=== PATIENT | female | born 1950 | race Caucasian/White ===

== ENCOUNTER 2016-11-17 01:02 | Inpatient (IN) | payer MEDICARE, OTHER ==
[~2016-11-17] VITALS: Ht 160 cm; Wt 88.1 kg
[2016-11-17 03:20] VITALS: BP 99/55
[2016-11-17 07:00] VITALS: BP 114/67
--- NOTE | 2016-11-17 09:35 | PDOC2 ---
CARMELA ADDISON CRANKSHAFT GRINDER 11/17/16 0935: CARDIAC CONSULT DATE OF CONSULT Date of Consult DATE: 11/17/16 TIME: 09:29 REASON FOR CONSULT Reason for Consult: Chest Pain REFERRING PHYSICIAN Referring Physician: Dr. Puckett SOURCE Source: Chart review, Patient HISTORY OF PRESENT ILLNESS HISTORY OF PRESENT ILLNESS This is a 66 yo female who initially presented to [facility] with complaints of chest pain. Patient reports walking out to vehicle, on the way back developed sudden onset of chest pain located in her central chest. Describes as heaviness/pressure. Associated with shortness of breath, diaphoresis, tingling in her face, jaw and neck pain, and left arm aching. After 20mins of symptoms, patient went into the ED for further evaluation. Gino any palpitations or dizziness. No recent fevers or illness. No exacerbating factors. Relieved with medications in ED. Reports having mild DUFF for some time, but feels this is because she is "out of shape". Has recently had increased stress related to grandson. Denies any history of anxiety. Does have history of GERD, but reports this pain is very different from what she generally experiences with GERD. Although, patient previously on PPI and quit taking scheduled medications, fairly recently. Has been using Tums PRN to control symptoms. Labs at [facility] notable for K 3.2, Cr 1.1, and d-dimer 0.52. Troponin <0.017. EKG shows SB rate 53 with first degree AVB. Patient transferred to [facility] for further care. Chest heaviness presently resolved. Does complain of severe RAMÍREZ and nausea. PAST MEDICAL HISTORY Cardiovascular: No pertinent hx Pulmonary: No pertinent hx GI: GERD Heme/Onc: No pertinent hx Hepatobiliary: No pertinent hx Psych: No pertinent hx Musculoskeletal: Other (back pain) Rheumatologic: Rheumatoid arthritis Infectious disease: No pertinent hx ENT: No pertinent hx Renal/: No pertinent hx Endocrine: No pertinent hx Dermatology: No pertinent hx PAST SURGICAL HISTORY Past Surgical History: Tubal Ligation, Tonsillectomy FAMILY HISTORY Family History: Cancer, Coronary Artery Disease (both mother and father. ) SOCIAL HISTORY Smoke: No ALCOHOL: none Drugs: None Lives: with Family ALLERGIES ALLERGIES: Coded Allergies: Penicillins (Verified Allergy, Intermediate, 11/17/16) lidocaine (Verified Allergy, Intermediate, 11/17/16) ROS Review of System 14 point ROS conducted with pertinent positives noted above in HPI PHYSICAL EXAM General: Alert, Oriented X3, Cooperative, No acute distress HEENT: Atraumatic, Mucous membr. moist/pink Lungs: Clear to auscultation, Normal air movement Heart: Regular rate, Normal S1, Normal S2, No murmurs Abdomen: Soft, No tenderness Extremities: No edema, Normal pulses Skin: No breakdown, No significant lesion Neuro: Normal speech, Sensation intact Psych/Mental Status: Mental status NL, Mood NL MUSCULOSKELETAL: Osteoarthritic changes both hands VITALS VITALS Vital Signs Date Time Temp Pulse Resp B/P Pulse Ox O2 Delivery O2 Flow Rate FiO2 11/17/16 07:00 97.7 67 20 114/67 96 Nasal Cannula 97.7 11/17/16 03:20 1.0 ASSESSMENT/PLAN ASSESSMENT/PLAN 1. Chest pain with typical and atypical features initial trop negative- will repeat now. EKG without ischemic changes ASA. check lipids, TSH. Pain possible GI in nature given noncompliance with PPI Although limited risk factors, will proceed with MPI to r/o ischemia, given symptomatology. \\ 2. Hypokalemia replaced. Check Mg 3. GERD recommend PPI 4. RAMÍREZ/nausea Tylenol and Zofran Problems: JUSTIN AGUILERA MD 11/17/16 1505: CARDIAC CONSULT ALLERGIES ALLERGIES: Coded Allergies: Penicillins (Verified Allergy, Intermediate, 11/17/16) lidocaine (Verified Allergy, Intermediate, 11/17/16) ASSESSMENT/PLAN ASSESSMENT/PLAN Patient seen and examined. Agree with BASKETBALL REFEREE's assessment and plan. Chest pain with atypical features and most probably GI etiology. Myocardial infarction ruled out. Lexiscan nuclear stress test did not show any significant ischemia. Replace potassium and consider proton pump inhibitors. Thank you for your consultation. Problems: CARMELA ADDISON APRN Nov 17, 2016 09:35 JUSTIN AGUILERA MD Nov 17, 2016 15:05
[2016-11-17] MEDS: ONDANSETRON PF 4 MG/2 ML VIAL. IV PRN ×2 (10:10→15:44)
[2016-11-17] MEDS: ACETAMINOPHEN 325 MG TABLET. PO PRN (10:18)
[2016-11-17] MEDS ORDERED: REGADENOSON 0.4 MG/5 ML DISP.SYRIN. IV ONE (11:15)
[2016-11-17 11:32] LABS: CALCIUM 8.7 mg/dL (8.5-10.1); CREATININE 0.8 mg/dL (0.6-1.0); GFR 71.8; MAGNESIUM 1.8 mg/dL (1.8-2.4); POTASSIUM 3.8 mmol/L (3.5-5.1)
[2016-11-17 11:33] LABS: CHOLESTEROL/HDL RATIO 3.8
[2016-11-17 11:35] VITALS: BP 128/67
--- NOTE | 2016-11-17 11:37 | SSS ---
ADMIT DATE: 11/17/2016 CHIEF COMPLAINT: Chest pain. HISTORY OF PRESENT ILLNESS: The patient is a pleasant 66-year-old female who appears younger than her stated age. She presented with chest pain. She initially went to [facility]. Dr. Velez called me in the morning transferred her here to our facility for continued cardiac workup. PAST MEDICAL HISTORY: Pretty benign. ALLERGIES: PENICILLIN, LIDOCAINE. FAMILY HISTORY: Coronary artery disease in her mom. SOCIAL HISTORY: She does not drink, smoke or take drugs. She is under a lot of stress at home. She apparently has her grandson in town trying to take care of her and he has a lot of social issues. MEDICATIONS: Reviewed, please refer to the MRAD. REVIEW OF SYSTEMS: GENERAL: No history of weight change, weakness or fevers. SKIN: No bruising, hair changes or rashes. EYES: No blurred, double or loss of vision. NOSE AND THROAT: No history of nosebleeds, hoarseness or sore throat. HEART: She complains of chest pain. LUNGS: Denies cough, hemoptysis, wheezing or shortness of breath. GASTROINTESTINAL: Denies changes in appetite, nausea, vomiting, diarrhea or constipation. GENITOURINARY: No history of frequency, urgency, hesitancy or nocturia. NEUROLOGIC: Denies history of numbness, tingling, tremor or weakness. PSYCHIATRIC: No history of panic, anxiety or depression. ENDOCRINE: No history of heat or cold intolerance, polyuria or polydipsia. EXTREMITIES: Denies muscle weakness, joint pain, pain on walking or stiffness. PHYSICAL EXAMINATION: VITAL SIGNS: Temperature afebrile, pulse 80, respirations 18, blood pressure 144/90. GENERAL: She is alert, cooperative. HEART: Normal S1, S2. LUNGS: Clear. ABDOMEN: Soft, positive bowel sounds. EXTREMITIES: No edema. SKIN: No rashes. PSYCHIATRIC: She is stable. VASCULAR: Good capillary refill. ENDOCRINE: No thyromegaly. LYMPHATICS: No cervical nodes. HEMATOPOIETIC: No bruising. LABORATORY DATA: Troponin is 0. EKG shows sinus rhythm. ASSESSMENT AND PLAN: Chest pain, rule out coronary disease. We will do cardiac monitoring, serial enzymes, serial EKGs, echocardiogram, consult Cardiology, daily aspirin. Continue home medicines. She might need a stress test. NIAL Boy REID DO DR: Sherin JOB#: [id number] / [id number]
--- NOTE | 2016-11-17 13:58 | RAD ---
APPROVED REPORT Test Type: Pharmacological Stress Nurse/Tech: Rhoda Reynoso R.N. Test Indications: chest pain Cardiac History: none Medications: see ehr Medical History: see ehr Resting ECG: sr Resting Heart Rate: 66 bpm Resting Blood Pressure: 120/63mmHg Pretest Chest Pain: No chest pain Nurse/Tech Notes lungs cta, heart tones regular, good radial pulse Consent: The procedure was explained to the patient in lay terms. Informed consent was witnessed. Luis Angel eout was entered into [employer]. History and Stress Test performed by Rhoda Reynoso R.N. Pharm. Details Pharmacologic stress testing was performed using 0.4mg per 5ml of regadenoson given intravenously ove r 7-10 seconds. Stress Symptoms No chest pain or symptoms.Nausea, Fatigue POST EXERCISE Reason for Termination: Infusion complete Target HR: No Max HR: 94 bpm Max Blood Pressure: 155/74mmHg Chest Pain: No. Arrhythmia: No. ST Change: No. INTERPRETATION Stress EKG Conclusion: No evidence of stress induced EKG changes. Imaging Protocol IMAGE PROTOCOL: Rest Tc-99m/stress Tc-99m 1 day Rest: Stress: Viability: Radiopharm.Tc99m [id number] Sestamibi Dose10.5mCi 32.9mCi Duration 15min. 10min. Img Date 11/17/2016 11/17/2016 Inj-Img [id number]. 60min. Rest Admin Site:IV - Left AntecubitalAdministrator:[place] (R)(N) Stress Admin Site: IV - Left AntecubitalAdministrator: RIK Olsen STRESS DATA End Diast. Vol.73.0mlAv. Heart Rate76.0bpm End Syst. Vol.6.0mlCO Index BSA0.0L/min Myocardial Cnrc930.0gEject. Hbqfgfdx90.0% Stress Rates Pk. Fill Rate3.51EDV/secLVtime Pk. Fill 201.12msec Pk. Empty Rate3.69ESV/secLVtime Pk. Yqmmz417.85msec 07/28 Pk. Fill1.45EDV/sec Stress Scores Regional WT0.00Summed WT0.00 Regional WM0.00Summed WM0.00 The rest and stress images show normal perfusion, normal contraction and thickening. LV Perf. Quant 17 Seg. SSS0.00 17 Seg. SRS0.00 17 Seg. SDS0.00 Stress Defect Extent (% LAD)0.00Rest Defect Extent (% LAD)0.00Rev. Defect Extent (% LAD)0.00 Stress Defect Extent (% LCX) 0.00Rest Defect Extent (% LCX)0.00Rev. Defect Extent (% LCX)0.00 Stress Defect Extent (% RCA)0.00Rest Defect Extent (% RCA)0.00Rev. Defect Extent (% RCA)0.00 Stress Defect Extent (% CLEMENTE)0.00Rest Defect Extent (% CLEMENTE)0.00Rev. Defect Extent (% CLEMENTE)0.00 Other Information Quality:Good Risk Assessment: Low Risk Conclusion 1. No evidence of stress induced EKG changes. 2. Normal myocardial perfusion at stress/rest. EF > 65% 3. Low risk study
[2016-11-17 14:43] VITALS: BP 135/74
[2016-11-17 19:45] VITALS: BP 124/77
[2016-11-17 23:30] VITALS: BP 129/78
[2016-11-17] MEDS ORDERED: ASPIRIN ENTERIC COATED 325 MG TABLET.DR. PO ONE (23:30)
[2016-11-18] VITALS (14 sets, daily range): BP systolic 98–150; BP diastolic 55–90
[2016-11-18] MEDS: ACETAMINOPHEN 325 MG TABLET. PO PRN ×2 (00:06→12:33)
--- NOTE | 2016-11-18 06:20 | ACF ---
Admit Criteria Forms Admit Criteria Forms Admit Criteria Forms CARDIOLOGY GRG Clinical Indications for Admission to Inpatient Care ( Place 'X' for any and all applicable criteria): Hospital admission is needed for appropriate care of the patient because of ANY ONE of the following (1): [ ] I. Hemodynamic instability as indicated by ALL of the following (1)(2)(3) (4)(5) [ ]a) Vital signs or other findings not as expected for chronic patient condition or baseline [ ]b) Instability indicated by ANY ONE of the following: [ ]i) Hypotension [ ]ii) Symptomatic Tachycardia unresponsive to treatment ( e.g., analgesia, fluids, sedation as indicated) [ ]iii) Inadequate perfusion indicated by ANY ONE of the following: [ ] 1) Lactic acidosis (> 2 mmol/L) [ ] 2) New abnormal capillary refill (> 3 seconds) [ ] 3) Reduced urine output [ ] 4) New altered mental status [ ]iv) Orthostatic vital sign changes unresponsive to treatment (e.g., fluids) [ ]v) IV inotropic or vasopressor medication required to maintain adequate blood pressure or perfusion [ ] II. Severe heart failure as indicated by ANY ONE of the following(17)(18) [ ]a) Respiratory distress [ ]b) Hypotension [ ]c) Anasarca (refractory to outpatient therapy) [ ]d) Cardiac arrhythmias of immediate concern [ ]e) Myocardial ischemia [ ] III. Cardiac arrhythmias or findings of immediate concern indicated by ANY ONE of the following (19)(20): [ ] a) Heart rhythms that are inherently dangerous or unstable indicated by ANY ONE of the following (21)(22)(23): [ ] i) Resuscitated ventricular fibrillation or cardiac arrest [ ] ii) Ventricular escape rhythm [ ] iii) Sustained ventricular tachycardia (30 seconds or more of ventricular rhythm at greater than 100 beats per minute) [ ] iv) Nonsustained ventricular tachycardia and ANY ONE of the following: [ ] 1) Suspected cardiac ischemia as cause or consequence of ventricular tachycardia [ ] 2) In setting of acute myocarditis [ ] b) Unstable cardiac conduction defects indicated by ANY ONE of the following(23)(24)(25) [ ] i) Type II second-degree atrioventricular block [ ]ii) Third-degree atrioventricular block [ ]iii) New-onset left bundle branch block with suspected myocardial ischemia [ ]c) Any heart rhythm and ANY ONE of the following (21)(22)(26)(27) (28) [ ] i) Continuous long-term ECG monitoring needed (e.g., initiation of drug requiring monitoring for more than 24 hours) [ ] ii) Patient has automatic implanted cardioverter defibrillator that is repeatedly firing, malfunctioning, or in need of immediate adjustment of settings beyond the scope of ambulatory or observation care [ ]d) Heart rhythms of concern due to ANY ONE of the following: [ ] i) Hypotension [ ] ii) Respiratory distress [ ] iii) Association with other significant symptoms (e.g., bradycardia with syncope or ongoing dizziness, supraventricular tachycardia with chest pain (14)(15)(17) [ ] IV. Monitoring for cardiac contusion beyond the scope of observation care needed [A](30)(31)(32) [ ] V. Surgical or device complication (e.g., valve replacement complication , pacemaker dysfunction) (35)(41)(44)(45)(46) [ ] . Inpatient palliative care needed. [B](49) Also use Inpatient Palliative Care Criteria [ ] VII. Nonbacterial thrombotic (marantic) endocarditis (36)(43)(47)(48) [X] VIII. Cardiology condition, symptom, or finding for which emergency and observation care has failed or are not considered appropriate. [ ] IX. Acute valvular disease requiring inpatient as indicated by ANY ONE of the following (41) [ ]a) Acute valvular regurgitation (42) [ ]b) Noninfectious valvulitis (43) [ ]c) Obstructive valve thrombosis [ ]d) Paravalvular leak [ ]e) Other significant valvular disorder remaining after emergency or observation level of care (as appropriate) [ ]X. Pericardial disease requiring inpatient treatment as indicated by ANY ONE of the following (33)(34)(35)(36)(37) [ ]a) Suspected tamponade (38)(39)(40) [ ]b) Hemopericardium [ ]c) Other significant pericardial disorder remaining after emergency or observation level of care (as appropriate) [ ] XI. Cardiac ischemia beyond scope of emergency and observation care. [ ] XII. Hypertension requiring inpatient treatment as indicated by ANY ONE of the following (6)(7)(8) [ ]a) SBP greater than 220 mm Hg or DBP greater than 120 mmHg despite treatment [ ]b) SBP greater than 140 mm Hg or DBP greater than 100 mm Hg with evidence of acute end organ damage as indicated by ANY ONE of the following [ ] i) Encephalopathy [ ] ii) Acute renal failure as indicated by new onset of ANY ONE of the following (9)(10)(11)(12)(13) [ ]1) 3-fold rise in serum creatinine from baseline [ ]2) Serum creatinine greater than 4 mg/dL ( 354 micromoles/L) with acute rise greater than 0.5 mg/dL (44.2 micromoles/L) [ ]3) Reduction of more than 75% in estimated glomerular filtration rate from baseline [ ]4) Estimated glomerular filtration rate less than 35 mL/min/1.73m2 (0.59 mL/sec/1.73m2) in child up to 18 years of age [ ]5) Cessation of urine output indicated by ALL of the following [ ]A. Adequate volume status [ ]B. Inadequate urine output as indicated by ANY ONE of the following [ ]a. Urine output less than 0.3 mL/kg/hr for 24 hours [ ]b. Anuria (urine output less than 0.1 mL/kg/hr) for 12 hours [ ] iii) Aortic dissection [ ] iv) Myocardial Ischemia [ ] v) Left ventricular heart failure [ ]vi) Retinal Hemorrhage [ ]vii) Other significant finding [ ]c) Hypertension in child requiring inpatient treatment as indicated by ALL of the following(14)(15)(16) [ ] i) Outpatient treatment not effective, not available, or not appropriate [ ]ii) SBP or DBP greater than 95th percentile for age [ ]iii) Evidence of acute end organ damage as indicated by ANY ONE of the following [ ]1) Altered mental status [ ]2) Acute renal failure as indicated by new onset of ANY ONE of the following(9)(10)(11)(12)(13) [ ]A. 3-fold rise in serum creatinine from baseline [ ]B. Serum creatinine greater than 4 mg/dL (354 micromoles/L) with acute rise greater than 0.5 mg/dL (44.2 micromoles/L) [ ]C. Reduction of more than 75% in estimated glomerular filtration rate from baseline [ ]D. Estimated glomerular filtration rate less than 35 mL/min/1.73m2 (0.59 mL/sec/1.73m2) in child up to 18 years of age [ ]E. Cessation of urine output indicated by ALL of the following [ ]a. Adequate volume status [ ]b. Inadequate urine output as indicated by ANY ONE of the following [ ]i) Urine output less than 0.3 mL/kg/hr for 24 hours [ ]ii) Anuria ( urine output less than 0.1 mL/kg/hr) for 12 hours [ ]3) Severe headache [ ]4) Visual disturbance [ ]5) Retinal hemorrhage [ ]6) Other significant finding [ ]XIII. Complications of transplanted heart indicated by ANY ONE of the following(61): [ ]a) Acute graft rejection requiring inpatient management (eg, intravenous immunosuppression)(62)(63) [ ]b) Acute graft heart failure indicated by ANY ONE of the following(64): [ ]i) Hemodynamic instability [ ]ii) Cardiac arrhythmias of immediate concern [ ]iii) Pulmonary edema that is very severe (eg, mechanical ventilation needed, imminent or likely, need for 100% oxygen to keep oxygen saturation above 90%) [ ]iv) Pulmonary edema that is persistent as indicated by ALL of the following: [ ]1) New need for oxygen therapy to keep oxygen saturation above 90% (or increased FiO2 need from baseline) [ ]2) Has not improved sufficiently with emergency department or observation care IV diuretics or other heart failure treatments[E] [ ]v) Altered mental status that is severe or persistent [ ]vi) Increased creatinine (new on laboratory test) with reduction of more than 50% in estimated glomerular filtration rate from baseline [ ]vii) Progressively (ongoing) rising creatinine (known from past laboratory test) with reduction of more than 25% in estimated glomerular filtration rate from baseline [ ]viii) Acute renal failure [ ]ix) Acute peripheral ischemia (eg, examination shows pulseless, cool, mottled, or cyanotic extremity) [ ]x) Pulmonary artery catheter monitoring needed [ ]xi) Other sign or symptom of heart failure requiring inpatient treatment (ie, too severe or not responsive to outpatient and observation care treatment) [ ]c) Infection requiring inpatient management (eg, Hemodynamic instability, need for intravenous antimicrobial treatment)(66)(67)(68)(69)(70) [ ]d) Cardiac allograft vasculopathy requiring inpatient management ( eg evidence of cardiac ischemia)(71) [ ]e) Other complication of transplanted heart (eg, stroke, severe pulmonary hypertension, severe valvular dysfunction) requiring inpatient management(72) The original [facility] content created by [facility] has been revised. The portions of the content which have been revised are identified through the use of italic text or in bold, and [facility] has neither reviewed nor approved the modified material. All other unmodified content is copyright [facility]. Please see references footnoted in the original [facility] edition 2016 ROSALBA STRANGE Nov 18, 2016 06:20
[2016-11-18 06:25] LABS: BASO % 1 % (0-3); EOS % 1 % (0-3); HEMATOCRIT 39.2 % (36.0-47.0); HEMOGLOBIN 13.3 g/dL (12.0-15.5); LYMPH # 1.7 x10^3/uL (1.0-4.8); LYMPH % 23 % (24-48); MEAN CORPUSCULAR HEMOGLOBIN 30 pg (25-35); MEAN CORPUSCULAR HGB CONC 34 g/dL (31-37); MEAN CORPUSCULAR VOLUME 88 fL (79-100); MONO % 9 % (0-9); NEUT % 66 % (31-73); PLATELET COUNT 215 x10^3/uL (140-400); RED BLOOD COUNT 4.44 x10^6/uL (3.50-5.40); RED CELL DISTRIBUTION WIDTH 13.5 % (11.5-14.5); WHITE BLOOD COUNT 7.2 x10^3/uL (4.0-11.0)
[2016-11-18] MEDS ORDERED: LIDOCAINE 2% 20 ML VIAL. ONE (10:16)
[2016-11-18] MEDS ORDERED: IOHEXOL 300 MG/ML 100ML VIAL. ONE (10:16)
[2016-11-18] MEDS ORDERED: NITROGLYCERIN 200 MCG/2 ML SYRINGE FOR CATH/VASC LAB. ONE (10:57)
[2016-11-18] MEDS ORDERED: HEPARIN for IV BOLUS 10,000 UNIT/10 ML VIAL. ONE (10:57)
[2016-11-18] MEDS ORDERED: VERAPAMIL 5 MG/2 ML VIAL. ONE (10:57)
[2016-11-18] MEDS ORDERED: MIDAZOLAM HCL/PF 5 MG/5 ML VIAL. ONE (10:57)
[2016-11-18] MEDS ORDERED: fentaNYL PF VIAL 250 MCG/5 ML VIAL ONE (10:57)
[2016-11-18] MEDS ORDERED: VERAPAMIL 5 MG/2 ML VIAL. IART ONE (11:30)
[2016-11-18] MEDS ORDERED: MIDAZOLAM HCL/PF 5 MG/5 ML VIAL. IV ONE (11:30)
[2016-11-18] MEDS ORDERED: fentaNYL PF VIAL 250 MCG/5 ML VIAL IV ONE (11:30)
[2016-11-18] MEDS ORDERED: HEPARIN for IV BOLUS 10,000 UNIT/10 ML VIAL. IART ONE (11:30)
[2016-11-18] MEDS ORDERED: NITROGLYCERIN 200 MCG/2 ML SYRINGE FOR CATH/VASC LAB. IART ONE (11:30)
[2016-11-18] MEDS ORDERED: IOHEXOL 300 MG/ML 100ML VIAL. IART ONE (11:30)
[2016-11-18] MEDS ORDERED: LIDOCAINE 2% 20 ML VIAL. IJ ONE (11:30)
[2016-11-18] MEDS: IV 1/2 NORMAL SALINE 1,000 ML IV SCH (11:54)
--- NOTE | 2016-11-18 11:54 | PDOC ---
MODERATE SEDATION ASSESSMENT RISKS/ALTERNATIVES Risks/Alternatives Risks and alternatives of this type of sedation and procedure discussed with: RISK/ALTERNATIVES: Patient H & P ON CHART H & P H & P on chart and reviewed for co-morbid conditions and appropriate labs. H&P ON CHART: Yes STATUS PREG STATUS ASSESSED: N/A MEDS/ALLERGIES REVIEWED Meds/Allergies Reviewed Medications and Allergies including time and route of recently administered narcotics and sedatives. MEDS/ALLERGIES REVIEWED: Yes ASA RATING ASA RATING: II AIRWAY ASSESSMENT Airway Assessment Airway patency, oral function limitations, presence of caps, crowns, dentures, partials, and ability to extend neck assessed. AIRWAY ASSESSMENT: Yes MALLAMPATI SCORE MALLAMPATI SCORE: II PRE-SEDATION ASSESSMENT PRE-SEDATION ASSESSMENT: Yes JUSTIN AGUILERA MD Nov 18, 2016 11:54
[2016-11-18] MEDS ORDERED: NITROGLYCERIN SUBLINGUAL 0.4 MG BOTTLE OF 25. SL PRN (12:00)
--- NOTE | 2016-11-18 12:08 | CARD ---
APPROVED REPORT Procedure(s) performed: Left heart catheterization, selective coronary angiography and left ventricul ography via right transradial approach INDICATION The indication(s) include : non-STEMI . PROCEDURE NARRATIVE After explaining the risks, benefits and alternative options, informed consent was obtained from sima ent. Patient was brought to the cardiac [facility]ipe [facility] and right wrist was prepped and draped in the usual fashion after confirming a positive modified Obed's test. Arterial access was obtained in the [facility] t radial artery and a 6 Persian sheath was inserted. 6 Persian Rudy catheter and 6 Persian XB 3.0 sarah de with sideholes were used to perform selective angiography of the right and left coronary arteries respectively. 6 Persian pigtail catheter was used to perform left ventriculography. Patient tolerate d the procedure well. Hemostasis was achieved using TR band. There were no immediate complications. The following findings were noted. FINDINGS 1. Hemodynamics: Left ventricular end-diastolic pressure of 20 mmHg. Pullback gradient of 10 mmHg a cross the aortic valve. 2. Left ventriculography: Normal left ventricle systolic function with ejection fraction estimated at 65%. No significant mitral regurgitation seen. 3. Coronary angiography: a. The left main coronary artery arose from the left sinus of Valsalva, gave rise to the left anteri or descending and left circumflex arteries and showed 70-80% stenosis with dampening of waveforms wit h catheter engagement. b. The left anterior descending artery showed 40-50% midsegment stenosis. c. The left circumflex artery did not show any significant stenosis. d. The right coronary artery was a dominant vessel arising from the right sinus of Valsalva that did not show any significant stenosis. Conclusion 1. Significant left main coronary artery stenosis 2. Normal left ventricle systolic function with ejection fraction estimated at 65%. Recommendations Cardiothoracic surgery team consultation for coronary artery bypass surgery.
[2016-11-18] MEDS: PANTOPRAZOLE 40 MG TABLET.DR. PO SCH (12:30)
--- NOTE | 2016-11-18 13:40 | EKG ---
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
--- NOTE | 2016-11-18 13:43 | PDOC ---
PROGRESS NOTES Chief Complaint Chief Complaint chest pain NSTEMI GERD CAD Hypokalemia History of Present Illness History of Present Illness cath today 80% Left main, refer to CT surg replace mag and K+ today cont current other Vitals Vitals Vital Signs Date Time Temp Pulse Resp B/P Pulse Ox O2 Delivery O2 Flow Rate FiO2 11/18/16 12:45 95 Room Air 2.0 11/18/16 11:38 77 16 11/18/16 11:34 115/67 11/18/16 11:00 97.7 97.7 Physical Exam General: Alert, Oriented X3, Cooperative, No acute distress Heart: Regular rate, Normal S1, Normal S2, No murmurs Lungs: Clear Abdomen: Soft, No tenderness Extremities: No clubbing, No edema, Normal pulses Skin: No breakdown, No significant lesion Labs LABS Laboratory Tests Test 11/17/16 17:45 11/17/16 23:45 11/18/16 05:55 Troponin I Quantitative 1.158ng/mL (0.000-0.055) 1.569ng/mL (0.000-0.055) 1.700ng/mL (0.000-0.055) White Blood Count 7.2x10^3/uL (4.0-11.0) Red Blood Count 4.44x10^6/uL (3.50-5.40) Hemoglobin 13.3g/dL (12.0-15.5) Hematocrit 39.2% (36.0-47.0) Mean Corpuscular Volume 88fL (79-100) Mean Corpuscular Hemoglobin 30pg (25-35) Mean Corpuscular Hemoglobin Concent 34g/dL (31-37) Red Cell Distribution Width 13.5% (11.5-14.5) Platelet Count 215x10^3/uL (140-400) Neutrophils (%) (Auto) 66% (31-73) Lymphocytes (%) (Auto) 23% (24-48) Monocytes (%) (Auto) 9% (0-9) Eosinophils (%) (Auto) 1% (0-3) Basophils (%) (Auto) 1% (0-3) Neutrophils # (Auto) 4.8x10^3uL (1.8-7.7) Lymphocytes # (Auto) 1.7x10^3/uL (1.0-4.8) Monocytes # (Auto) 0.6x10^3/uL (0.0-1.1) Eosinophils # (Auto) 0.1x10^3/uL (0.0-0.7) Basophils # (Auto) 0.0x10^3/uL (0.0-0.2) Review of Systems Review of Systems + nausea weakness after cath today no event no chest pain Comment Review of Relevant I have reviewed the following items melva (where applicable) has been applied. Labs Laboratory Tests Test 11/17/16 10:35 11/17/16 17:45 11/17/16 23:45 11/18/16 05:55 Sodium Level 140mmol/L (136-145) Potassium Level 3.8mmol/L (3.5-5.1) Chloride Level 106mmol/L (98-107) Carbon Dioxide Level 26mmol/L (21-32) Anion Gap 8 (6-14) Blood Urea Nitrogen 11mg/dL (7-20) Creatinine 0.8mg/dL (0.6-1.0) Estimated GFR (Cockcroft-Gault) 71.8 Glucose Level 122mg/dL (70-99) Calcium Level 8.7mg/dL (8.5-10.1) Magnesium Level 1.8mg/dL (1.8-2.4) Troponin I Quantitative 0.880ng/mL (0.000-0.055) 1.158ng/mL (0.000-0.055) 1.569ng/mL (0.000-0.055) 1.700ng/mL (0.000-0.055) Triglycerides Level 134mg/dL (0-150) Cholesterol Level 192mg/dL (0-200) LDL Cholesterol, Calculated 115mg/dL (0-100) VLDL Cholesterol, Calculated 27mg/dL (0-40) Non-HDL Cholesterol Calculated 142mg/dL (0-129) HDL Cholesterol 50mg/dL (40-60) Cholesterol/HDL Ratio 3.8 Thyroid Stimulating Hormone (TSH) 1.673uIU/mL (0.358-3.74) White Blood Count 7.2x10^3/uL (4.0-11.0) Red Blood Count 4.44x10^6/uL (3.50-5.40) Hemoglobin 13.3g/dL (12.0-15.5) Hematocrit 39.2% (36.0-47.0) Mean Corpuscular Volume 88fL (79-100) Mean Corpuscular Hemoglobin 30pg (25-35) Mean Corpuscular Hemoglobin Concent 34g/dL (31-37) Red Cell Distribution Width 13.5% (11.5-14.5) Platelet Count 215x10^3/uL (140-400) Neutrophils (%) (Auto) 66% (31-73) Lymphocytes (%) (Auto) 23% (24-48) Monocytes (%) (Auto) 9% (0-9) Eosinophils (%) (Auto) 1% (0-3) Basophils (%) (Auto) 1% (0-3) Neutrophils # (Auto) 4.8x10^3uL (1.8-7.7) Lymphocytes # (Auto) 1.7x10^3/uL (1.0-4.8) Monocytes # (Auto) 0.6x10^3/uL (0.0-1.1) Eosinophils # (Auto) 0.1x10^3/uL (0.0-0.7) Basophils # (Auto) 0.0x10^3/uL (0.0-0.2) Laboratory Tests Test 11/17/16 17:45 11/17/16 23:45 11/18/16 05:55 Troponin I Quantitative 1.158ng/mL (0.000-0.055) 1.569ng/mL (0.000-0.055) 1.700ng/mL (0.000-0.055) White Blood Count 7.2x10^3/uL (4.0-11.0) Red Blood Count 4.44x10^6/uL (3.50-5.40) Hemoglobin 13.3g/dL (12.0-15.5) Hematocrit 39.2% (36.0-47.0) Mean Corpuscular Volume 88fL (79-100) Mean Corpuscular Hemoglobin 30pg (25-35) Mean Corpuscular Hemoglobin Concent 34g/dL (31-37) Red Cell Distribution Width 13.5% (11.5-14.5) Platelet Count 215x10^3/uL (140-400) Neutrophils (%) (Auto) 66% (31-73) Lymphocytes (%) (Auto) 23% (24-48) Monocytes (%) (Auto) 9% (0-9) Eosinophils (%) (Auto) 1% (0-3) Basophils (%) (Auto) 1% (0-3) Neutrophils # (Auto) 4.8x10^3uL (1.8-7.7) Lymphocytes # (Auto) 1.7x10^3/uL (1.0-4.8) Monocytes # (Auto) 0.6x10^3/uL (0.0-1.1) Eosinophils # (Auto) 0.1x10^3/uL (0.0-0.7) Basophils # (Auto) 0.0x10^3/uL (0.0-0.2) Medications Current Medications Acetaminophen (Tylenol) 650 mg PRN Q6HRS PRN PO PAIN Last administered on 12:33; Start 11/17/16 at 10:00 Ondansetron HCl (Zofran) 4 mg PRN Q6HRS PRN IV NAUSEA/VOMITING Last administered on 11/17/16 15:44; Start 11/17/16 at 10:15 Pantoprazole Sodium (Protonix) 40 mg DAILYAC PO Last administered on 11/18/16 12:30; Start 11/18/16 at 07:30 Regadenoson (Lexiscan) 0.4 mg 1X ONCE IV Last administered on 11/17/16 11:45 ; Start 11/17/16 at 11:15; Stop 11/17/16 at 11:16; Status DC Aspirin (Ecotrin) 325 mg 1X ONCE PO Last administered on 11/18/16 00:06; Start 11/17/16 at 23:30; Stop 11/17/16 at 23:31; Status DC Iohexol 100 ml 100 ml STK-MED ONCE .ROUTE ; Start 11/18/16 at 10:16; Stop at 10:17; Status DC Heparin Sodium/ Sodium Chloride 1,000 ml @ As Directed STK-MED ONCE .ROUTE ; Start 11/18/16 at 10:16; Stop 11/18/16 at 10:17; Status DC Lidocaine HCl 20 ml STK-MED ONCE .ROUTE ; Start 11/18/16 at 10:16; Stop at 10:17; Status DC Nitroglycerin (Nitroglycerin) 200 mcg STK-MED ONCE .ROUTE ; Start 11/18/16 at 10 :57; Stop 11/18/16 at 10:58; Status DC Verapamil HCl (Verapamil) 5 mg STK-MED ONCE .ROUTE ; Start 11/18/16 at 10:57; Stop 11/18/16 at 10:58; Status DC Midazolam HCl (Versed) 5 mg STK-MED ONCE .ROUTE ; Start 11/18/16 at 10:57; Stop 11/18/16 at 10:58; Status DC Fentanyl Citrate (Fentanyl 5ml Vial) 250 mcg STK-MED ONCE .ROUTE ; Start at 10:57; Stop 11/18/16 at 10:58; Status DC Heparin Sodium (Porcine) (Heparin Sodium) 10,000 unit STK-MED ONCE .ROUTE ; Start 11/18/16 at 10:57; Stop 11/18/16 at 10:58; Status DC Nitroglycerin (Nitroglycerin) 200 mcg 1X ONCE IART Last administered on 11:34; Start 11/18/16 at 11:30; Stop 11/18/16 at 11:31; Status DC Verapamil HCl (Verapamil) 2.5 mg 1X ONCE IART Last administered on 11/18/16 11:34; Start 11/18/16 at 11:30; Stop 11/18/16 at 11:31; Status DC Heparin Sodium (Porcine) (Heparin Sodium) 2,500 unit 1X ONCE IART Last administered on 11/18/16 11:41; Start 11/18/16 at 11:30; Stop 11/18/16 at 11:31 ; Status DC Heparin Sodium/ Sodium Chloride 1,000 unit 1X ONCE IART Last administered on 11:34; Start 11/18/16 at 11:30; Stop 11/18/16 at 11:31; Status DC Midazolam HCl (Versed) 5 mg 1X ONCE IV Last administered on 11/18/16 11:33; Start 11/18/16 at 11:30; Stop 11/18/16 at 11:31; Status DC Fentanyl Citrate (Fentanyl 5ml Vial) 250 mcg 1X ONCE IV Last administered on 11:33; Start 11/18/16 at 11:30; Stop 11/18/16 at 11:31; Status DC Iohexol (Omnipaque 300 Mg/ml) 100 ml 1X ONCE IART Last administered on 11:34; Start 11/18/16 at 11:30; Stop 11/18/16 at 11:31; Status DC Lidocaine HCl 20 ml 20 ml 1X ONCE IJ Last administered on 11/18/16 11:34; Start 11/18/16 at 11:30; Stop 11/18/16 at 11:31; Status DC Sodium Chloride (Iv Sodium Chloride 0.45%) 1,000 ml @ 60 mls/hr [id number] IV Last administered on 11/18/16 11:54; Start 11/18/16 at 11:54 Nitroglycerin (Nitrostat) 0.4 mg PRN Q5MIN PRN SL CHEST PAIN; Start 11/18/16 at 12:00 Vitals/I & O Vital Sign - Last 24 Hours 11/17/16 11/17/16 11/17/16 11/17/16 14:43 19:45 20:15 23:30 Temp 97.7 97.9 98.0 97.7 97.9 98.0 Pulse 71 71 73 Resp 22 18 18 B/P 135/74 124/77 129/78 Pulse Ox 93 95 92 O2 Delivery Room Air Room Air Nasal Cannula Room Air O2 Flow Rate 1.0 11/18/16 11/18/16 11/18/16 11/18/16 03:25 07:00 08:00 11:00 Temp 98.5 98.1 97.7 98.5 98.1 97.7 Pulse 76 70 67 Resp 18 18 18 B/P 98/68 130/82 139/90 Pulse Ox 94 93 95 O2 Delivery Room Air Room Air Room Air Room Air 11/18/16 11/18/16 11/18/16 11/18/16 11:33 11:34 11:38 12:45 Pulse 78 77 Resp 16 16 B/P 115/67 Pulse Ox 95 95 95 O2 Delivery Room Air Nasal Cannula Room Air O2 Flow Rate 2.0 2.0 Intake and Output 11/17/16 11/17/16 11/18/16 15:00 23:00 07:00 Intake Total 0 ml Output Total 1750 ml 500 ml Balance -1750 ml -500 ml TOY CHAMPION MD Nov 18, 2016 13:43
[2016-11-18] MEDS ORDERED: POTASSIUM CHLORIDE 20 MEQ TABLET.ER. PO ONE (13:45)
--- NOTE | 2016-11-18 13:56 | RAD ---
Exam: AP portable chest. History: Chest pain, preoperative, CABG. Comparison: None. Findings: The heart and mediastinal structures are within normal limits for size. Lungs are without infiltrate. No pneumothorax or pleural effusion is appreciated. Impression: 1. No acute cardiopulmonary process.
[2016-11-18] MEDS ORDERED: MAGNESIUM SULFATE 2GM 50 ML IV ONE (14:00)
[2016-11-18] MEDS: DOCUSATE SODIUM 100 MG CAPSULE. PO SCH (14:00)
[2016-11-18] MEDS: ONDANSETRON PF 4 MG/2 ML VIAL. IV PRN (14:01)
[2016-11-18 14:35] LABS: INR 1.1 (0.8-1.1); PROTHROMBIN TIME PATIENT 13.1 SEC (11.7-14.0)
[2016-11-18] MEDS ORDERED: IOHEXOL 300 MG/ML 75 ML VIAL IV ONE (15:00)
[2016-11-18] MEDS ORDERED: CONTRAST GIVEN MC PRN (15:00)
--- NOTE | 2016-11-18 15:03 | PDOC2 ---
CONSULT Date of Consult Date of Consult DATE: 11/18/16 TIME: 15:00 Reason for Consult Reason for Consult: NSTEMI-LMS disease Referring Physician Referring Physician: Dr Noyola Identification/Chief Complaint Chief Complaint Chest pain Source Source: Chart review, Patient History of Present Illness Reason for Visit: Ms Ellington is a pleasant 66-year-old female who presented yesterday to [facility] with acute onset of chest pain. She describes the pain as heaviness/ pressure. Associated with shortness of breath, diaphoresis, tingling in her face , jaw and neck pain, and left arm aching. Denied palpitations. Relieved with medications in ED. no EKG changes, but troponin peaked at 1.5. She was transferred to [facility]. She subsequently had a coronary angiogram today which demonstrated 70-80% left main disease. There is a 40-50% stenosis in the proximal mid LAD. The left circumflex and RCA are without any disease. Her left ventricular function is normal. I was consulted to consider the patient for surgical coronary revascularization in view of her left main disease. Past Medical History Cardiovascular: No pertinent hx Pulmonary: No pertinent hx GI: GERD Heme/Onc: No pertinent hx Hepatobiliary: No pertinent hx Psych: No pertinent hx Musculoskeletal: Other (back pain) Rheumatologic: Rheumatoid arthritis Infectious disease: No pertinent hx ENT: No pertinent hx Renal/: No pertinent hx Endocrine: No pertinent hx Dermatology: No pertinent hx Past Surgical History Past Surgical History: Tubal Ligation, Tonsillectomy Family History Family History: Cancer, Coronary Artery Disease (both mother and father. ) Social History No ALCOHOL: none Drugs: None Lives: with Family Current Medications Current Medications Current Medications Acetaminophen (Tylenol) 650 mg PRN Q6HRS PRN PO PAIN Last administered on 12:33; Start 11/17/16 at 10:00 Ondansetron HCl (Zofran) 4 mg PRN Q6HRS PRN IV NAUSEA/VOMITING Last administered on 11/18/16 14:01; Start 11/17/16 at 10:15 Pantoprazole Sodium (Protonix) 40 mg DAILYAC PO Last administered on 11/18/16 12:30; Start 11/18/16 at 07:30 Regadenoson (Lexiscan) 0.4 mg 1X ONCE IV Last administered on 11/17/16 11:45 ; Start 11/17/16 at 11:15; Stop 11/17/16 at 11:16; Status DC Aspirin (Ecotrin) 325 mg 1X ONCE PO Last administered on 11/18/16 00:06; Start 11/17/16 at 23:30; Stop 11/17/16 at 23:31; Status DC Iohexol 100 ml 100 ml STK-MED ONCE .ROUTE ; Start 11/18/16 at 10:16; Stop at 10:17; Status DC Heparin Sodium/ Sodium Chloride 1,000 ml @ As Directed STK-MED ONCE .ROUTE ; Start 11/18/16 at 10:16; Stop 11/18/16 at 10:17; Status DC Lidocaine HCl 20 ml STK-MED ONCE .ROUTE ; Start 11/18/16 at 10:16; Stop at 10:17; Status DC Nitroglycerin (Nitroglycerin) 200 mcg STK-MED ONCE .ROUTE ; Start 11/18/16 at 10 :57; Stop 11/18/16 at 10:58; Status DC Verapamil HCl (Verapamil) 5 mg STK-MED ONCE .ROUTE ; Start 11/18/16 at 10:57; Stop 11/18/16 at 10:58; Status DC Midazolam HCl (Versed) 5 mg STK-MED ONCE .ROUTE ; Start 11/18/16 at 10:57; Stop 11/18/16 at 10:58; Status DC Fentanyl Citrate (Fentanyl 5ml Vial) 250 mcg STK-MED ONCE .ROUTE ; Start at 10:57; Stop 11/18/16 at 10:58; Status DC Heparin Sodium (Porcine) (Heparin Sodium) 10,000 unit STK-MED ONCE .ROUTE ; Start 11/18/16 at 10:57; Stop 11/18/16 at 10:58; Status DC Nitroglycerin (Nitroglycerin) 200 mcg 1X ONCE IART Last administered on 11:34; Start 11/18/16 at 11:30; Stop 11/18/16 at 11:31; Status DC Verapamil HCl (Verapamil) 2.5 mg 1X ONCE IART Last administered on 11/18/16 11:34; Start 11/18/16 at 11:30; Stop 11/18/16 at 11:31; Status DC Heparin Sodium (Porcine) (Heparin Sodium) 2,500 unit 1X ONCE IART Last administered on 11/18/16 11:41; Start 11/18/16 at 11:30; Stop 11/18/16 at 11:31 ; Status DC Heparin Sodium/ Sodium Chloride 1,000 unit 1X ONCE IART Last administered on 11:34; Start 11/18/16 at 11:30; Stop 11/18/16 at 11:31; Status DC Midazolam HCl (Versed) 5 mg 1X ONCE IV Last administered on 11/18/16 11:33; Start 11/18/16 at 11:30; Stop 11/18/16 at 11:31; Status DC Fentanyl Citrate (Fentanyl 5ml Vial) 250 mcg 1X ONCE IV Last administered on 11:33; Start 11/18/16 at 11:30; Stop 11/18/16 at 11:31; Status DC Iohexol (Omnipaque 300 Mg/ml) 100 ml 1X ONCE IART Last administered on 11:34; Start 11/18/16 at 11:30; Stop 11/18/16 at 11:31; Status DC Lidocaine HCl 20 ml 20 ml 1X ONCE IJ Last administered on 11/18/16 11:34; Start 11/18/16 at 11:30; Stop 11/18/16 at 11:31; Status DC Sodium Chloride (Iv Sodium Chloride 0.45%) 1,000 ml @ 60 mls/hr [id number] IV Last administered on 11/18/16 11:54; Start 11/18/16 at 11:54 Nitroglycerin 0.4 mg 0.4 mg PRN Q5MIN PRN SL CHEST PAIN; Start 11/18/16 at 12: 00 Magnesium Sulfate/ Dextrose (Magnesium Sulfate PREMIX 2GM) 50 ml @ 25 mls/hr 1X ONCE IV ; Start 11/18/16 at 14:00; Stop 11/18/16 at 15:59 Potassium Chloride (Klor-Con) 20 meq 1X ONCE PO ; Start 11/18/16 at 13:45; Stop 11/18/16 at 13:46; Status DC Ondansetron HCl (Zofran) 4 mg PRN Q8HRS PRN IV NAUSEA/VOMITING; Start 11/18/16 at 13:45 Docusate Sodium (Colace) 100 mg DAILY PO ; Start 11/18/16 at 14:00 Polyethylene Glycol (miraLAX PACKET) 17 gm PRN DAILY PRN PO CONSTIPATION; Start 11/18/16 at 13:45 Iohexol (Omnipaque 300 Mg/ml) 75 ml 1X ONCE IV ; Start 11/18/16 at 15:00; Stop 11/18/16 at 15:01 Info (Do NOT chart on this entry -- for MONITORING) 1 each PRN DAILY PRN MC SEE COMMENTS; Start 11/18/16 at 15:00; Stop 11/20/16 at 14:59 Allergies Allergies: Coded Allergies: Penicillins (Verified Allergy, Intermediate, 11/17/16) lidocaine (Verified Allergy, Intermediate, 11/17/16) ROS General: No: Appetite, Chills, Fatigue, Malaise, Night Sweats PSYCHOLOGICAL ROS: No: Anxiety, Behavioral Disorder, Concentration difficultie , Decreased libido, Depression, Disorientation, Hallucinations, Hostility, Irritablity, Memory difficulties, Mood Swings, Obsessive thoughts, Physical abuse, Sexual abuse, Sleep disturbances, Suicidal ideation Eyes: No Blurry vision, No Decreased vision, No Double vision, No Dry eyes, No Excessive tearing, No Eye Pain, No Itchy Eyes, No Loss of vision, No Photophobia , No Scotomata, No Uses contacts, No Uses glasses HEENT: No: Epistaxis, Heacaches, Hearing change, Nasal congestion, Nasal discharge, Oral lesions, Sinus pain, Sneezing, Snoring, Sore Throat, Tinnitus, Vertigo, Visual Changes, Vocal changes ALLERGY AND IMMUNOLOGY: No: Hives, Insect Bite Sensitivity, Itchy/Watery Eyes, Nasal Congestion, Post Nasal Drip, Seasonal Allergies Hematological and Lymphatic: No: Bleeding Problems, Blood Clots, Blood Transfusions, Brusing, Night Sweats, Pallor, Swollen Lymph Nodes ENDOCRINE: No: Breast Changes, Galactorrhea, Hair Pattern Changes, Hot Flashes , Malaise/lethargy, Mood Swings, Palpitations, Polydipsia/polyuria, Skin Changes , Temperature Intolerance, Unexpected Weight Changes Breast: No New/Changing Breast Lumps, No Nipple changes, No Nipple discharge Respiratory: YES: Shortness of breath, No: Cough, Hemoptysis, Orthopnea, Pleuritic Pain, SOB with excertion, Sputum Changes, Stridor, Tachypnea, Wheezing Cardiovascular: yes Chest Pain, No Edema, No Lt Headedness, No Orthopnea, No Palpitations, No Paroxysmal Noc. Dyspnea Gastrointestinal: No Abdominal Pain, No Constipation, No Diarrhea, No Hematochezia, No Melena, No Nausea, No Vomiting Genitourinary: No Discharge, No Dysuria, No Flank Pain, No Frequency, No Hematuria, No Incontinence, No Pain, No Retention, No Urgency Musculoskeletal: No Gait Disturbance, No Joint Pain, No Joint Stiffness, No Joint Swelling, No Muscle Pain, No Muscular Weakness, No Pain In:, No Swelling In: Neurological: No Behavorial Changes, No Bowel/Bladder ControlChng, No Confusion , No Dizziness, No Gait Disturbance, No Headaches, No Impaired Coord/balance, No Memory Loss, No Numbness/Tingling, No Seizures, No Speech Problems, No Tremors, No Visual Changes, No Weakness Skin: No Acne, No Dry Skin, No Eczema, No Hair Changes, No Lumps, No Mole Changes, No Mottling, No Nail Changes, No Pruritus, No Rash, No Skin Lesion Changes Physical Exam General: Alert, Oriented X3, No acute distress HEENT: Atraumatic, PERRLA Lungs: Clear to auscultation Heart: Regular rate, Normal S1, Normal S2 Abdomen: Soft, No tenderness Extremities: No edema, Normal pulses Skin: No breakdown Neuro: Normal gait, Normal speech, Strength at 5/5 X4 ext, Normal tone, Sensation intact, Cranial nerves 3-12 NL Psych/Mental Status: Mental status NL MUSCULOSKELETAL: No deformity Vitals VITALS Vital Signs Date Time Temp Pulse Resp B/P Pulse Ox O2 Delivery O2 Flow Rate FiO2 11/18/16 12:45 95 Room Air 2.0 11/18/16 11:38 77 16 11/18/16 11:34 115/67 11/18/16 11:00 97.7 97.7 Labs Labs Laboratory Tests Test 11/17/16 10:35 11/17/16 17:45 11/17/16 23:45 11/18/16 05:55 Sodium Level 140mmol/L (136-145) Potassium Level 3.8mmol/L (3.5-5.1) Chloride Level 106mmol/L (98-107) Carbon Dioxide Level 26mmol/L (21-32) Anion Gap 8 (6-14) Blood Urea Nitrogen 11mg/dL (7-20) Creatinine 0.8mg/dL (0.6-1.0) Estimated GFR (Cockcroft-Gault) 71.8 Glucose Level 122mg/dL (70-99) Calcium Level 8.7mg/dL (8.5-10.1) Magnesium Level 1.8mg/dL (1.8-2.4) Troponin I Quantitative 0.880ng/mL (0.000-0.055) 1.158ng/mL (0.000-0.055) 1.569ng/mL (0.000-0.055) 1.700ng/mL (0.000-0.055) Triglycerides Level 134mg/dL (0-150) Cholesterol Level 192mg/dL (0-200) LDL Cholesterol, Calculated 115mg/dL (0-100) VLDL Cholesterol, Calculated 27mg/dL (0-40) Non-HDL Cholesterol Calculated 142mg/dL (0-129) HDL Cholesterol 50mg/dL (40-60) Cholesterol/HDL Ratio 3.8 Thyroid Stimulating Hormone (TSH) 1.673uIU/mL (0.358-3.74) White Blood Count 7.2x10^3/uL (4.0-11.0) Red Blood Count 4.44x10^6/uL (3.50-5.40) Hemoglobin 13.3g/dL (12.0-15.5) Hematocrit 39.2% (36.0-47.0) Mean Corpuscular Volume 88fL (79-100) Mean Corpuscular Hemoglobin 30pg (25-35) Mean Corpuscular Hemoglobin Concent 34g/dL (31-37) Red Cell Distribution Width 13.5% (11.5-14.5) Platelet Count 215x10^3/uL (140-400) Neutrophils (%) (Auto) 66% (31-73) Lymphocytes (%) (Auto) 23% (24-48) Monocytes (%) (Auto) 9% (0-9) Eosinophils (%) (Auto) 1% (0-3) Basophils (%) (Auto) 1% (0-3) Neutrophils # (Auto) 4.8x10^3uL (1.8-7.7) Lymphocytes # (Auto) 1.7x10^3/uL (1.0-4.8) Monocytes # (Auto) 0.6x10^3/uL (0.0-1.1) Eosinophils # (Auto) 0.1x10^3/uL (0.0-0.7) Basophils # (Auto) 0.0x10^3/uL (0.0-0.2) Test 11/18/16 14:10 Prothrombin Time 13.1SEC (11.7-14.0) Prothromb Time International Ratio 1.1 (0.8-1.1) Activated Partial Thromboplast Time 29SEC (24-38) Laboratory Tests Test 11/17/16 17:45 11/17/16 23:45 11/18/16 05:55 11/18/16 14:10 Troponin I Quantitative 1.158ng/mL (0.000-0.055) 1.569ng/mL (0.000-0.055) 1.700ng/mL (0.000-0.055) White Blood Count 7.2x10^3/uL (4.0-11.0) Red Blood Count 4.44x10^6/uL (3.50-5.40) Hemoglobin 13.3g/dL (12.0-15.5) Hematocrit 39.2% (36.0-47.0) Mean Corpuscular Volume 88fL (79-100) Mean Corpuscular Hemoglobin 30pg (25-35) Mean Corpuscular Hemoglobin Concent 34g/dL (31-37) Red Cell Distribution Width 13.5% (11.5-14.5) Platelet Count 215x10^3/uL (140-400) Neutrophils (%) (Auto) 66% (31-73) Lymphocytes (%) (Auto) 23% (24-48) Monocytes (%) (Auto) 9% (0-9) Eosinophils (%) (Auto) 1% (0-3) Basophils (%) (Auto) 1% (0-3) Neutrophils # (Auto) 4.8x10^3uL (1.8-7.7) Lymphocytes # (Auto) 1.7x10^3/uL (1.0-4.8) Monocytes # (Auto) 0.6x10^3/uL (0.0-1.1) Eosinophils # (Auto) 0.1x10^3/uL (0.0-0.7) Basophils # (Auto) 0.0x10^3/uL (0.0-0.2) Prothrombin Time 13.1SEC (11.7-14.0) Prothromb Time International Ratio 1.1 (0.8-1.1) Activated Partial Thromboplast Time 29SEC (24-38) Images Images FINDINGS 1. Hemodynamics: Left ventricular end-diastolic pressure of 20 mmHg. Pullback gradient of 10 mmHg across the aortic valve. 2. Left ventriculography: Normal left ventricle systolic function with ejection fraction estimated at 65%. No significant mitral regurgitation seen. 3. Coronary angiography: a. The left main coronary artery arose from the left sinus of Valsalva, gave rise to the left anterior descending and left circumflex arteries and showed 70- 80% stenosis with dampening of waveforms with catheter engagement. b. The left anterior descending artery showed 40-50% midsegment stenosis. c. The left circumflex artery did not show any significant stenosis. d. The right coronary artery was a dominant vessel arising from the right sinus of Valsalva that did not show any significant stenosis. Assessment/Plan Assessment/Plan 66-year-old female, with a strong family history of ischemic heart disease, presented yesterday with a non-STEMI. Coronary angiography demonstrated 70-80% left main disease. There was a mild 40-50% mid LAD stenosis. The left circumflex and right coronary eye without any disease. Her left ventricular ejection fraction is normal. In view of her significant left main disease I think she would be appropriate candidate for CABG. I quoted a mortality risk of 1-2%, 1% risk of stroke, 1% risk of renal failure requiring dialysis, 5% risk of wound infection, 5% risk of pneumonia, 1% risk of the VDRF, 5% risk of perioperative ME, a 5-10% risk of re-sternotomy for hemorrhage, 20-30% risk of arrhythmias. The patient accepts these risks and agrees to proceed. Plan for CABG 2 (GUZMÁN to LAD, SVG to OM), tomorrow November 19, 2016. Will obtain: Transthoracic echo Noncontrast CT of the chest Carotid duplex Bilateral lower extremity vein mapping Crossmatch to units PRBCs Coags Informed consent DAVID CHAMPAGNE MD Nov 18, 2016 15:03
[2016-11-18] MEDS ORDERED: PROCHLORPERAZINE 10 MG/2 ML VIAL. IV ONE (15:45)
--- NOTE | 2016-11-18 15:54 | RAD ---
CT of the chest without contrast, 11/18/2016: History: Preop evaluation for CABG Noncontrast scans were obtained as requested. There is mild calcific plaquing of the thoracic aorta without evidence of aneurysm. Coronary artery calcifications are present. There are calcified mediastinal and hilar lymph nodes compatible with old granulomatous disease. No mediastinal adenopathy is seen. There are calcified granulomata in the right middle lobe. There is a small calcified subpleural nodule in the posteromedial aspect of the left upper lobe compatible with a granuloma. There is mild atelectasis in both lower lobes in the posterior costophrenic angles. No significant volume of pleural fluid is seen. The scans through the upper abdomen demonstrate densities in the medullary regions of both kidneys suggesting medullary nephrocalcinosis. This can be due to a variety of causes including medullary sponge kidney. There are moderate scattered spurs in the thoracic spine. IMPRESSION: 1. 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 2. Mild atelectasis posteriorly in both lung bases. 3. 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 4. Bilateral medullary nephrocalcinosis PQRS Compliance Statement: One or more of the following individualized dose reduction techniques were utilized for this examination: 1. Automated exposure control 2. Adjustment of the mA and/or kV according to patient size 3. Use of iterative reconstruction technique
--- NOTE | 2016-11-18 16:38 | CARD ---
APPROVED REPORT EXAM: Two-dimensional and M-mode echocardiogram with Doppler and color Doppler. Other Information Quality : GoodHR: 67bpm Rhythm : NSR INDICATION Cardiac Disease: CAD Chest Pain 2D DIMENSIONS RVDd2.5 (2.9-3.5cm)Left Atrium(2D)3.8 (1.6-4.0cm) IVSd0.9 (0.7-1.1cm)Aortic Root(2D)2.1 (2.0-3.7cm) LVDd4.6 (3.9-5.9cm)LVOT Diameter2.3 (1.8-2.4cm) PWd1.0 (0.7-1.1cm)LVDs3.2 (2.5-4.0cm) FS (%) 30.9 %SV55.9 ml LVEF(%)58.6 (>50%) Aortic Valve AoV Peak Eric.149.0cm/sAoV VTI34.5cm AO Peak GR.8.9mmHgLVOT VTI 3.57cm AO Mean GR.5mmHg Mitral Valve MV E Fdrqxqxm29.7cm/sMV E Peak Gr.3mmHg MV DECEL [id number] A Akyxgvuk72.0cm/s MV E Mean Gr.1mmHgE/A Ratio1.1 MV A [id number] TDI Lateral E' P. V10.26cm/sMedial E' P. V8.59cm/s E/Lateral E'8.1E/Medial E'9.6 Pulmonary Vein S1 Iuntmxgb36.9cm/sS2 Pcwtpsbz96.13cm/s D2 Asrwrula55.1cm/sPVa [id number] LEFT VENTRICLE The left ventricle is normal size. There is normal left ventricular wall thickness. The left ventricu lar systolic function is normal. The Ejection Fraction is 55-60%. There is normal LV segmental wall m otion. The left ventricular diastolic function and filling is normal for age. RIGHT VENTRICLE The right ventricle is normal size. There is normal right ventricular wall thickness. The right ventr icular systolic function is normal. ATRIA The left atrium size is normal. The right atrium size is normal. The interatrial septum is intact wit h no evidence for an atrial septal defect or patent foramen ovale as noted on 2-D or Doppler imaging. AORTIC VALVE The aortic valve is not well visualized but appears to opens well. Doppler and Color Flow revealed no significant aortic regurgitation. There is no significant aortic valvular stenosis. MITRAL VALVE The mitral valve leaflets are thickened. There is no evidence of mitral valve prolapse. There is no m itral valve stenosis. Doppler and Color Flow revealed trace mitral valve regurgitation noted. TRICUSPID VALVE Doppler and Color Flow revealed no tricuspid valve regurgitation noted. There is no pulmonary hyperte nsion. PULMONIC VALVE The pulmonic valve is not well visualized but appears to opens well. Doppler and Color Flow revealed no pulmonic valvular regurgitation. There is no pulmonic valvular stenosis. GREAT VESSELS The aortic root is normal in size. The ascending aorta is normal in size. The pulmonary artery is nor mal. The IVC is normal in size and collapses >50% with inspiration. PERICARDIAL EFFUSION There is no evidence of significant pericardial effusion. Critical Notification Critical Value: No <Conclusion> The left ventricular systolic function is normal. The Ejection Fraction is 55-60%. There is normal LV segmental wall motion. Trace mitral valve regurgitation noted. There is no evidence of significant pericardial effusion.
[2016-11-19] VITALS (15 sets, daily range): BP systolic 84–125; BP diastolic 40–85
[2016-11-19] MEDS: IV 1/2 NORMAL SALINE 1,000 ML IV SCH ×2 (04:33→21:14)
[2016-11-19 04:38] LABS: BASO % 1 % (0-3); EOS % 1 % (0-3); HEMATOCRIT 38.7 % (36.0-47.0); HEMOGLOBIN 12.9 g/dL (12.0-15.5); LYMPH # 1.8 x10^3/uL (1.0-4.8); LYMPH % 26 % (24-48); MEAN CORPUSCULAR HEMOGLOBIN 30 pg (25-35); MEAN CORPUSCULAR HGB CONC 33 g/dL (31-37); MEAN CORPUSCULAR VOLUME 90 fL (79-100); MONO % 8 % (0-9); NEUT % 64 % (31-73); PLATELET COUNT 206 x10^3/uL (140-400); RED CELL DISTRIBUTION WIDTH 13.5 % (11.5-14.5); WHITE BLOOD COUNT 6.8 x10^3/uL (4.0-11.0)
[2016-11-19 04:57] LABS: ALBUMIN 2.9 g/dL (3.4-5.0); GFR 55.5; POTASSIUM 3.7 mmol/L (3.5-5.1); TOTAL BILIRUBIN 0.3 mg/dL (0.2-1.0); TOTAL PROTEIN 5.8 g/dL (6.4-8.2)
[2016-11-19] MEDS ORDERED: POTASSIUM CHLORIDE 15 MEQ, SODIUM BICARBONATE VIAL 12.5 MEQ in IV ELECTROLYTE-S (PH 7.4... IRR ONE (06:00)
[2016-11-19] MEDS ORDERED: POTASSIUM CHLORIDE 70 MEQ, SODIUM BICARBONATE VIAL 12.5 MEQ, LIDOCAINE 2% 24 ML in IV E... IRR ONE (06:00)
[2016-11-19] MEDS ORDERED: HEPARIN 20,000 UNIT in IV RINGERS,LACTATED 1000ML 1,000 ML IRR ONE (06:00)
[2016-11-19] MEDS ORDERED: SUFentanil 100 MCG/2 ML AMPUL. ONE ×2 (06:33→08:56)
[2016-11-19] MEDS ORDERED: ROCURONIUM 100 MG/10 ML VIAL. ONE ×2 (06:33→08:51)
[2016-11-19] MEDS ORDERED: MIDAZOLAM HCL/PF 2 MG/2 ML VIAL. ONE (06:33)
[2016-11-19] MEDS ORDERED: HEPARIN for IV BOLUS 10,000 UNIT/10 ML VIAL. ONE ×4 (06:35)
[2016-11-19] MEDS ORDERED: AMINOCAPROIC ACID 5,000 MG/20 ML VIAL. IV ONE ×3 (06:35)
[2016-11-19] MEDS ORDERED: NITROGLYCERIN PREMIX 250 ML IV ONE (06:35)
[2016-11-19] MEDS ORDERED: ETOMIDATE 20 MG/10 ML VIAL. IV ONE (06:35)
[2016-11-19] MEDS ORDERED: PHENYLEPHRINE 10 MG/ML VIAL. ONE ×3 (06:35)
[2016-11-19] MEDS ORDERED: ISOFLURANE > 120 MINUTES. IH ONE (06:35)
[2016-11-19] MEDS ORDERED: LIDOCAINE 2% 100 MG/5 ML SYRINGE. ONE ×2 (06:35→12:26)
[2016-11-19] MEDS ORDERED: ePHEDrine PF IN SALINE 50 MG/5 ML DISP.SYRIN IV ONE (06:36)
[2016-11-19] MEDS ORDERED: LIDOCAINE 1% 1 ML SYRINGE. ONE ×2 (06:39→20:47)
[2016-11-19] MEDS ORDERED: VANCOMYCIN 10GM VIAL for OR. ONE (06:57)
[2016-11-19] MEDS ORDERED: PAPAVERINE 60 MG/2 ML VIAL FOR OR ONLY. ONE (06:57)
[2016-11-19] MEDS ORDERED: SURGICEL HEMOSTAT 4X8 EACH. ONE (06:57)
[2016-11-19] MEDS ORDERED: 0.9 % SODIUM CHLORIDE 50 ML VIAL. IJ ONE (06:58)
[2016-11-19] MEDS ORDERED: VANCOMYCIN 1GM IVPB FOR OMNI. ONE (07:00)
[2016-11-19] MEDS ORDERED: VANCOMYCIN 1GM IVPB FOR OMNI 250 ML ONE (07:07)
[2016-11-19] MEDS: PANTOPRAZOLE 40 MG TABLET.DR. PO SCH (07:30)
[2016-11-19] MEDS: IV RINGERS,LACTATED 1000ML 1,000 ML IV SCH ×3 (07:36→20:50)
--- NOTE | 2016-11-19 07:50 | RAD ---
APPROVED REPORT Patient Location: IN-PATIENT Laterality:Bilateral Indications lt facial tingling now resolved pre-op CABG Doppler Spectral Velocity Analysis Right Left pCCA 63/10 cm/spCCA 119/32 cm/s mCCA 69/17 cm/smCCA 120/25 cm/s dCCA 80/19 cm/sdCCA 81/19 cm/s ECA 125/ cm/sECA 127/ cm/s pICA 74/24 cm/spICA 104/30 cm/s Odalys 76/24 cm/smICA 87/28 cm/s dICA 67/22 cm/sdICA 73/23 cm/s Vert. 73/ cm/sVert. 101/ cm/s ICA/CCA 0.95ICA/CCA 0.87 Findings Khan scale images demonstrate mild atherosclerotic plaque at the bifurcations. No significant high gr rafia disease is noted. Normal spectral waveforms and color doppler is noted in the ICA/CCA with normal ratios. Antegrade vertebral velocities are noted. Critical Notification Critical Value: No <Conclusion> No significant carotid disease.
--- NOTE | 2016-11-19 07:54 | RAD ---
APPROVED REPORT Patient Location: IN-PATIENT Indications pre op CABG Vein Measurements Great Saphenous Small Saphenous RightLeft RightLeft Saph-Fem. Junction 4.50mm3.60mmProximal 2.00mm1.20mm Mid Thigh 3.60mm3.90mmMid 1.90mm1.70mm Distal Thigh 2.90mm3.10mmDistal 2.50mm2.10mm Proximal Calf 2.60mm2.10mm Mid Calf 2.80mm2.70mm Distal Calf 2.10mm2.10mm Findings The right great saphenous vein is robust with above dimensions throughout its course and is fully com pressible. The right lesser saphenous vein is smaller in the mid segment and likey not a good moon te for bypass. The left greater saphenous vein is robust above the knee and appears to be approximately 2.1 mm near the popliteal fossa. The left lesser saphenous vein is smaller again with average dimensions of appro ximately 1.7mm. Critical Notification Critical Value: No <Conclusion> Adequate bilateral great saphenous veins for bypass conduit. Lesser saphenous veins bilaterally appear less robust but patent.
[2016-11-19] MEDS ORDERED: VANCOMYCIN 1GM IVPB FOR OMNI 250 ML IV SCH (08:00)
[2016-11-19] MEDS: ASPIRIN 300 MG SUPP.RECT ONE ×2 (08:42→13:06)
[2016-11-19] MEDS ORDERED: GLYCOPYRROLATE 1 MG/5 ML VIAL. ONE (08:51)
[2016-11-19] MEDS: DOCUSATE SODIUM 100 MG CAPSULE. PO SCH (09:00)
[2016-11-19] MEDS ORDERED: VANCOMYCIN 1 GM in IV NORMAL SALINE 500ML BAG 500 ML IV ONE (09:00)
[2016-11-19] MEDS ORDERED: MIDAZOLAM HCL/PF 5 MG/5 ML VIAL. ONE (09:25)
[2016-11-19] MEDS ORDERED: PROTAMINE 50 MG/5 ML VIAL. IV ONE (11:50)
[2016-11-19] MEDS ORDERED: PROTAMINE 250 MG/25 ML VIAL IV ONE ×2 (11:50→11:57)
[2016-11-19] MEDS ORDERED: CALCIUM CHLORIDE 1,000 MG/10 ML DISP.SYRIN IV ONE (12:26)
[2016-11-19] MEDS ORDERED: MAGNESIUM SULFATE 5 GM/10 ML VIAL. ONE (12:26)
[2016-11-19] MEDS ORDERED: HEPARIN 30,000 UNIT/30 ML VIAL. ONE (12:26)
[2016-11-19] MEDS ORDERED: ALBUMIN HUMAN 25% 100 ML IV ONE (12:26)
[2016-11-19] MEDS ORDERED: MANNITOL 25% 12.5 G/50 ML VIAL FOR OR. ONE (12:26)
[2016-11-19 13:15] LABS: HEMATOCRIT 32.8 % (36.0-47.0); HEMOGLOBIN 10.8 g/dL (12.0-15.5)
[2016-11-19] MEDS ORDERED: BISACODYL 10 MG SUPP.RECT. PR PRN (13:15)
[2016-11-19] MEDS ORDERED: 0.9 % SODIUM CHLORIDE 10 ML DISP.SYRIN. IV PRN (13:15)
[2016-11-19] MEDS ORDERED: ACETAMINOPHEN 650 MG SUPP.RECT. PR PRN (13:15)
[2016-11-19] MEDS ORDERED: MEPERIDINE PF 25 MG/ML VIAL. IV PRN (13:15)
[2016-11-19] MEDS ORDERED: HYDROCODONE/APAP 5/325MG TABLET. PO PRN (13:15)
[2016-11-19] MEDS ORDERED: PROPOFOL 100 ML IV PRN (13:15)
[2016-11-19] MEDS ORDERED: INSULIN REGULAR VIAL 150 UNIT in 0.9 % SODIUM CHLORIDE 150ML 150 ML IV PRN (13:15)
[2016-11-19] MEDS ORDERED: ELECTROLYTE (ICU) PROTOCOL. MC PRN (13:15)
[2016-11-19] MEDS ORDERED: PHENYLEPHRINE INJ 20 MG in IV NORMAL SALINE 250ML 250 ML IV PRN ×2 (13:15→16:15)
[2016-11-19] MEDS ORDERED: CLEVIDIPINE BUTYRATE 100 ML IV PRN (13:15)
[2016-11-19] MEDS ORDERED: KCL PER PROTOCOL MC PRN (13:15)
[2016-11-19] MEDS ORDERED: ONDANSETRON PF 4 MG/2 ML VIAL. IV PRN (13:15)
[2016-11-19] MEDS ORDERED: PROCHLORPERAZINE 10 MG/2 ML VIAL. IV PRN (13:15)
[2016-11-19] MEDS ORDERED: MAGNESIUM SULFATE 1GM 100 ML IV PRN (13:15)
[2016-11-19] MEDS ORDERED: NITROGLYCERIN PREMIX 250 ML IV PRN (13:15)
[2016-11-19] MEDS ORDERED: DEXTROSE 50% 25 GM / 50ML DISP.SYRIN. IV PRN (13:15)
[2016-11-19 13:16] LABS: WHITE BLOOD COUNT 8.7 x10^3/uL (4.0-11.0)
--- NOTE | 2016-11-19 13:17 | PDOC ---
BRIEF OPERATIVE NOTE Date: Nov 19, 2016 Pre-Op Diagnosis Non-ST elevation myocardial infarction Left main stem coronary artery disease Post-Op Diagnosis Non-ST elevation myocardial infarction Left main stem coronary artery disease Procedure Performed Coronary artery bypass grafting x 2 (GUZMÁN to LAD, SVG to OM) Endoscopic left greater saphenous vein harvesting Surgeon David Champagne MD Chipper Feeder Medina Buitrago, [employer] MAK[employer] HELPER Jennifer Helms [employer]ANDY MAKER HELPER Anesthesiologist Dr Barrett Anesthesia Type: General Blood Loss Cellsaver IV Fluid Cellsaver: 465 mls Crystalloid: 1400 mls Urine Output 1075 mls Specimens Obtained None Findings Moderate sized1.5-2mm LAD Modeare sized 1.5-2mm OM Small GUZMÁN Normal LV function Complications None Additional Remarks Cardiopulmonary bypass time: 81 min X-clamp time: 49 minutes DAVID CHAMPAGNE MD Nov 19, 2016 13:17
--- NOTE | 2016-11-19 13:22 | PDOC4 ---
Operative Note Operative Note Date Nov 19, 2016 Preoperative diagnosis Non-ST elevation myocardial infarction Left main stem coronary artery disease Postoperative diagnosis Non-ST elevation myocardial infarction Left main stem coronary artery disease Procedure Coronary artery bypass grafting x 2 (left internal mammary artery to left anterior descending coronary artery, saphenous vein graft to obtuse marginal coronary artery) Endoscopic left greater saphenous vein harvesting Surgeon David Champagne MD Sheet Turner Medina Buitrago, DELICIA Helms HE[employer] SAFETY ENGINEER Anesthesiologist Dr Barrett Anesthesia General Blood loss Cellsaver IV fluids Cellsaver: 465 mls Crystalloid: 1400 mls Urine output 1075 mls Specimens obtained None Findings Moderate sized1.5-2mm LAD Modeare sized 1.5-2mm OM Small GUZMÁN Normal LV function Complications None Additional Remarks Cardiopulmonary bypass time: 81 min X-clamp time: 49 minutes Indication Ms Ellington is a pleasant 66-year-old female who presented to [facility] with acute onset of chest pain. She described the pain as heaviness/ pressure. It was associated with shortness of breath, diaphoresis, tingling in her face, jaw and neck pain, and left arm aching. Denied palpitations. Relieved with medications in ED. No EKG changes, but troponin peaked at 1,7. She was transferred to [facility]. She subsequently had a coronary angiogram today which demonstrated 70-80% left main disease. There is a 40-50% stenosis in the proximal mid LAD. The left circumflex and RCA are without any disease. Her left ventricular function is normal. Owing to her significant left main disease a CABG was indicated. The risks, benefits and limitations of the operation were explained to the patient and the patient's family. She agreed to proceed and informed consent was obtained. Operation After appropriate identification the patient was brought to the operating room and placed supine on the operating table. Anesthesia was induced by the anesthesiologist and the airway was secured with an endotracheal tube. Monitoring lines were placed without difficulty. Antibiotics were delivered and the patient was preped and draped in the usual standard sterile surgical fashion. A timeout was then performed. A median sternotomy was performed and the internal mammary artery was harvested. Simultaneously the left greater saphenous vein was harvested endoscopically. The vein conduit was of good caliber but the GUZMÁN was relatively small especially considering her size. The pericardium was incised. The patient was heparinized. Cardiopulmonary bypass was established through the ascending aorta and the right atrium. The patient was cooled to 33. Myocardial protection was achieved with antegrade blood cardioplegia. The cross -clamp was applied and diastolic arrest was achieved. Intermittent dosages of cardioplegia were given. Grafts: Saphenous vein graft to obtuse marginal coronary artery, end to side anastomosis with 7-0 Prolene.Moderate sized 1.5-2 mm vessel. Left internal mammary artery to distal left anterior descending coronary artery, end to side anastomosis with 7-0 Prolene. Moderate sized 1.5-2 mm vessel, but small GUZMÁN. The cross-clamp was removed. The heart was allowed to rewarm and reperfuse. A side biting clamp was then applied to the ascending aorta. A proximal anastomosis was performed using a running 6-0 Prolene suture. The grafts were de -aired. I brought the marginal grafts anterior to the pulmonary artery and posterior to the GUZMÁN. Atrial and ventricular pacing wires were placed. The patient recovered normal sinus rhythm. She was from cardiopulmonary bypass without inotropic support. Heparin was reversed with protamine. An angled 32 [place] chest tube was placed in the left pleural space, a 32Fr angled in the posterior pericardium and a 32 straight in the anterior pericardium. Hemostasis was achieved and confirmed. The sternotomy was closed with #7 steel wires. The incision was closed with a layer of 0 Vicryl followed by 2-0 Vicryl and then 4-0 Monocryl for the epidermis. A sterile dressing was applied. The instrument, sponge and needle counts were correct. The patient was then transferred to the ICU in stable condition. The total cardiopulmonary bypass time was 81 minutes. The total cross-clamp time was 49 minutes. DAVID CHAMPAGNE MD Nov 19, 2016 13:22
[2016-11-19 13:25] LABS: INR 1.4 (0.8-1.1)
[2016-11-19 13:30] LABS: PROTHROMBIN TIME PATIENT 16.4 SEC (11.7-14.0)
[2016-11-19 13:45] LABS: ART BE ISTAT 0 mmol/L (0-3); ART GLUC ISTAT 111 mg/dL (70-99); ART HCO3 ISTAT 25 mmol/L (21-28); ART HCT ISTAT 30 % (36-40); ART HGB ISTAT 10.2 g/dL (12-15); ART ION CA ISTAT 1.46 mmol/L (1.13-1.32); ART K ISTAT 3.8 mmol/L (3.5-5.0); ART NA ISTAT 140 mmol/L (135-145); ART PCO2 ISTAT 38 mmHg (35-45); ART PH ISTAT 7.42 (7.35-7.45); ART PO2 ISTAT 355 mmHg (75-100); ART SAT O2 SAT 100 % (95-99); ART TCO2 ISTAT 26 mmol/L (21-32); TOSPEC ART
[2016-11-19 13:45] LABS: ART BE ISTAT 2 mmol/L (0-3); ART GLUC ISTAT 127 mg/dL (70-99); ART HCO3 ISTAT 27 mmol/L (21-28); ART HCT ISTAT 24 % (36-40); ART HGB ISTAT 8.2 g/dL (12-15); ART ION CA ISTAT 1.84 mmol/L (1.13-1.32); ART K ISTAT 4.5 mmol/L (3.5-5.0); ART NA ISTAT 137 mmol/L (135-145); ART PCO2 ISTAT 43 mmHg (35-45); ART PO2 ISTAT 323 mmHg (75-100); ART SAT O2 SAT 100 % (95-99); ART TCO2 ISTAT 28 mmol/L (21-32); TOSPEC ART
[2016-11-19 13:45] LABS: ART BE ISTAT 1 mmol/L (0-3); ART GLUC ISTAT 110 mg/dL (70-99); ART HCO3 ISTAT 26 mmol/L (21-28); ART HCT ISTAT 32 % (36-40); ART HGB ISTAT 10.9 g/dL (12-15); ART ION CA ISTAT 1.15 mmol/L (1.13-1.32); ART K ISTAT 3.7 mmol/L (3.5-5.0); ART NA ISTAT 141 mmol/L (135-145); ART PCO2 ISTAT 39 mmHg (35-45); ART PH ISTAT 7.43 (7.35-7.45); ART PO2 ISTAT 242 mmHg (75-100); ART SAT O2 SAT 100 % (95-99); ART TCO2 ISTAT 27 mmol/L (21-32); TOSPEC ART
[2016-11-19 13:45] LABS: ART BE ISTAT 1 mmol/L (0-3); ART GLUC ISTAT 122 mg/dL (70-99); ART HCO3 ISTAT 24 mmol/L (21-28); ART HCT ISTAT 28 % (36-40); ART HGB ISTAT 9.5 g/dL (12-15); ART ION CA ISTAT 0.99 mmol/L (1.13-1.32); ART K ISTAT 4.8 mmol/L (3.5-5.0); ART NA ISTAT 139 mmol/L (135-145); ART PCO2 ISTAT 32 mmHg (35-45); ART PH ISTAT 7.48 (7.35-7.45); ART PO2 ISTAT 345 mmHg (75-100); ART SAT O2 SAT 100 % (95-99); ART TCO2 ISTAT 25 mmol/L (21-32); TOSPEC ART
[2016-11-19 13:45] LABS: ART BE ISTAT 2 mmol/L (0-3); ART GLUC ISTAT 120 mg/dL (70-99); ART HCO3 ISTAT 26 mmol/L (21-28); ART HCT ISTAT 26 % (36-40); ART HGB ISTAT 8.8 g/dL (12-15); ART NA ISTAT 138 mmol/L (135-145); ART PCO2 ISTAT 37 mmHg (35-45); ART PH ISTAT 7.45 (7.35-7.45); ART PO2 ISTAT 394 mmHg (75-100); ART SAT O2 SAT 100 % (95-99); ART TCO2 ISTAT 27 mmol/L (21-32); TOSPEC ART
[2016-11-19 13:45] LABS: ART BE ISTAT 2 mmol/L (0-3); ART GLUC ISTAT 114 mg/dL (70-99); ART HCO3 ISTAT 26 mmol/L (21-28); ART HCT ISTAT 26 % (36-40); ART HGB ISTAT 8.8 g/dL (12-15); ART ION CA ISTAT 1.04 mmol/L (1.13-1.32); ART K ISTAT 4.5 mmol/L (3.5-5.0); ART NA ISTAT 139 mmol/L (135-145); ART PCO2 ISTAT 36 mmHg (35-45); ART PH ISTAT 7.46 (7.35-7.45); ART PO2 ISTAT 295 mmHg (75-100); ART SAT O2 SAT 100 % (95-99); ART TCO2 ISTAT 27 mmol/L (21-32); TOSPEC ART
[2016-11-19 13:52] LABS: HCO3 ABG 23 mmol/L (21-28); PCO2 ABG 37 mmHg (35-46); PO2 ABG 101 mmHg (65-108); SAT O2 ABG 97 % (92-99)
[2016-11-19 13:53] LABS: FIO2 ABG 100
[2016-11-19 14:00] LABS: HEMATOCRIT 35.5 % (36.0-47.0); HEMOGLOBIN 11.9 g/dL (12.0-15.5); RED BLOOD COUNT 3.91 x10^6/uL (3.50-5.40); RED CELL DISTRIBUTION WIDTH 13.3 % (11.5-14.5); WHITE BLOOD COUNT 8.9 x10^3/uL (4.0-11.0)
[2016-11-19 14:09] LABS: INR 1.4 (0.8-1.1); PROTHROMBIN TIME PATIENT 16.1 SEC (11.7-14.0)
[2016-11-19 14:11] LABS: CALCIUM 9.4 mg/dL (8.5-10.1); CREATININE 0.9 mg/dL (0.6-1.0); GFR 62.6; MAGNESIUM 2.6 mg/dL (1.8-2.4)
--- NOTE | 2016-11-19 14:27 | EKG ---
[facility] [address] [place] [address] Test Date: 2016-11-19 Test Time: 14:26:34 Pat Name: DAVID ALEMAN Department: Room: 112 1 Gender: F [employer] I Manager: : [id number] Requested By: DAVID CHAMPAGNE Order Number: [id number] Reading MD: David Hawkins Measurements Intervals [place] Rate: 72 P: 31 AK: 190 QRS: 85 QRSD: 110 T: 46 QT: 386 QTc: 429 Interpretive Statements SINUS RHYTHM RBBB Electronically Signed On 11-19-2016 15:08:56 CDT by David Hawkins
--- NOTE | 2016-11-19 14:59 | PDOC ---
PROGRESS NOTES Chief Complaint Chief Complaint chest pain NSTEMI GERD CAD Hypokalemia History of Present Illness History of Present Illness cath showed 80% Left main, CABG today, post op care cont current other Vitals Vitals Vital Signs Date Time Temp Pulse Resp B/P Pulse Ox O2 Delivery O2 Flow Rate FiO2 11/19/16 06:51 98.4 68 18 132/73 91 Room Air 98.4 11/19/16 03:50 2.0 Physical Exam Physical Exam in ICU post op General: mild distress, Other Heart: Regular rate, Normal S1, Normal S2 Lungs: Clear Abdomen: Soft, No tenderness Extremities: No clubbing, No edema, Normal pulses Skin: No breakdown Labs LABS Laboratory Tests Test 11/19/16 04:10 11/19/16 04:19 11/19/16 08:37 11/19/16 08:40 White Blood Count 6.8x10^3/uL (4.0-11.0) Red Blood Count 4.30x10^6/uL (3.50-5.40) Hemoglobin 12.9g/dL (12.0-15.5) Hematocrit 38.7% (36.0-47.0) Mean Corpuscular Volume 90fL (79-100) Mean Corpuscular Hemoglobin 30pg (25-35) Mean Corpuscular Hemoglobin Concent 33g/dL (31-37) Red Cell Distribution Width 13.5% (11.5-14.5) Platelet Count 206x10^3/uL (140-400) Neutrophils (%) (Auto) 64% (31-73) Lymphocytes (%) (Auto) 26% (24-48) Monocytes (%) (Auto) 8% (0-9) Eosinophils (%) (Auto) 1% (0-3) Basophils (%) (Auto) 1% (0-3) Neutrophils # (Auto) 4.3x10^3uL (1.8-7.7) Lymphocytes # (Auto) 1.8x10^3/uL (1.0-4.8) Monocytes # (Auto) 0.6x10^3/uL (0.0-1.1) Eosinophils # (Auto) 0.1x10^3/uL (0.0-0.7) Basophils # (Auto) 0.0x10^3/uL (0.0-0.2) Sodium Level 138mmol/L (136-145) Potassium Level 3.7mmol/L (3.5-5.1) Chloride Level 106mmol/L (98-107) Carbon Dioxide Level 30mmol/L (21-32) Anion Gap 2 (6-14) Blood Urea Nitrogen 9mg/dL (7-20) Creatinine 1.0mg/dL (0.6-1.0) Estimated GFR (Cockcroft-Gault) 55.5 BUN/Creatinine Ratio 9 (6-20) Glucose Level 92mg/dL (70-99) 110mg/dL (70-99) Calcium Level 8.0mg/dL (8.5-10.1) Total Bilirubin 0.3mg/dL (0.2-1.0) Aspartate Amino Transf (AST/SGOT) 28U/L (15-37) Alanine Aminotransferase (ALT/SGPT) 30U/L (14-59) Alkaline Phosphatase 42U/L (46-116) Total Protein 5.8g/dL (6.4-8.2) Albumin 2.9g/dL (3.4-5.0) Albumin/Globulin Ratio 1.0 (1.0-1.7) Glucose (Fingerstick) 83mg/dL (70-99) Bedside Hemoglobin (Calculated) 10.9g/dL (12-15) Bedside Hematocrit 32% (36-40) Bedside Arterial pH 7.43 (7.35-7.45) Bedside Arterial pCO2 39mmHg (35-45) Bedside Arterial pO2 242mmHg (75-100) Bedside Arterial HCO3 26mmol/L (21-28) Bedside Arterial Total CO2 27mmol/L (21-32) Arterial Bld O2 Saturation (Measur) 100% (95-99) Bedside Arterial Blood Base Excess 1mmol/L (0-3) Bedside FiO2 100.0 Bedside Sodium 141mmol/L (135-145) Bedside Potassium 3.7mmol/L (3.5-5.0) Bedside Ionized Calcium (Margarita) 1.15mmol/L (1.13-1.32) Activated Clotting Time 114SEC (90-125) Test 11/19/16 09:53 11/19/16 10:55 11/19/16 11:00 11/19/16 11:28 Activated Clotting Time 466SEC (90-125) > 1000SEC (90-125) Bedside Hemoglobin (Calculated) 9.5g/dL (12-15) 8.8g/dL (12-15) Bedside Hematocrit 28% (36-40) 26% (36-40) Bedside Arterial pH 7.48 (7.35-7.45) 7.46 (7.35-7.45) Bedside Arterial pCO2 32mmHg (35-45) 36mmHg (35-45) Bedside Arterial pO2 345mmHg (75-100) 295mmHg (75-100) Bedside Arterial HCO3 24mmol/L (21-28) 26mmol/L (21-28) Bedside Arterial Total CO2 25mmol/L (21-32) 27mmol/L (21-32) Arterial Bld O2 Saturation (Measur) 100% (95-99) 100% (95-99) Bedside Arterial Blood Base Excess 1mmol/L (0-3) 2mmol/L (0-3) Bedside FiO2 70.0 70.0 Bedside Sodium 139mmol/L (135-145) 139mmol/L (135-145) Bedside Potassium 4.8mmol/L (3.5-5.0) 4.5mmol/L (3.5-5.0) Glucose Level 122mg/dL (70-99) 114mg/dL (70-99) Bedside Ionized Calcium (Margarita) 0.99mmol/L (1.13-1.32) 1.04mmol/L (1.13-1.32) Test 11/19/16 11:30 11/19/16 11:59 11/19/16 12:00 11/19/16 12:17 Activated Clotting Time 506SEC (90-125) 519SEC (90-125) Bedside Hemoglobin (Calculated) 8.2g/dL (12-15) 8.8g/dL (12-15) Bedside Hematocrit 24% (36-40) 26% (36-40) Bedside Arterial pH 7.40 (7.35-7.45) 7.45 (7.35-7.45) Bedside Arterial pCO2 43mmHg (35-45) 37mmHg (35-45) Bedside Arterial pO2 323mmHg (75-100) 394mmHg (75-100) Bedside Arterial HCO3 27mmol/L (21-28) 26mmol/L (21-28) Bedside Arterial Total CO2 28mmol/L (21-32) 27mmol/L (21-32) Arterial Bld O2 Saturation (Measur) 100% (95-99) 100% (95-99) Bedside Arterial Blood Base Excess 2mmol/L (0-3) 2mmol/L (0-3) Bedside FiO2 80.0 100.0 Bedside Sodium 137mmol/L (135-145) 138mmol/L (135-145) Bedside Potassium 4.5mmol/L (3.5-5.0) 4.0mmol/L (3.5-5.0) Glucose Level 127mg/dL (70-99) 120mg/dL (70-99) Bedside Ionized Calcium (Margarita) 1.84mmol/L (1.13-1.32) 1.70mmol/L (1.13-1.32) Test 11/19/16 12:19 11/19/16 13:00 11/19/16 13:01 11/19/16 13:30 Activated Clotting Time 114SEC (90-125) White Blood Count 8.7x10^3/uL (4.0-11.0) Hemoglobin 10.8g/dL (12.0-15.5) Hematocrit 32.8% (36.0-47.0) Platelet Count 128x10^3/uL (140-400) Prothrombin Time 16.4SEC (11.7-14.0) Prothromb Time International Ratio 1.4 (0.8-1.1) Activated Partial Thromboplast Time 33SEC (24-38) Fibrinogen 197mg/dL (200-440) Bedside Hemoglobin (Calculated) 10.2g/dL (12-15) Bedside Hematocrit 30% (36-40) Bedside Arterial pH 7.42 (7.35-7.45) Bedside Arterial pCO2 38mmHg (35-45) Bedside Arterial pO2 355mmHg (75-100) Bedside Arterial HCO3 25mmol/L (21-28) Bedside Arterial Total CO2 26mmol/L (21-32) Arterial Bld O2 Saturation (Measur) 100% (95-99) Bedside Arterial Blood Base Excess 0mmol/L (0-3) Bedside FiO2 100.0 Bedside Sodium 140mmol/L (135-145) Bedside Potassium 3.8mmol/L (3.5-5.0) Glucose Level 111mg/dL (70-99) Bedside Ionized Calcium (Margarita) 1.46mmol/L (1.13-1.32) O2 Saturation 97% (92-99) Arterial Blood pH 7.40 (7.35-7.45) Arterial Blood pCO2 at Patient Temp 37mmHg (35-46) Arterial Blood pO2 at Patient Temp 101mmHg (65-108) Arterial Blood HCO3 23mmol/L (21-28) Arterial Blood Base Excess -2mmol/L (-3-3) FiO2 100 Test 11/19/16 13:40 White Blood Count 8.9x10^3/uL (4.0-11.0) Red Blood Count 3.91x10^6/uL (3.50-5.40) Hemoglobin 11.9g/dL (12.0-15.5) Hematocrit 35.5% (36.0-47.0) Mean Corpuscular Volume 91fL (79-100) Mean Corpuscular Hemoglobin 31pg (25-35) Mean Corpuscular Hemoglobin Concent 34g/dL (31-37) Red Cell Distribution Width 13.3% (11.5-14.5) Platelet Count 143x10^3/uL (140-400) Prothrombin Time 16.1SEC (11.7-14.0) Prothromb Time International Ratio 1.4 (0.8-1.1) Activated Partial Thromboplast Time 31SEC (24-38) Sodium Level 141mmol/L (136-145) Potassium Level 4.0mmol/L (3.5-5.1) Chloride Level 110mmol/L (98-107) Carbon Dioxide Level 26mmol/L (21-32) Anion Gap 5 (6-14) Blood Urea Nitrogen 8mg/dL (7-20) Creatinine 0.9mg/dL (0.6-1.0) Estimated GFR (Cockcroft-Gault) 62.6 Glucose Level 118mg/dL (70-99) Calcium Level 9.4mg/dL (8.5-10.1) Magnesium Level 2.6mg/dL (1.8-2.4) Comment Review of Relevant I have reviewed the following items melva (where applicable) has been applied. Labs Laboratory Tests Test 11/17/16 17:45 11/17/16 23:45 11/18/16 05:55 11/18/16 14:10 Troponin I Quantitative 1.158ng/mL (0.000-0.055) 1.569ng/mL (0.000-0.055) 1.700ng/mL (0.000-0.055) White Blood Count 7.2x10^3/uL (4.0-11.0) Red Blood Count 4.44x10^6/uL (3.50-5.40) Hemoglobin 13.3g/dL (12.0-15.5) Hematocrit 39.2% (36.0-47.0) Mean Corpuscular Volume 88fL (79-100) Mean Corpuscular Hemoglobin 30pg (25-35) Mean Corpuscular Hemoglobin Concent 34g/dL (31-37) Red Cell Distribution Width 13.5% (11.5-14.5) Platelet Count 215x10^3/uL (140-400) Neutrophils (%) (Auto) 66% (31-73) Lymphocytes (%) (Auto) 23% (24-48) Monocytes (%) (Auto) 9% (0-9) Eosinophils (%) (Auto) 1% (0-3) Basophils (%) (Auto) 1% (0-3) Neutrophils # (Auto) 4.8x10^3uL (1.8-7.7) Lymphocytes # (Auto) 1.7x10^3/uL (1.0-4.8) Monocytes # (Auto) 0.6x10^3/uL (0.0-1.1) Eosinophils # (Auto) 0.1x10^3/uL (0.0-0.7) Basophils # (Auto) 0.0x10^3/uL (0.0-0.2) Prothrombin Time 13.1SEC (11.7-14.0) Prothromb Time International Ratio 1.1 (0.8-1.1) Activated Partial Thromboplast Time 29SEC (24-38) Test 11/19/16 04:10 11/19/16 04:19 11/19/16 08:37 11/19/16 08:40 White Blood Count 6.8x10^3/uL (4.0-11.0) Red Blood Count 4.30x10^6/uL (3.50-5.40) Hemoglobin 12.9g/dL (12.0-15.5) Hematocrit 38.7% (36.0-47.0) Mean Corpuscular Volume 90fL (79-100) Mean Corpuscular Hemoglobin 30pg (25-35) Mean Corpuscular Hemoglobin Concent 33g/dL (31-37) Red Cell Distribution Width 13.5% (11.5-14.5) Platelet Count 206x10^3/uL (140-400) Neutrophils (%) (Auto) 64% (31-73) Lymphocytes (%) (Auto) 26% (24-48) Monocytes (%) (Auto) 8% (0-9) Eosinophils (%) (Auto) 1% (0-3) Basophils (%) (Auto) 1% (0-3) Neutrophils # (Auto) 4.3x10^3uL (1.8-7.7) Lymphocytes # (Auto) 1.8x10^3/uL (1.0-4.8) Monocytes # (Auto) 0.6x10^3/uL (0.0-1.1) Eosinophils # (Auto) 0.1x10^3/uL (0.0-0.7) Basophils # (Auto) 0.0x10^3/uL (0.0-0.2) Sodium Level 138mmol/L (136-145) Potassium Level 3.7mmol/L (3.5-5.1) Chloride Level 106mmol/L (98-107) Carbon Dioxide Level 30mmol/L (21-32) Anion Gap 2 (6-14) Blood Urea Nitrogen 9mg/dL (7-20) Creatinine 1.0mg/dL (0.6-1.0) Estimated GFR (Cockcroft-Gault) 55.5 BUN/Creatinine Ratio 9 (6-20) Glucose Level 92mg/dL (70-99) 110mg/dL (70-99) Calcium Level 8.0mg/dL (8.5-10.1) Total Bilirubin 0.3mg/dL (0.2-1.0) Aspartate Amino Transf (AST/SGOT) 28U/L (15-37) Alanine Aminotransferase (ALT/SGPT) 30U/L (14-59) Alkaline Phosphatase 42U/L (46-116) Total Protein 5.8g/dL (6.4-8.2) Albumin 2.9g/dL (3.4-5.0) Albumin/Globulin Ratio 1.0 (1.0-1.7) Glucose (Fingerstick) 83mg/dL (70-99) Bedside Hemoglobin (Calculated) 10.9g/dL (12-15) Bedside Hematocrit 32% (36-40) Bedside Arterial pH 7.43 (7.35-7.45) Bedside Arterial pCO2 39mmHg (35-45) Bedside Arterial pO2 242mmHg (75-100) Bedside Arterial HCO3 26mmol/L (21-28) Bedside Arterial Total CO2 27mmol/L (21-32) Arterial Bld O2 Saturation (Measur) 100% (95-99) Bedside Arterial Blood Base Excess 1mmol/L (0-3) Bedside FiO2 100.0 Bedside Sodium 141mmol/L (135-145) Bedside Potassium 3.7mmol/L (3.5-5.0) Bedside Ionized Calcium (Margarita) 1.15mmol/L (1.13-1.32) Activated Clotting Time 114SEC (90-125) Test 11/19/16 09:53 11/19/16 10:55 11/19/16 11:00 11/19/16 11:28 Activated Clotting Time 466SEC (90-125) > 1000SEC (90-125) Bedside Hemoglobin (Calculated) 9.5g/dL (12-15) 8.8g/dL (12-15) Bedside Hematocrit 28% (36-40) 26% (36-40) Bedside Arterial pH 7.48 (7.35-7.45) 7.46 (7.35-7.45) Bedside Arterial pCO2 32mmHg (35-45) 36mmHg (35-45) Bedside Arterial pO2 345mmHg (75-100) 295mmHg (75-100) Bedside Arterial HCO3 24mmol/L (21-28) 26mmol/L (21-28) Bedside Arterial Total CO2 25mmol/L (21-32) 27mmol/L (21-32) Arterial Bld O2 Saturation (Measur) 100% (95-99) 100% (95-99) Bedside Arterial Blood Base Excess 1mmol/L (0-3) 2mmol/L (0-3) Bedside FiO2 70.0 70.0 Bedside Sodium 139mmol/L (135-145) 139mmol/L (135-145) Bedside Potassium 4.8mmol/L (3.5-5.0) 4.5mmol/L (3.5-5.0) Glucose Level 122mg/dL (70-99) 114mg/dL (70-99) Bedside Ionized Calcium (Margarita) 0.99mmol/L (1.13-1.32) 1.04mmol/L (1.13-1.32) Test 11/19/16 11:30 11/19/16 11:59 11/19/16 12:00 11/19/16 12:17 Activated Clotting Time 506SEC (90-125) 519SEC (90-125) Bedside Hemoglobin (Calculated) 8.2g/dL (12-15) 8.8g/dL (12-15) Bedside Hematocrit 24% (36-40) 26% (36-40) Bedside Arterial pH 7.40 (7.35-7.45) 7.45 (7.35-7.45) Bedside Arterial pCO2 43mmHg (35-45) 37mmHg (35-45) Bedside Arterial pO2 323mmHg (75-100) 394mmHg (75-100) Bedside Arterial HCO3 27mmol/L (21-28) 26mmol/L (21-28) Bedside Arterial Total CO2 28mmol/L (21-32) 27mmol/L (21-32) Arterial Bld O2 Saturation (Measur) 100% (95-99) 100% (95-99) Bedside Arterial Blood Base Excess 2mmol/L (0-3) 2mmol/L (0-3) Bedside FiO2 80.0 100.0 Bedside Sodium 137mmol/L (135-145) 138mmol/L (135-145) Bedside Potassium 4.5mmol/L (3.5-5.0) 4.0mmol/L (3.5-5.0) Glucose Level 127mg/dL (70-99) 120mg/dL (70-99) Bedside Ionized Calcium (Margarita) 1.84mmol/L (1.13-1.32) 1.70mmol/L (1.13-1.32) Test 11/19/16 12:19 11/19/16 13:00 11/19/16 13:01 11/19/16 13:30 Activated Clotting Time 114SEC (90-125) White Blood Count 8.7x10^3/uL (4.0-11.0) Hemoglobin 10.8g/dL (12.0-15.5) Hematocrit 32.8% (36.0-47.0) Platelet Count 128x10^3/uL (140-400) Prothrombin Time 16.4SEC (11.7-14.0) Prothromb Time International Ratio 1.4 (0.8-1.1) Activated Partial Thromboplast Time 33SEC (24-38) Fibrinogen 197mg/dL (200-440) Bedside Hemoglobin (Calculated) 10.2g/dL (12-15) Bedside Hematocrit 30% (36-40) Bedside Arterial pH 7.42 (7.35-7.45) Bedside Arterial pCO2 38mmHg (35-45) Bedside Arterial pO2 355mmHg (75-100) Bedside Arterial HCO3 25mmol/L (21-28) Bedside Arterial Total CO2 26mmol/L (21-32) Arterial Bld O2 Saturation (Measur) 100% (95-99) Bedside Arterial Blood Base Excess 0mmol/L (0-3) Bedside FiO2 100.0 Bedside Sodium 140mmol/L (135-145) Bedside Potassium 3.8mmol/L (3.5-5.0) Glucose Level 111mg/dL (70-99) Bedside Ionized Calcium (Margarita) 1.46mmol/L (1.13-1.32) O2 Saturation 97% (92-99) Arterial Blood pH 7.40 (7.35-7.45) Arterial Blood pCO2 at Patient Temp 37mmHg (35-46) Arterial Blood pO2 at Patient Temp 101mmHg (65-108) Arterial Blood HCO3 23mmol/L (21-28) Arterial Blood Base Excess -2mmol/L (-3-3) FiO2 100 Test 11/19/16 13:40 White Blood Count 8.9x10^3/uL (4.0-11.0) Red Blood Count 3.91x10^6/uL (3.50-5.40) Hemoglobin 11.9g/dL (12.0-15.5) Hematocrit 35.5% (36.0-47.0) Mean Corpuscular Volume 91fL (79-100) Mean Corpuscular Hemoglobin 31pg (25-35) Mean Corpuscular Hemoglobin Concent 34g/dL (31-37) Red Cell Distribution Width 13.3% (11.5-14.5) Platelet Count 143x10^3/uL (140-400) Prothrombin Time 16.1SEC (11.7-14.0) Prothromb Time International Ratio 1.4 (0.8-1.1) Activated Partial Thromboplast Time 31SEC (24-38) Sodium Level 141mmol/L (136-145) Potassium Level 4.0mmol/L (3.5-5.1) Chloride Level 110mmol/L (98-107) Carbon Dioxide Level 26mmol/L (21-32) Anion Gap 5 (6-14) Blood Urea Nitrogen 8mg/dL (7-20) Creatinine 0.9mg/dL (0.6-1.0) Estimated GFR (Cockcroft-Gault) 62.6 Glucose Level 118mg/dL (70-99) Calcium Level 9.4mg/dL (8.5-10.1) Magnesium Level 2.6mg/dL (1.8-2.4) Laboratory Tests Test 11/19/16 04:10 11/19/16 04:19 11/19/16 08:37 11/19/16 08:40 White Blood Count 6.8x10^3/uL (4.0-11.0) Red Blood Count 4.30x10^6/uL (3.50-5.40) Hemoglobin 12.9g/dL (12.0-15.5) Hematocrit 38.7% (36.0-47.0) Mean Corpuscular Volume 90fL (79-100) Mean Corpuscular Hemoglobin 30pg (25-35) Mean Corpuscular Hemoglobin Concent 33g/dL (31-37) Red Cell Distribution Width 13.5% (11.5-14.5) Platelet Count 206x10^3/uL (140-400) Neutrophils (%) (Auto) 64% (31-73) Lymphocytes (%) (Auto) 26% (24-48) Monocytes (%) (Auto) 8% (0-9) Eosinophils (%) (Auto) 1% (0-3) Basophils (%) (Auto) 1% (0-3) Neutrophils # (Auto) 4.3x10^3uL (1.8-7.7) Lymphocytes # (Auto) 1.8x10^3/uL (1.0-4.8) Monocytes # (Auto) 0.6x10^3/uL (0.0-1.1) Eosinophils # (Auto) 0.1x10^3/uL (0.0-0.7) Basophils # (Auto) 0.0x10^3/uL (0.0-0.2) Sodium Level 138mmol/L (136-145) Potassium Level 3.7mmol/L (3.5-5.1) Chloride Level 106mmol/L (98-107) Carbon Dioxide Level 30mmol/L (21-32) Anion Gap 2 (6-14) Blood Urea Nitrogen 9mg/dL (7-20) Creatinine 1.0mg/dL (0.6-1.0) Estimated GFR (Cockcroft-Gault) 55.5 BUN/Creatinine Ratio 9 (6-20) Glucose Level 92mg/dL (70-99) 110mg/dL (70-99) Calcium Level 8.0mg/dL (8.5-10.1) Total Bilirubin 0.3mg/dL (0.2-1.0) Aspartate Amino Transf (AST/SGOT) 28U/L (15-37) Alanine Aminotransferase (ALT/SGPT) 30U/L (14-59) Alkaline Phosphatase 42U/L (46-116) Total Protein 5.8g/dL (6.4-8.2) Albumin 2.9g/dL (3.4-5.0) Albumin/Globulin Ratio 1.0 (1.0-1.7) Glucose (Fingerstick) 83mg/dL (70-99) Bedside Hemoglobin (Calculated) 10.9g/dL (12-15) Bedside Hematocrit 32% (36-40) Bedside Arterial pH 7.43 (7.35-7.45) Bedside Arterial pCO2 39mmHg (35-45) Bedside Arterial pO2 242mmHg (75-100) Bedside Arterial HCO3 26mmol/L (21-28) Bedside Arterial Total CO2 27mmol/L (21-32) Arterial Bld O2 Saturation (Measur) 100% (95-99) Bedside Arterial Blood Base Excess 1mmol/L (0-3) Bedside FiO2 100.0 Bedside Sodium 141mmol/L (135-145) Bedside Potassium 3.7mmol/L (3.5-5.0) Bedside Ionized Calcium (Margarita) 1.15mmol/L (1.13-1.32) Activated Clotting Time 114SEC (90-125) Test 11/19/16 09:53 11/19/16 10:55 11/19/16 11:00 11/19/16 11:28 Activated Clotting Time 466SEC (90-125) > 1000SEC (90-125) Bedside Hemoglobin (Calculated) 9.5g/dL (12-15) 8.8g/dL (12-15) Bedside Hematocrit 28% (36-40) 26% (36-40) Bedside Arterial pH 7.48 (7.35-7.45) 7.46 (7.35-7.45) Bedside Arterial pCO2 32mmHg (35-45) 36mmHg (35-45) Bedside Arterial pO2 345mmHg (75-100) 295mmHg (75-100) Bedside Arterial HCO3 24mmol/L (21-28) 26mmol/L (21-28) Bedside Arterial Total CO2 25mmol/L (21-32) 27mmol/L (21-32) Arterial Bld O2 Saturation (Measur) 100% (95-99) 100% (95-99) Bedside Arterial Blood Base Excess 1mmol/L (0-3) 2mmol/L (0-3) Bedside FiO2 70.0 70.0 Bedside Sodium 139mmol/L (135-145) 139mmol/L (135-145) Bedside Potassium 4.8mmol/L (3.5-5.0) 4.5mmol/L (3.5-5.0) Glucose Level 122mg/dL (70-99) 114mg/dL (70-99) Bedside Ionized Calcium (Margarita) 0.99mmol/L (1.13-1.32) 1.04mmol/L (1.13-1.32) Test 11/19/16 11:30 11/19/16 11:59 11/19/16 12:00 11/19/16 12:17 Activated Clotting Time 506SEC (90-125) 519SEC (90-125) Bedside Hemoglobin (Calculated) 8.2g/dL (12-15) 8.8g/dL (12-15) Bedside Hematocrit 24% (36-40) 26% (36-40) Bedside Arterial pH 7.40 (7.35-7.45) 7.45 (7.35-7.45) Bedside Arterial pCO2 43mmHg (35-45) 37mmHg (35-45) Bedside Arterial pO2 323mmHg (75-100) 394mmHg (75-100) Bedside Arterial HCO3 27mmol/L (21-28) 26mmol/L (21-28) Bedside Arterial Total CO2 28mmol/L (21-32) 27mmol/L (21-32) Arterial Bld O2 Saturation (Measur) 100% (95-99) 100% (95-99) Bedside Arterial Blood Base Excess 2mmol/L (0-3) 2mmol/L (0-3) Bedside FiO2 80.0 100.0 Bedside Sodium 137mmol/L (135-145) 138mmol/L (135-145) Bedside Potassium 4.5mmol/L (3.5-5.0) 4.0mmol/L (3.5-5.0) Glucose Level 127mg/dL (70-99) 120mg/dL (70-99) Bedside Ionized Calcium (Margarita) 1.84mmol/L (1.13-1.32) 1.70mmol/L (1.13-1.32) Test 11/19/16 12:19 11/19/16 13:00 11/19/16 13:01 11/19/16 13:30 Activated Clotting Time 114SEC (90-125) White Blood Count 8.7x10^3/uL (4.0-11.0) Hemoglobin 10.8g/dL (12.0-15.5) Hematocrit 32.8% (36.0-47.0) Platelet Count 128x10^3/uL (140-400) Prothrombin Time 16.4SEC (11.7-14.0) Prothromb Time International Ratio 1.4 (0.8-1.1) Activated Partial Thromboplast Time 33SEC (24-38) Fibrinogen 197mg/dL (200-440) Bedside Hemoglobin (Calculated) 10.2g/dL (12-15) Bedside Hematocrit 30% (36-40) Bedside Arterial pH 7.42 (7.35-7.45) Bedside Arterial pCO2 38mmHg (35-45) Bedside Arterial pO2 355mmHg (75-100) Bedside Arterial HCO3 25mmol/L (21-28) Bedside Arterial Total CO2 26mmol/L (21-32) Arterial Bld O2 Saturation (Measur) 100% (95-99) Bedside Arterial Blood Base Excess 0mmol/L (0-3) Bedside FiO2 100.0 Bedside Sodium 140mmol/L (135-145) Bedside Potassium 3.8mmol/L (3.5-5.0) Glucose Level 111mg/dL (70-99) Bedside Ionized Calcium (Margarita) 1.46mmol/L (1.13-1.32) O2 Saturation 97% (92-99) Arterial Blood pH 7.40 (7.35-7.45) Arterial Blood pCO2 at Patient Temp 37mmHg (35-46) Arterial Blood pO2 at Patient Temp 101mmHg (65-108) Arterial Blood HCO3 23mmol/L (21-28) Arterial Blood Base Excess -2mmol/L (-3-3) FiO2 100 Test 11/19/16 13:40 White Blood Count 8.9x10^3/uL (4.0-11.0) Red Blood Count 3.91x10^6/uL (3.50-5.40) Hemoglobin 11.9g/dL (12.0-15.5) Hematocrit 35.5% (36.0-47.0) Mean Corpuscular Volume 91fL (79-100) Mean Corpuscular Hemoglobin 31pg (25-35) Mean Corpuscular Hemoglobin Concent 34g/dL (31-37) Red Cell Distribution Width 13.3% (11.5-14.5) Platelet Count 143x10^3/uL (140-400) Prothrombin Time 16.1SEC (11.7-14.0) Prothromb Time International Ratio 1.4 (0.8-1.1) Activated Partial Thromboplast Time 31SEC (24-38) Sodium Level 141mmol/L (136-145) Potassium Level 4.0mmol/L (3.5-5.1) Chloride Level 110mmol/L (98-107) Carbon Dioxide Level 26mmol/L (21-32) Anion Gap 5 (6-14) Blood Urea Nitrogen 8mg/dL (7-20) Creatinine 0.9mg/dL (0.6-1.0) Estimated GFR (Cockcroft-Gault) 62.6 Glucose Level 118mg/dL (70-99) Calcium Level 9.4mg/dL (8.5-10.1) Magnesium Level 2.6mg/dL (1.8-2.4) Medications Current Medications Acetaminophen (Tylenol) 650 mg PRN Q6HRS PRN PO PAIN Last administered on 12:33; Start 11/17/16 at 10:00 Ondansetron HCl (Zofran) 4 mg PRN Q6HRS PRN IV NAUSEA/VOMITING Last administered on 11/18/16 14:01; Start 11/17/16 at 10:15; Stop 11/19/16 at 08:57 ; Status DC Pantoprazole Sodium (Protonix) 40 mg DAILYAC PO Last administered on 11/18/16 12:30; Start 11/18/16 at 07:30 Regadenoson (Lexiscan) 0.4 mg 1X ONCE IV Last administered on 11/17/16 11:45 ; Start 11/17/16 at 11:15; Stop 11/17/16 at 11:16; Status DC Aspirin (Ecotrin) 325 mg 1X ONCE PO Last administered on 11/18/16 00:06; Start 11/17/16 at 23:30; Stop 11/17/16 at 23:31; Status DC Iohexol 100 ml 100 ml STK-MED ONCE .ROUTE ; Start 11/18/16 at 10:16; Stop at 10:17; Status DC Heparin Sodium/ Sodium Chloride 1,000 ml @ As Directed STK-MED ONCE .ROUTE ; Start 11/18/16 at 10:16; Stop 11/18/16 at 10:17; Status DC Lidocaine HCl 20 ml STK-MED ONCE .ROUTE ; Start 11/18/16 at 10:16; Stop at 10:17; Status DC Nitroglycerin (Nitroglycerin) 200 mcg STK-MED ONCE .ROUTE ; Start 11/18/16 at 10 :57; Stop 11/18/16 at 10:58; Status DC Verapamil HCl (Verapamil) 5 mg STK-MED ONCE .ROUTE ; Start 11/18/16 at 10:57; Stop 11/18/16 at 10:58; Status DC Midazolam HCl (Versed) 5 mg STK-MED ONCE .ROUTE ; Start 11/18/16 at 10:57; Stop 11/18/16 at 10:58; Status DC Fentanyl Citrate (Fentanyl 5ml Vial) 250 mcg STK-MED ONCE .ROUTE ; Start at 10:57; Stop 11/18/16 at 10:58; Status DC Heparin Sodium (Porcine) (Heparin Sodium) 10,000 unit STK-MED ONCE .ROUTE ; Start 11/18/16 at 10:57; Stop 11/18/16 at 10:58; Status DC Nitroglycerin (Nitroglycerin) 200 mcg 1X ONCE IART Last administered on 11:34; Start 11/18/16 at 11:30; Stop 11/18/16 at 11:31; Status DC Verapamil HCl (Verapamil) 2.5 mg 1X ONCE IART Last administered on 11/18/16 11:34; Start 11/18/16 at 11:30; Stop 11/18/16 at 11:31; Status DC Heparin Sodium (Porcine) (Heparin Sodium) 2,500 unit 1X ONCE IART Last administered on 11/18/16 11:41; Start 11/18/16 at 11:30; Stop 11/18/16 at 11:31 ; Status DC Heparin Sodium/ Sodium Chloride 1,000 unit 1X ONCE IART Last administered on 11:34; Start 11/18/16 at 11:30; Stop 11/18/16 at 11:31; Status DC Midazolam HCl (Versed) 5 mg 1X ONCE IV Last administered on 11/18/16 11:33; Start 11/18/16 at 11:30; Stop 11/18/16 at 11:31; Status DC Fentanyl Citrate (Fentanyl 5ml Vial) 250 mcg 1X ONCE IV Last administered on 11:33; Start 11/18/16 at 11:30; Stop 11/18/16 at 11:31; Status DC Iohexol (Omnipaque 300 Mg/ml) 100 ml 1X ONCE IART Last administered on 11:34; Start 11/18/16 at 11:30; Stop 11/18/16 at 11:31; Status DC Lidocaine HCl 20 ml 20 ml 1X ONCE IJ Last administered on 11/18/16 11:34; Start 11/18/16 at 11:30; Stop 11/18/16 at 11:31; Status DC Sodium Chloride (Iv Sodium Chloride 0.45%) 1,000 ml @ 60 mls/hr [id number] IV Last administered on 11/19/16 04:33; Start 11/18/16 at 11:54 Nitroglycerin 0.4 mg 0.4 mg PRN Q5MIN PRN SL CHEST PAIN; Start 11/18/16 at 12: 00 Magnesium Sulfate/ Dextrose (Magnesium Sulfate PREMIX 2GM) 50 ml @ 25 mls/hr 1X ONCE IV Last administered on 11/18/16 16:14; Start 11/18/16 at 14:00; Stop 11/18/16 at 15:59; Status DC Potassium Chloride (Klor-Con) 20 meq 1X ONCE PO ; Start 11/18/16 at 13:45; Stop 11/18/16 at 13:46; Status DC Ondansetron HCl (Zofran) 4 mg PRN Q8HRS PRN IV NAUSEA/VOMITING; Start 11/18/16 at 13:45 Docusate Sodium (Colace) 100 mg DAILY PO ; Start 11/18/16 at 14:00 Polyethylene Glycol (miraLAX PACKET) 17 gm PRN DAILY PRN PO CONSTIPATION; Start 11/18/16 at 13:45 Iohexol (Omnipaque 300 Mg/ml) 75 ml 1X ONCE IV ; Start 11/18/16 at 15:00; Stop 11/18/16 at 15:01; Status DC Info (Do NOT chart on this entry -- for MONITORING) 1 each PRN DAILY PRN MC SEE COMMENTS; Start 11/18/16 at 15:00; Stop 11/20/16 at 14:59 Prochlorperazine Edisylate 10 mg 10 mg 1X ONCE IV Last administered on t 15:45; Start 11/18/16 at 15:45; Stop 11/18/16 at 15:47; Status DC Potassium Chloride 70 meq/ Sodium Bicarbonate 12.5 meq/Lidocaine HCl 24 ml/ Parenteral Electrolytes 571.5 ml @ 571.5 mls/ hr 1X PERIOP ONCE IRR ; Start at 06:00; Stop 11/19/16 at 06:59; Status DC Potassium Chloride 15 meq/ Sodium Bicarbonate 12.5 meq/Parenteral Electrolytes 520 ml @ 520 mls/hr 1X PERIOP ONCE IRR ; Start 11/19/16 at 06:00; Stop at 06:59; Status DC Heparin Sodium (Porcine) 39923 unit/Lactated Ringer's 1,020 ml @ 1,020 mls/hr 1X PERIOP ONCE IRR Last administered on 11/19/16 08:42; Start 11/19/16 at 06: 00; Stop 11/19/16 at 06:59; Status DC Cefazolin Sodium/ Sodium Chloride (Ancef/Iv Sodium Chloride 0.9% 500ml Bag) 500 ml @ 500 mls/hr 1X PERIOP ONCE IRR Last administered on 11/19/16 08:42; Start 11/19/16 at 06:00; Stop 11/19/16 at 06:59; Status DC Midazolam HCl (Versed) 2 mg STK-MED ONCE .ROUTE ; Start 11/19/16 at 06:33; Stop 11/19/16 at 06:34; Status DC Rocuronium Haugen (Zemuron) 100 mg STK-MED ONCE .ROUTE ; Start 11/19/16 at 06: 33; Stop 11/19/16 at 06:34; Status DC Sufentanil Citrate (Sufenta) 100 mcg STK-MED ONCE .ROUTE ; Start 11/19/16 at 06: 33; Stop 11/19/16 at 06:34; Status DC Isoflurane 90 ml 90 ml STK-MED ONCE IH ; Start 11/19/16 at 06:35; Stop 11/19/16 at 06:36; Status DC Nitroglycerin/ Dextrose (Nitroglycerin Drip) 250 ml @ As Directed STK-MED ONCE IV ; Start 11/19/16 at 06:35; Stop 11/19/16 at 06:36; Status DC Aminocaproic Acid (Amicar) 5,000 mg STK-MED ONCE IV ; Start 11/19/16 at 06:35; Stop 11/19/16 at 06:36; Status DC Aminocaproic Acid (Amicar) 5,000 mg STK-MED ONCE IV ; Start 11/19/16 at 06:35; Stop 11/19/16 at 06:36; Status DC Aminocaproic Acid (Amicar) 5,000 mg STK-MED ONCE IV ; Start 11/19/16 at 06:35; Stop 11/19/16 at 06:36; Status DC Etomidate (Amidate) 20 mg STK-MED ONCE IV ; Start 11/19/16 at 06:35; Stop at 06:36; Status DC Lidocaine HCl (Lidocaine HCl 2% Abboject) 100 mg STK-MED ONCE .ROUTE ; Start at 06:35; Stop 11/19/16 at 06:36; Status DC Phenylephrine HCl (Orn-Synephrine Inj) 10 mg STK-MED ONCE .ROUTE ; Start at 06:35; Stop 11/19/16 at 06:36; Status DC Phenylephrine HCl (Ron-Synephrine Inj) 10 mg STK-MED ONCE .ROUTE ; Start at 06:35; Stop 11/19/16 at 06:36; Status DC Phenylephrine HCl (Ron-Synephrine Inj) 10 mg STK-MED ONCE .ROUTE ; Start at 06:35; Stop 11/19/16 at 06:36; Status DC Heparin Sodium (Porcine) (Heparin Sodium) 10,000 unit STK-MED ONCE .ROUTE ; Start 11/19/16 at 06:35; Stop 11/19/16 at 06:36; Status DC Heparin Sodium (Porcine) (Heparin Sodium) 10,000 unit STK-MED ONCE .ROUTE ; Start 11/19/16 at 06:35; Stop 11/19/16 at 06:36; Status DC Heparin Sodium (Porcine) (Heparin Sodium) 10,000 unit STK-MED ONCE .ROUTE ; Start 11/19/16 at 06:35; Stop 11/19/16 at 06:36; Status DC Heparin Sodium (Porcine) (Heparin Sodium) 10,000 unit STK-MED ONCE .ROUTE ; Start 11/19/16 at 06:35; Stop 11/19/16 at 06:36; Status DC Ephedrine Sulfate 50 mg STK-MED ONCE IV ; Start 11/19/16 at 06:36; Stop at 06:37; Status DC Lidocaine HCl 1 ml STK-MED ONCE .ROUTE ; Start 11/19/16 at 06:39; Stop 11/19/16 at 06:40; Status DC Cellulose 1 each STK-MED ONCE .ROUTE Last administered on 11/19/16 08:42; Start 11/19/16 at 06:57; Stop 11/19/16 at 06:58; Status DC Vancomycin HCl (Vanco) 10 gm STK-MED ONCE .ROUTE Last administered on 08:42; Start 11/19/16 at 06:57; Stop 11/19/16 at 06:58; Status DC Papaverine HCl 60 mg STK-MED ONCE .ROUTE Last administered on 11/19/16 08:42; Start 11/19/16 at 06:57; Stop 11/19/16 at 06:58; Status DC Aspirin (Aspirin) 300 mg STK-MED ONCE .ROUTE Last administered on 11/19/16 13: 06; Start 11/19/16 at 06:58; Stop 11/19/16 at 06:59; Status DC Sodium Chloride 50 ml 50 ml STK-MED ONCE IJ Last administered on 11/19/16 08: 42; Start 11/19/16 at 06:58; Stop 11/19/16 at 06:59; Status DC Vancomycin HCl 250 ml @ As Directed STK-MED ONCE .ROUTE ; Start 11/19/16 at 07: 07; Stop 11/19/16 at 07:08; Status DC Lactated Ringer's 1,000 ml @ 75 mls/hr [id number] IV Last administered on 07:36; Start 11/19/16 at 07:30 Vancomycin HCl 250 ml @ 250 mls/hr 1X PREOP IV ; Start 11/19/16 at 08:00; Stop 11/20/16 at 07:59 Glycopyrrolate (Robinul) 1 mg STK-MED ONCE .ROUTE ; Start 11/19/16 at 08:51; Stop 11/19/16 at 08:52; Status DC Rocuronium Haugen 100 mg 100 mg STK-MED ONCE .ROUTE ; Start 11/19/16 at 08:51; Stop 11/19/16 at 08:52; Status DC Vancomycin HCl/ Sodium Chloride (Iv Sodium Chloride 0.9% 500ml Bag) 500 ml @ 0 mls/hr 1X ONCE IV Last administered on 11/19/16t 09:48; Start 11/19/16 at 09: 00; Stop 11/19/16 at 09:15; Status DC Sufentanil Citrate (Sufenta) 100 mcg STK-MED ONCE .ROUTE ; Start 11/19/16 at 08: 56; Stop 11/19/16 at 08:57; Status DC Midazolam HCl (Versed) 5 mg STK-MED ONCE .ROUTE ; Start 11/19/16 at 09:25; Stop 11/19/16 at 09:26; Status DC Protamine Sulfate 50 mg STK-MED ONCE IV ; Start 11/19/16 at 11:50; Stop at 11:51; Status DC Protamine Sulfate 250 mg STK-MED ONCE IV ; Start 11/19/16 at 11:50; Stop at 11:51; Status DC Protamine Sulfate 250 mg STK-MED ONCE IV ; Start 11/19/16 at 11:57; Stop at 11:58; Status DC Lidocaine HCl (Lidocaine HCl 2% Abboject) 100 mg STK-MED ONCE .ROUTE ; Start at 12:26; Stop 11/19/16 at 12:27; Status DC Mannitol (Mannitol) 12.5 g STK-MED ONCE .ROUTE ; Start 11/19/16 at 12:26; Stop 11/19/16 at 12:27; Status DC Calcium Chloride 1000 mg 1,000 mg STK-MED ONCE IV ; Start 11/19/16 at 12:26; Stop 11/19/16 at 12:27; Status DC Albumin Human (Albuminar) 100 ml @ As Directed STK-MED ONCE IV ; Start at 12:26; Stop 11/19/16 at 12:27; Status DC Heparin Sodium (Porcine) 30,000 unit STK-MED ONCE .ROUTE ; Start 11/19/16 at 12: 26; Stop 11/19/16 at 12:27; Status DC Magnesium Sulfate 5 gm STK-MED ONCE .ROUTE ; Start 11/19/16 at 12:26; Stop 11/19 at 12:27; Status DC Sodium Chloride 3 ml 3 ml PRN Q12HR PRN IV AFTER MEDS AND BLOOD DRAWS; Start at 13:15 Lactated Ringer's 1,000 ml @ 30 mls/hr Q24H IV ; Start 11/19/16 at 13:12 Insulin Human Regular/Sodium Chloride (Novolin R Vial/ Iv Normal Saline 150ml) 151.5 ml @ 0 mls/hr CONT PRN PRN IV SEE I/O RECORD; Start 11/19/16 at 13:15 Dextrose 25 gm 25 gm PRN Q15MIN PRN IV LOW BLOOD SUGAR; Start 11/19/16 at 13:15 Nitroglycerin/ Dextrose 250 ml @ 0 mls/hr CONT PRN PRN IV SEE I/O RECORD; Start 11/19/16 at 13:15 Dopamine HCl/ Dextrose 250 ml @ 0 mls/hr CONT PRN PRN IV SEE I/O RECORD; Start 11/19/16 at 13:15 Dobutamine HCl/ Dextrose 250 ml @ 0 mls/hr CONT PRN PRN IV SEE I/O RECORD; Start 11/19/16 at 13:15 Phenylephrine HCl 20 mg/Sodium Chloride 252 ml @ 0 mls/hr CONT PRN PRN IV HYPOTENSION; Start 11/19/16 at 13:15 Epinephrine HCl/ Sodium Chloride (Adrenalin/Iv Sodium Chloride 0.9% 250ml) 254 ml @ 0 mls/hr CONT PRN PRN IV POST CV SURGERY; Start 11/19/16 at 13:15 Info 1 ea CONT PRN PRN MC SEE COMMENTS; Start 11/19/16 at 13:15 Info 1 ea 1 ea CONT PRN PRN MC SEE COMMENTS; Start 11/19/16 at 13:15 Magnesium Sulfate/ Dextrose (Magnesium Sulfate PREMIX 1GM) 100 ml @ 100 mls/hr PRN DAILY PRN IV FOR MAG < 2.2; Start 11/19/16 at 13:15 Famotidine (Pepcid) 20 mg BID IVP ; Start 11/19/16 at 21:00 Ondansetron HCl (Zofran) 4 mg PRN Q4HRS PRN IV NAUSEA/VOMITING; Start 11/19/16 at 13:15 Prochlorperazine Edisylate (Compazine) 10 mg PRN Q6HRS PRN IV NAUSEA/VOMITING; Start 11/19/16 at 13:15 Morphine Sulfate 2 mg PRN Q1HR PRN IV PAIN; Start 11/19/16 at 13:15 Acetaminophen (Tylenol) 650 mg PRN Q4HRS PRN PO MILD PAIN / TEMP; Start at 13:15 Acetaminophen (Acetaminophen Supp) 650 mg PRN Q4HRS PRN MD MILD PAIN / TEMP; Start 11/19/16 at 13:15 Meperidine HCl 12.5 mg 12.5 mg PRN Q15MIN PRN IV SHIVERING; Start 11/19/16 at 13:15; Stop 11/20/16 at 13:14 Propofol (Diprivan) 100 ml @ 0 mls/hr CONT PRN PRN IV POSTOP SEDATION UNTIL EXTUBATE; Start 11/19/16 at 13:15 Senna/Docusate Sodium (Senna Plus) 1 tab BID PO ; Start 11/19/16 at 21:00 Bisacodyl (Dulcolax Supp) 10 mg PRN DAILY PRN MD NO BOWEL MOVEMENT; Start 11/19 at 13:15 Chlorhexidine Gluconate (Peridex) 15 ml BID MM ; Start 11/19/16 at 21:00 Aspirin 325 mg 325 mg DAILYWBKFT PO ; Start 11/20/16 at 08:00 Nicardipine HCl 50 mg/Sodium Chloride 270 ml @ 0 mls/hr CONT PRN PRN IV PER PROTOCOL; Start 11/19/16 at 13:15 Clevidipine (Cleviprex) 100 ml @ 0 mls/hr CONT PRN IV PER PROTOCOL; Start 11/19 at 13:15 Acetaminophen/ Hydrocodone Bitart (Lortab 5/325) 1 tab PRN Q4HRS PRN PO MILD PAIN; Start 11/19/16 at 13:15 Acetaminophen/ Hydrocodone Bitart 2 tab 2 tab PRN Q4HRS PRN PO MODERATE PAIN, SEVERE PAIN; Start 11/19/16 at 13:15 Cefazolin Sodium/ Dextrose (Ancef 2gm Premix) 50 ml @ 100 mls/hr Q8H IV ; Start 11/19/16 at 13:30; Stop 11/20/16 at 21:59; Status UNV Vitals/I & O Vital Sign - Last 24 Hours 11/18/16 11/18/16 11/18/16 11/18/16 15:00 15:45 16:15 19:40 Temp 97.6 97.6 97.6 97.6 Pulse 59 65 67 75 Resp 18 22 B/P 138/79 126/75 138/71 98/55 Pulse Ox 98 91 O2 Delivery Nasal Cannula O2 Flow Rate 2.0 2.0 11/18/16 11/18/16 11/19/16 11/19/16 20:00 23:45 03:50 03:50 Temp 98.4 98.2 98.4 98.2 Pulse 68 75 Resp 18 18 B/P 101/65 121/73 122/65 Pulse Ox 94 96 O2 Delivery Room Air Nasal Cannula Nasal Cannula O2 Flow Rate 2.0 2.0 11/19/16 06:51 Temp 98.4 98.4 Pulse 68 Resp 18 B/P 132/73 Pulse Ox 91 O2 Delivery Room Air Intake and Output 11/18/16 11/18/16 11/19/16 15:00 23:00 07:00 Intake Total 986 ml Output Total 200 ml 1900 ml 600 ml Balance -200 ml -1900 ml 386 ml OTY CHAMPION MD Nov 19, 2016 14:59
[2016-11-19] MEDS ORDERED: POTASSIUM CHLORIDE 20MEQ 50 ML IV ONE (15:00)
[2016-11-19] MEDS: MORPHINE SULFATE 2 MG/ML DISP.SYRIN. IV PRN ×3 (15:30→20:44)
[2016-11-19] MEDS: ALBUMIN HUMAN 5% 250 ML IV PRN ×4 (15:41→15:58)
--- NOTE | 2016-11-19 16:03 | RAD ---
Portable chest, 11/19/2016: History: Postop CABG Comparison is made to a study from 11/18/2016. Sternal wires are now evident. The tip of the ET tube lies well above the eric. A right jugular [place] catheter extends into the right main pulmonary artery. An NG tube extends into the proximal aspect of the stomach. 2 mediastinal drains and a left chest tube are in place. A wire-like radiopacity overlying the right side of the heart probably represents an epicardial lead. Surgical clips are projected over the left upper quadrant of the abdomen. The heart size and pulmonary vascularity are normal. No pulmonary infiltrates are seen. There is no evidence of pleural fluid or pneumothorax. IMPRESSION: 1. Numerous tubes and catheters have been inserted as described above. 2. No significant postoperative cardiopulmonary abnormality is detected.
[2016-11-19 17:31] LABS: HCO3 ABG 22 mmol/L (21-28); PCO2 ABG 45 mmHg (35-46); PH ABG 7.31 (7.35-7.45); PO2 ABG 101 mmHg (65-108); SAT O2 ABG 96 % (92-99)
[2016-11-19 18:21] LABS: FIO2 ABG 40
[2016-11-19 18:36] LABS: HEMATOCRIT 30.7 % (36.0-47.0); HEMOGLOBIN 10.2 g/dL (12.0-15.5); RED BLOOD COUNT 3.36 x10^6/uL (3.50-5.40); RED CELL DISTRIBUTION WIDTH 13.5 % (11.5-14.5); WHITE BLOOD COUNT 9.3 x10^3/uL (4.0-11.0)
[2016-11-19 18:56] LABS: HCO3 ABG 23 mmol/L (21-28); PCO2 ABG 44 mmHg (35-46); PH ABG 7.34 (7.35-7.45); PO2 ABG 97 mmHg (65-108); SAT O2 ABG 96 % (92-99)
[2016-11-19 18:57] LABS: FIO2 ABG 40
[2016-11-19] MEDS: VANCOMYCIN 1.5 GM in IV NORMAL SALINE 500ML BAG 500 ML IV SCH (19:45)
[2016-11-19] MEDS: HYDROCODONE/APAP 5/325MG TABLET. PO PRN (20:49)
[2016-11-19] MEDS ORDERED: CHLORHEXIDINE 0.12% 15 ML MOUTHWASH. MM SCH (21:00)
[2016-11-19 21:38] LABS: HCO3 ABG 22 mmol/L (21-28); PCO2 ABG 41 mmHg (35-46); PH ABG 7.34 (7.35-7.45); PO2 ABG 78 mmHg (65-108); SAT O2 ABG 94 % (92-99)
[2016-11-19] MEDS: FAMOTIDINE 20 MG/2 ML VIAL IVP SCH (22:29)
[2016-11-19] MEDS: SENNOSIDES/DOCUSATE 8.6/50MG TABLET. PO SCH (22:29)
[2016-11-19] MEDS ORDERED: SODIUM BICARB ADULT 8.4% 50 MEQ/50 ML DISP.SYRIN. IV ONE (22:30)
[2016-11-19 23:19] LABS: HCO3 ABG 25 mmol/L (21-28); PCO2 ABG 43 mmHg (35-46); PH ABG 7.38 (7.35-7.45); PO2 ABG 74 mmHg (65-108); SAT O2 ABG 94 % (92-99)
[2016-11-19 23:22] LABS: FIO2 ABG 28
[2016-11-19 23:22] LABS: FIO2 ABG 28
[2016-11-20] VITALS (24 sets, daily range): BP systolic 89–113; BP diastolic 42–68
[2016-11-20] MEDS: HYDROCODONE/APAP 5/325MG TABLET. PO PRN ×2 (01:00→05:43)
[2016-11-20] MEDS ORDERED: FUROSEMIDE 40 MG/4 ML VIAL. IVP ONE (05:00)
[2016-11-20 05:30] LABS: HEMOGLOBIN 9.7 g/dL (12.0-15.5); RED BLOOD COUNT 3.13 x10^6/uL (3.50-5.40); RED CELL DISTRIBUTION WIDTH 13.4 % (11.5-14.5); WHITE BLOOD COUNT 6.6 x10^3/uL (4.0-11.0)
[2016-11-20 05:52] LABS: CALCIUM 8.1 mg/dL (8.5-10.1); CREATININE 0.9 mg/dL (0.6-1.0); GFR 62.6; MAGNESIUM 1.9 mg/dL (1.8-2.4); POTASSIUM 4.4 mmol/L (3.5-5.1)
[2016-11-20 05:56] LABS: INR 1.3 (0.8-1.1); PROTHROMBIN TIME PATIENT 15.8 SEC (11.7-14.0)
[2016-11-20] MEDS: ASPIRIN ENTERIC COATED 325 MG TABLET.DR. PO SCH (08:26)
[2016-11-20] MEDS: PANTOPRAZOLE 40 MG TABLET.DR. PO SCH (08:26)
[2016-11-20] MEDS: FAMOTIDINE 20 MG/2 ML VIAL IVP SCH ×2 (08:27→21:11)
[2016-11-20] MEDS: DOCUSATE SODIUM 100 MG CAPSULE. PO SCH (08:27)
--- NOTE | 2016-11-20 08:28 | RAD ---
Portable chest, 11/20/2016: History: Respiratory distress, postop evaluation Comparison is made to a study from 11/19/2016. The ET tube, NG tube and [place] catheter have been removed. A right jugular vascular sheath, 2 mediastinal drains and a left chest tube remain in place. The heart is at the upper limits of normal in size. The pulmonary vascularity is normal. There is minimal left basilar atelectasis. The lungs are otherwise clear. There is no evidence of pneumothorax or significant pleural fluid. IMPRESSION: 1. Minimal left basilar atelectasis. 2. The postoperative chest is otherwise unremarkable.
[2016-11-20] MEDS: VANCOMYCIN 1.5 GM in IV NORMAL SALINE 500ML BAG 500 ML IV SCH ×2 (08:29→21:11)
[2016-11-20] MEDS ORDERED: POTASSIUM CHLORIDE 20MEQ 50 ML IV ONE ×2 (08:30)
[2016-11-20] MEDS: ONDANSETRON PF 4 MG/2 ML VIAL. IV PRN (09:08)
[2016-11-20] MEDS: SENNOSIDES/DOCUSATE 8.6/50MG TABLET. PO SCH ×2 (09:26→21:11)
[2016-11-20] MEDS ORDERED: KETOROLAC 15 MG/ML VIAL. IV ONE (13:00)
--- NOTE | 2016-11-20 14:46 | PDOC ---
PROGRESS NOTES Chief Complaint Chief Complaint cc: chest pain CAD with CABG (11/19/2016) NSTEMI GERD CAD Hypokalemia rheumatoid arthritis prior Tubal Ligation Tonsillectomy History of Present Illness History of Present Illness Patient seen and evaluated at bedside. POD#1 s/p CABGx2. Patient sitting upright in chair, tolerating PO fluids. Patient reports pain around her drains site and generalized weakness. d/w nurse about plan of care. Vitals Vitals Vital Signs Date Time Temp Pulse Resp B/P Pulse Ox O2 Delivery O2 Flow Rate FiO2 11/20/16 11:00 64 18 98/63 96 Nasal Cannula 2.0 11/20/16 08:00 98.3 98.3 Physical Exam Physical Exam in ICU post op General: Alert, Cooperative, mild distress Heart: Regular rate, Normal S1, Normal S2, Other (dressing and drains in place , clean, dry, and intact. tenderness to palpation to drain sites. ) Lungs: Clear, Other (diminished inspiratory effort secondary to pain. negative accessory muscle use. ) Abdomen: Soft, No tenderness Extremities: No clubbing, No edema, Normal pulses Skin: No rashes, No breakdown Labs LABS Laboratory Tests Test 11/19/16 15:36 11/19/16 17:25 11/19/16 17:30 11/19/16 18:21 Glucose (Fingerstick) 114mg/dL (70-99) 144mg/dL (70-99) O2 Saturation 96% (92-99) Arterial Blood pH 7.31 (7.35-7.45) Arterial Blood pCO2 at Patient Temp 45mmHg (35-46) Arterial Blood pO2 at Patient Temp 101mmHg (65-108) Arterial Blood HCO3 22mmol/L (21-28) Arterial Blood Base Excess -4mmol/L (-3-3) FiO2 40 White Blood Count 9.3x10^3/uL (4.0-11.0) Red Blood Count 3.36x10^6/uL (3.50-5.40) Hemoglobin 10.2g/dL (12.0-15.5) Hematocrit 30.7% (36.0-47.0) Mean Corpuscular Volume 91fL (79-100) Mean Corpuscular Hemoglobin 30pg (25-35) Mean Corpuscular Hemoglobin Concent 33g/dL (31-37) Red Cell Distribution Width 13.5% (11.5-14.5) Platelet Count 136x10^3/uL (140-400) Potassium Level 5.1mmol/L (3.5-5.1) Test 11/19/16 18:49 11/19/16 19:34 11/19/16 21:32 11/19/16 21:56 O2 Saturation 96% (92-99) 94% (92-99) Arterial Blood pH 7.34 (7.35-7.45) 7.34 (7.35-7.45) Arterial Blood pCO2 at Patient Temp 44mmHg (35-46) 41mmHg (35-46) Arterial Blood pO2 at Patient Temp 97mmHg (65-108) 78mmHg (65-108) Arterial Blood HCO3 23mmol/L (21-28) 22mmol/L (21-28) Arterial Blood Base Excess -3mmol/L (-3-3) -4mmol/L (-3-3) FiO2 40 28 Glucose (Fingerstick) 125mg/dL (70-99) 100mg/dL (70-99) Test 11/19/16 23:00 11/20/16 00:26 11/20/16 05:00 11/20/16 05:04 O2 Saturation 94% (92-99) Arterial Blood pH 7.38 (7.35-7.45) Arterial Blood pCO2 at Patient Temp 43mmHg (35-46) Arterial Blood pO2 at Patient Temp 74mmHg (65-108) Arterial Blood HCO3 25mmol/L (21-28) Arterial Blood Base Excess -1mmol/L (-3-3) FiO2 28 Glucose (Fingerstick) 124mg/dL (70-99) 121mg/dL (70-99) White Blood Count 6.6x10^3/uL (4.0-11.0) Red Blood Count 3.13x10^6/uL (3.50-5.40) Hemoglobin 9.7g/dL (12.0-15.5) Hematocrit 28.0% (36.0-47.0) Mean Corpuscular Volume 89fL (79-100) Mean Corpuscular Hemoglobin 31pg (25-35) Mean Corpuscular Hemoglobin Concent 35g/dL (31-37) Red Cell Distribution Width 13.4% (11.5-14.5) Platelet Count 122x10^3/uL (140-400) Prothrombin Time 15.8SEC (11.7-14.0) Prothromb Time International Ratio 1.3 (0.8-1.1) Sodium Level 141mmol/L (136-145) Potassium Level 4.4mmol/L (3.5-5.1) Chloride Level 109mmol/L (98-107) Carbon Dioxide Level 27mmol/L (21-32) Anion Gap 5 (6-14) Blood Urea Nitrogen 14mg/dL (7-20) Creatinine 0.9mg/dL (0.6-1.0) Estimated GFR (Cockcroft-Gault) 62.6 Glucose Level 125mg/dL (70-99) Calcium Level 8.1mg/dL (8.5-10.1) Magnesium Level 1.9mg/dL (1.8-2.4) Creatine Kinase 412U/L (26-192) Test 11/20/16 07:33 Glucose (Fingerstick) 119mg/dL (70-99) Review of Systems Review of Systems (+) pain to drain sites (+) generalized weakness Denies sob, palpitations, abdominal pain, n/v/d, lightheadedness/dizziness, headache, or fever/chills. Assessment and Plan Assessmemt and Plan Assessment: 1.) NSTEMI, POA 2.) CAD with left main disease, POD#1 CABGx2 3.) GERD 4.) Hypokalemia, POA. currently WNL 5.) rheumatoid arthritis Assessment: 1.) continue ICU monitoring and post-op care 2.) wound care consult 3.) appreciate subspecialty input 4.) continue pain control 5.) monitor AM labs 6.) PT/OT evaluation and treatment when appropriate; cardiac rehabilitation evaluation. 7.) continue vancomycin Problems: Comment Review of Relevant I have reviewed the following items melva (where applicable) has been applied. Labs Laboratory Tests Test 11/19/16 04:10 11/19/16 04:19 11/19/16 08:37 11/19/16 08:40 White Blood Count 6.8x10^3/uL (4.0-11.0) Red Blood Count 4.30x10^6/uL (3.50-5.40) Hemoglobin 12.9g/dL (12.0-15.5) Hematocrit 38.7% (36.0-47.0) Mean Corpuscular Volume 90fL (79-100) Mean Corpuscular Hemoglobin 30pg (25-35) Mean Corpuscular Hemoglobin Concent 33g/dL (31-37) Red Cell Distribution Width 13.5% (11.5-14.5) Platelet Count 206x10^3/uL (140-400) Neutrophils (%) (Auto) 64% (31-73) Lymphocytes (%) (Auto) 26% (24-48) Monocytes (%) (Auto) 8% (0-9) Eosinophils (%) (Auto) 1% (0-3) Basophils (%) (Auto) 1% (0-3) Neutrophils # (Auto) 4.3x10^3uL (1.8-7.7) Lymphocytes # (Auto) 1.8x10^3/uL (1.0-4.8) Monocytes # (Auto) 0.6x10^3/uL (0.0-1.1) Eosinophils # (Auto) 0.1x10^3/uL (0.0-0.7) Basophils # (Auto) 0.0x10^3/uL (0.0-0.2) Sodium Level 138mmol/L (136-145) Potassium Level 3.7mmol/L (3.5-5.1) Chloride Level 106mmol/L (98-107) Carbon Dioxide Level 30mmol/L (21-32) Anion Gap 2 (6-14) Blood Urea Nitrogen 9mg/dL (7-20) Creatinine 1.0mg/dL (0.6-1.0) Estimated GFR (Cockcroft-Gault) 55.5 BUN/Creatinine Ratio 9 (6-20) Glucose Level 92mg/dL (70-99) 110mg/dL (70-99) Calcium Level 8.0mg/dL (8.5-10.1) Total Bilirubin 0.3mg/dL (0.2-1.0) Aspartate Amino Transf (AST/SGOT) 28U/L (15-37) Alanine Aminotransferase (ALT/SGPT) 30U/L (14-59) Alkaline Phosphatase 42U/L (46-116) Total Protein 5.8g/dL (6.4-8.2) Albumin 2.9g/dL (3.4-5.0) Albumin/Globulin Ratio 1.0 (1.0-1.7) Glucose (Fingerstick) 83mg/dL (70-99) Bedside Hemoglobin (Calculated) 10.9g/dL (12-15) Bedside Hematocrit 32% (36-40) Bedside Arterial pH 7.43 (7.35-7.45) Bedside Arterial pCO2 39mmHg (35-45) Bedside Arterial pO2 242mmHg (75-100) Bedside Arterial HCO3 26mmol/L (21-28) Bedside Arterial Total CO2 27mmol/L (21-32) Arterial Bld O2 Saturation (Measur) 100% (95-99) Bedside Arterial Blood Base Excess 1mmol/L (0-3) Bedside FiO2 100.0 Bedside Sodium 141mmol/L (135-145) Bedside Potassium 3.7mmol/L (3.5-5.0) Bedside Ionized Calcium (Margarita) 1.15mmol/L (1.13-1.32) Activated Clotting Time 114SEC (90-125) Test 11/19/16 09:53 11/19/16 10:55 11/19/16 11:00 11/19/16 11:28 Activated Clotting Time 466SEC (90-125) > 1000SEC (90-125) Bedside Hemoglobin (Calculated) 9.5g/dL (12-15) 8.8g/dL (12-15) Bedside Hematocrit 28% (36-40) 26% (36-40) Bedside Arterial pH 7.48 (7.35-7.45) 7.46 (7.35-7.45) Bedside Arterial pCO2 32mmHg (35-45) 36mmHg (35-45) Bedside Arterial pO2 345mmHg (75-100) 295mmHg (75-100) Bedside Arterial HCO3 24mmol/L (21-28) 26mmol/L (21-28) Bedside Arterial Total CO2 25mmol/L (21-32) 27mmol/L (21-32) Arterial Bld O2 Saturation (Measur) 100% (95-99) 100% (95-99) Bedside Arterial Blood Base Excess 1mmol/L (0-3) 2mmol/L (0-3) Bedside FiO2 70.0 70.0 Bedside Sodium 139mmol/L (135-145) 139mmol/L (135-145) Bedside Potassium 4.8mmol/L (3.5-5.0) 4.5mmol/L (3.5-5.0) Glucose Level 122mg/dL (70-99) 114mg/dL (70-99) Bedside Ionized Calcium (Margarita) 0.99mmol/L (1.13-1.32) 1.04mmol/L (1.13-1.32) Test 11/19/16 11:30 11/19/16 11:59 11/19/16 12:00 11/19/16 12:17 Activated Clotting Time 506SEC (90-125) 519SEC (90-125) Bedside Hemoglobin (Calculated) 8.2g/dL (12-15) 8.8g/dL (12-15) Bedside Hematocrit 24% (36-40) 26% (36-40) Bedside Arterial pH 7.40 (7.35-7.45) 7.45 (7.35-7.45) Bedside Arterial pCO2 43mmHg (35-45) 37mmHg (35-45) Bedside Arterial pO2 323mmHg (75-100) 394mmHg (75-100) Bedside Arterial HCO3 27mmol/L (21-28) 26mmol/L (21-28) Bedside Arterial Total CO2 28mmol/L (21-32) 27mmol/L (21-32) Arterial Bld O2 Saturation (Measur) 100% (95-99) 100% (95-99) Bedside Arterial Blood Base Excess 2mmol/L (0-3) 2mmol/L (0-3) Bedside FiO2 80.0 100.0 Bedside Sodium 137mmol/L (135-145) 138mmol/L (135-145) Bedside Potassium 4.5mmol/L (3.5-5.0) 4.0mmol/L (3.5-5.0) Glucose Level 127mg/dL (70-99) 120mg/dL (70-99) Bedside Ionized Calcium (Margarita) 1.84mmol/L (1.13-1.32) 1.70mmol/L (1.13-1.32) Test 11/19/16 12:19 11/19/16 13:00 11/19/16 13:01 11/19/16 13:30 Activated Clotting Time 114SEC (90-125) White Blood Count 8.7x10^3/uL (4.0-11.0) Hemoglobin 10.8g/dL (12.0-15.5) Hematocrit 32.8% (36.0-47.0) Platelet Count 128x10^3/uL (140-400) Prothrombin Time 16.4SEC (11.7-14.0) Prothromb Time International Ratio 1.4 (0.8-1.1) Activated Partial Thromboplast Time 33SEC (24-38) Fibrinogen 197mg/dL (200-440) Bedside Hemoglobin (Calculated) 10.2g/dL (12-15) Bedside Hematocrit 30% (36-40) Bedside Arterial pH 7.42 (7.35-7.45) Bedside Arterial pCO2 38mmHg (35-45) Bedside Arterial pO2 355mmHg (75-100) Bedside Arterial HCO3 25mmol/L (21-28) Bedside Arterial Total CO2 26mmol/L (21-32) Arterial Bld O2 Saturation (Measur) 100% (95-99) Bedside Arterial Blood Base Excess 0mmol/L (0-3) Bedside FiO2 100.0 Bedside Sodium 140mmol/L (135-145) Bedside Potassium 3.8mmol/L (3.5-5.0) Glucose Level 111mg/dL (70-99) Bedside Ionized Calcium (Margarita) 1.46mmol/L (1.13-1.32) O2 Saturation 97% (92-99) Arterial Blood pH 7.40 (7.35-7.45) Arterial Blood pCO2 at Patient Temp 37mmHg (35-46) Arterial Blood pO2 at Patient Temp 101mmHg (65-108) Arterial Blood HCO3 23mmol/L (21-28) Arterial Blood Base Excess -2mmol/L (-3-3) FiO2 100 Test 11/19/16 13:40 11/19/16 15:36 11/19/16 17:25 11/19/16 17:30 White Blood Count 8.9x10^3/uL (4.0-11.0) 9.3x10^3/uL (4.0-11.0) Red Blood Count 3.91x10^6/uL (3.50-5.40) 3.36x10^6/uL (3.50-5.40) Hemoglobin 11.9g/dL (12.0-15.5) 10.2g/dL (12.0-15.5) Hematocrit 35.5% (36.0-47.0) 30.7% (36.0-47.0) Mean Corpuscular Volume 91fL (79-100) 91fL (79-100) Mean Corpuscular Hemoglobin 31pg (25-35) 30pg (25-35) Mean Corpuscular Hemoglobin Concent 34g/dL (31-37) 33g/dL (31-37) Red Cell Distribution Width 13.3% (11.5-14.5) 13.5% (11.5-14.5) Platelet Count 143x10^3/uL (140-400) 136x10^3/uL (140-400) Prothrombin Time 16.1SEC (11.7-14.0) Prothromb Time International Ratio 1.4 (0.8-1.1) Activated Partial Thromboplast Time 31SEC (24-38) Sodium Level 141mmol/L (136-145) Potassium Level 4.0mmol/L (3.5-5.1) 5.1mmol/L (3.5-5.1) Chloride Level 110mmol/L (98-107) Carbon Dioxide Level 26mmol/L (21-32) Anion Gap 5 (6-14) Blood Urea Nitrogen 8mg/dL (7-20) Creatinine 0.9mg/dL (0.6-1.0) Estimated GFR (Cockcroft-Gault) 62.6 Glucose Level 118mg/dL (70-99) Calcium Level 9.4mg/dL (8.5-10.1) Magnesium Level 2.6mg/dL (1.8-2.4) Glucose (Fingerstick) 114mg/dL (70-99) O2 Saturation 96% (92-99) Arterial Blood pH 7.31 (7.35-7.45) Arterial Blood pCO2 at Patient Temp 45mmHg (35-46) Arterial Blood pO2 at Patient Temp 101mmHg (65-108) Arterial Blood HCO3 22mmol/L (21-28) Arterial Blood Base Excess -4mmol/L (-3-3) FiO2 40 Test 11/19/16 18:21 11/19/16 18:49 11/19/16 19:34 11/19/16 21:32 Glucose (Fingerstick) 144mg/dL (70-99) 125mg/dL (70-99) O2 Saturation 96% (92-99) 94% (92-99) Arterial Blood pH 7.34 (7.35-7.45) 7.34 (7.35-7.45) Arterial Blood pCO2 at Patient Temp 44mmHg (35-46) 41mmHg (35-46) Arterial Blood pO2 at Patient Temp 97mmHg (65-108) 78mmHg (65-108) Arterial Blood HCO3 23mmol/L (21-28) 22mmol/L (21-28) Arterial Blood Base Excess -3mmol/L (-3-3) -4mmol/L (-3-3) FiO2 40 28 Test 11/19/16 21:56 11/19/16 23:00 11/20/16 00:26 11/20/16 05:00 Glucose (Fingerstick) 100mg/dL (70-99) 124mg/dL (70-99) O2 Saturation 94% (92-99) Arterial Blood pH 7.38 (7.35-7.45) Arterial Blood pCO2 at Patient Temp 43mmHg (35-46) Arterial Blood pO2 at Patient Temp 74mmHg (65-108) Arterial Blood HCO3 25mmol/L (21-28) Arterial Blood Base Excess -1mmol/L (-3-3) FiO2 28 White Blood Count 6.6x10^3/uL (4.0-11.0) Red Blood Count 3.13x10^6/uL (3.50-5.40) Hemoglobin 9.7g/dL (12.0-15.5) Hematocrit 28.0% (36.0-47.0) Mean Corpuscular Volume 89fL (79-100) Mean Corpuscular Hemoglobin 31pg (25-35) Mean Corpuscular Hemoglobin Concent 35g/dL (31-37) Red Cell Distribution Width 13.4% (11.5-14.5) Platelet Count 122x10^3/uL (140-400) Prothrombin Time 15.8SEC (11.7-14.0) Prothromb Time International Ratio 1.3 (0.8-1.1) Sodium Level 141mmol/L (136-145) Potassium Level 4.4mmol/L (3.5-5.1) Chloride Level 109mmol/L (98-107) Carbon Dioxide Level 27mmol/L (21-32) Anion Gap 5 (6-14) Blood Urea Nitrogen 14mg/dL (7-20) Creatinine 0.9mg/dL (0.6-1.0) Estimated GFR (Cockcroft-Gault) 62.6 Glucose Level 125mg/dL (70-99) Calcium Level 8.1mg/dL (8.5-10.1) Magnesium Level 1.9mg/dL (1.8-2.4) Creatine Kinase 412U/L (26-192) Test 11/20/16 05:04 11/20/16 07:33 Glucose (Fingerstick) 121mg/dL (70-99) 119mg/dL (70-99) Laboratory Tests Test 11/19/16 15:36 11/19/16 17:25 11/19/16 17:30 11/19/16 18:21 Glucose (Fingerstick) 114mg/dL (70-99) 144mg/dL (70-99) O2 Saturation 96% (92-99) Arterial Blood pH 7.31 (7.35-7.45) Arterial Blood pCO2 at Patient Temp 45mmHg (35-46) Arterial Blood pO2 at Patient Temp 101mmHg (65-108) Arterial Blood HCO3 22mmol/L (21-28) Arterial Blood Base Excess -4mmol/L (-3-3) FiO2 40 White Blood Count 9.3x10^3/uL (4.0-11.0) Red Blood Count 3.36x10^6/uL (3.50-5.40) Hemoglobin 10.2g/dL (12.0-15.5) Hematocrit 30.7% (36.0-47.0) Mean Corpuscular Volume 91fL (79-100) Mean Corpuscular Hemoglobin 30pg (25-35) Mean Corpuscular Hemoglobin Concent 33g/dL (31-37) Red Cell Distribution Width 13.5% (11.5-14.5) Platelet Count 136x10^3/uL (140-400) Potassium Level 5.1mmol/L (3.5-5.1) Test 11/19/16 18:49 11/19/16 19:34 11/19/16 21:32 11/19/16 21:56 O2 Saturation 96% (92-99) 94% (92-99) Arterial Blood pH 7.34 (7.35-7.45) 7.34 (7.35-7.45) Arterial Blood pCO2 at Patient Temp 44mmHg (35-46) 41mmHg (35-46) Arterial Blood pO2 at Patient Temp 97mmHg (65-108) 78mmHg (65-108) Arterial Blood HCO3 23mmol/L (21-28) 22mmol/L (21-28) Arterial Blood Base Excess -3mmol/L (-3-3) -4mmol/L (-3-3) FiO2 40 28 Glucose (Fingerstick) 125mg/dL (70-99) 100mg/dL (70-99) Test 11/19/16 23:00 11/20/16 00:26 11/20/16 05:00 11/20/16 05:04 O2 Saturation 94% (92-99) Arterial Blood pH 7.38 (7.35-7.45) Arterial Blood pCO2 at Patient Temp 43mmHg (35-46) Arterial Blood pO2 at Patient Temp 74mmHg (65-108) Arterial Blood HCO3 25mmol/L (21-28) Arterial Blood Base Excess -1mmol/L (-3-3) FiO2 28 Glucose (Fingerstick) 124mg/dL (70-99) 121mg/dL (70-99) White Blood Count 6.6x10^3/uL (4.0-11.0) Red Blood Count 3.13x10^6/uL (3.50-5.40) Hemoglobin 9.7g/dL (12.0-15.5) Hematocrit 28.0% (36.0-47.0) Mean Corpuscular Volume 89fL (79-100) Mean Corpuscular Hemoglobin 31pg (25-35) Mean Corpuscular Hemoglobin Concent 35g/dL (31-37) Red Cell Distribution Width 13.4% (11.5-14.5) Platelet Count 122x10^3/uL (140-400) Prothrombin Time 15.8SEC (11.7-14.0) Prothromb Time International Ratio 1.3 (0.8-1.1) Sodium Level 141mmol/L (136-145) Potassium Level 4.4mmol/L (3.5-5.1) Chloride Level 109mmol/L (98-107) Carbon Dioxide Level 27mmol/L (21-32) Anion Gap 5 (6-14) Blood Urea Nitrogen 14mg/dL (7-20) Creatinine 0.9mg/dL (0.6-1.0) Estimated GFR (Cockcroft-Gault) 62.6 Glucose Level 125mg/dL (70-99) Calcium Level 8.1mg/dL (8.5-10.1) Magnesium Level 1.9mg/dL (1.8-2.4) Creatine Kinase 412U/L (26-192) Test 11/20/16 07:33 Glucose (Fingerstick) 119mg/dL (70-99) Medications Current Medications Acetaminophen (Tylenol) 650 mg PRN Q6HRS PRN PO PAIN Last administered on 12:33; Start 11/17/16 at 10:00 Ondansetron HCl (Zofran) 4 mg PRN Q6HRS PRN IV NAUSEA/VOMITING Last administered on 11/18/16 14:01; Start 11/17/16 at 10:15; Stop 11/19/16 at 08:57 ; Status DC Pantoprazole Sodium (Protonix) 40 mg DAILYAC PO Last administered on 11/20/16 08:26; Start 11/18/16 at 07:30 Regadenoson (Lexiscan) 0.4 mg 1X ONCE IV Last administered on 11/17/16 11:45 ; Start 11/17/16 at 11:15; Stop 11/17/16 at 11:16; Status DC Aspirin (Ecotrin) 325 mg 1X ONCE PO Last administered on 11/18/16 00:06; Start 11/17/16 at 23:30; Stop 11/17/16 at 23:31; Status DC Iohexol 100 ml 100 ml STK-MED ONCE .ROUTE ; Start 11/18/16 at 10:16; Stop at 10:17; Status DC Heparin Sodium/ Sodium Chloride 1,000 ml @ As Directed STK-MED ONCE .ROUTE ; Start 11/18/16 at 10:16; Stop 11/18/16 at 10:17; Status DC Lidocaine HCl 20 ml STK-MED ONCE .ROUTE ; Start 11/18/16 at 10:16; Stop at 10:17; Status DC Nitroglycerin (Nitroglycerin) 200 mcg STK-MED ONCE .ROUTE ; Start 11/18/16 at 10 :57; Stop 11/18/16 at 10:58; Status DC Verapamil HCl (Verapamil) 5 mg STK-MED ONCE .ROUTE ; Start 11/18/16 at 10:57; Stop 11/18/16 at 10:58; Status DC Midazolam HCl (Versed) 5 mg STK-MED ONCE .ROUTE ; Start 11/18/16 at 10:57; Stop 11/18/16 at 10:58; Status DC Fentanyl Citrate (Fentanyl 5ml Vial) 250 mcg STK-MED ONCE .ROUTE ; Start at 10:57; Stop 11/18/16 at 10:58; Status DC Heparin Sodium (Porcine) (Heparin Sodium) 10,000 unit STK-MED ONCE .ROUTE ; Start 11/18/16 at 10:57; Stop 11/18/16 at 10:58; Status DC Nitroglycerin (Nitroglycerin) 200 mcg 1X ONCE IART Last administered on 11:34; Start 11/18/16 at 11:30; Stop 11/18/16 at 11:31; Status DC Verapamil HCl (Verapamil) 2.5 mg 1X ONCE IART Last administered on 11/18/16 11:34; Start 11/18/16 at 11:30; Stop 11/18/16 at 11:31; Status DC Heparin Sodium (Porcine) (Heparin Sodium) 2,500 unit 1X ONCE IART Last administered on 11/18/16 11:41; Start 11/18/16 at 11:30; Stop 11/18/16 at 11:31 ; Status DC Heparin Sodium/ Sodium Chloride 1,000 unit 1X ONCE IART Last administered on 11:34; Start 11/18/16 at 11:30; Stop 11/18/16 at 11:31; Status DC Midazolam HCl (Versed) 5 mg 1X ONCE IV Last administered on 11/18/16 11:33; Start 11/18/16 at 11:30; Stop 11/18/16 at 11:31; Status DC Fentanyl Citrate (Fentanyl 5ml Vial) 250 mcg 1X ONCE IV Last administered on 11:33; Start 11/18/16 at 11:30; Stop 11/18/16 at 11:31; Status DC Iohexol (Omnipaque 300 Mg/ml) 100 ml 1X ONCE IART Last administered on 11:34; Start 11/18/16 at 11:30; Stop 11/18/16 at 11:31; Status DC Lidocaine HCl 20 ml 20 ml 1X ONCE IJ Last administered on 11/18/16 11:34; Start 11/18/16 at 11:30; Stop 11/18/16 at 11:31; Status DC Sodium Chloride (Iv Sodium Chloride 0.45%) 1,000 ml @ 60 mls/hr [id number] IV Last administered on 11/19/16 04:33; Start 11/18/16 at 11:54 Nitroglycerin 0.4 mg 0.4 mg PRN Q5MIN PRN SL CHEST PAIN; Start 11/18/16 at 12: 00 Magnesium Sulfate/ Dextrose (Magnesium Sulfate PREMIX 2GM) 50 ml @ 25 mls/hr 1X ONCE IV Last administered on 11/18/16 16:14; Start 11/18/16 at 14:00; Stop 11/18/16 at 15:59; Status DC Potassium Chloride (Klor-Con) 20 meq 1X ONCE PO ; Start 11/18/16 at 13:45; Stop 11/18/16 at 13:46; Status DC Ondansetron HCl (Zofran) 4 mg PRN Q8HRS PRN IV NAUSEA/VOMITING Last administered on 11/20/16 09:08; Start 11/18/16 at 13:45 Docusate Sodium (Colace) 100 mg DAILY PO Last administered on 11/20/16 08:27; Start 11/18/16 at 14:00 Polyethylene Glycol (miraLAX PACKET) 17 gm PRN DAILY PRN PO CONSTIPATION; Start 11/18/16 at 13:45 Iohexol (Omnipaque 300 Mg/ml) 75 ml 1X ONCE IV ; Start 11/18/16 at 15:00; Stop 11/18/16 at 15:01; Status DC Info (Do NOT chart on this entry -- for MONITORING) 1 each PRN DAILY PRN MC SEE COMMENTS; Start 11/18/16 at 15:00; Stop 11/20/16 at 14:59 Prochlorperazine Edisylate 10 mg 10 mg 1X ONCE IV Last administered on 15:45; Start 11/18/16 at 15:45; Stop 11/18/16 at 15:47; Status DC Potassium Chloride 70 meq/ Sodium Bicarbonate 12.5 meq/Lidocaine HCl 24 ml/ Parenteral Electrolytes 571.5 ml @ 571.5 mls/ hr 1X PERIOP ONCE IRR ; Start at 06:00; Stop 11/19/16 at 06:59; Status DC Potassium Chloride 15 meq/ Sodium Bicarbonate 12.5 meq/Parenteral Electrolytes 520 ml @ 520 mls/hr 1X PERIOP ONCE IRR ; Start 11/19/16 at 06:00; Stop at 06:59; Status DC Heparin Sodium (Porcine) 35291 unit/Lactated Ringer's 1,020 ml @ 1,020 mls/hr 1X PERIOP ONCE IRR Last administered on 11/19/16 08:42; Start 11/19/16 at 06: 00; Stop 11/19/16 at 06:59; Status DC Cefazolin Sodium/ Sodium Chloride (Ancef/Iv Sodium Chloride 0.9% 500ml Bag) 500 ml @ 500 mls/hr 1X PERIOP ONCE IRR Last administered on 11/19/16 08:42; Start 11/19/16 at 06:00; Stop 11/19/16 at 06:59; Status DC Midazolam HCl (Versed) 2 mg STK-MED ONCE .ROUTE ; Start 11/19/16 at 06:33; Stop 11/19/16 at 06:34; Status DC Rocuronium [place] (Zemuron) 100 mg STK-MED ONCE .ROUTE ; Start 11/19/16 at 06: 33; Stop 11/19/16 at 06:34; Status DC Sufentanil Citrate (Sufenta) 100 mcg STK-MED ONCE .ROUTE ; Start 11/19/16 at 06: 33; Stop 11/19/16 at 06:34; Status DC Isoflurane 90 ml 90 ml STK-MED ONCE IH ; Start 11/19/16 at 06:35; Stop 11/19/16 at 06:36; Status DC Nitroglycerin/ Dextrose (Nitroglycerin Drip) 250 ml @ As Directed STK-MED ONCE IV ; Start 11/19/16 at 06:35; Stop 11/19/16 at 06:36; Status DC Aminocaproic Acid (Amicar) 5,000 mg STK-MED ONCE IV ; Start 11/19/16 at 06:35; Stop 11/19/16 at 06:36; Status DC Aminocaproic Acid (Amicar) 5,000 mg STK-MED ONCE IV ; Start 11/19/16 at 06:35; Stop 11/19/16 at 06:36; Status DC Aminocaproic Acid (Amicar) 5,000 mg STK-MED ONCE IV ; Start 11/19/16 at 06:35; Stop 11/19/16 at 06:36; Status DC Etomidate (Amidate) 20 mg STK-MED ONCE IV ; Start 11/19/16 at 06:35; Stop at 06:36; Status DC Lidocaine HCl (Lidocaine HCl 2% Abboject) 100 mg STK-MED ONCE .ROUTE ; Start at 06:35; Stop 11/19/16 at 06:36; Status DC Phenylephrine HCl (Ron-Synephrine Inj) 10 mg STK-MED ONCE .ROUTE ; Start at 06:35; Stop 11/19/16 at 06:36; Status DC Phenylephrine HCl (Ron-Synephrine Inj) 10 mg STK-MED ONCE .ROUTE ; Start at 06:35; Stop 11/19/16 at 06:36; Status DC Phenylephrine HCl (Ron-Synephrine Inj) 10 mg STK-MED ONCE .ROUTE ; Start at 06:35; Stop 11/19/16 at 06:36; Status DC Heparin Sodium (Porcine) (Heparin Sodium) 10,000 unit STK-MED ONCE .ROUTE ; Start 11/19/16 at 06:35; Stop 11/19/16 at 06:36; Status DC Heparin Sodium (Porcine) (Heparin Sodium) 10,000 unit STK-MED ONCE .ROUTE ; Start 11/19/16 at 06:35; Stop 11/19/16 at 06:36; Status DC Heparin Sodium (Porcine) (Heparin Sodium) 10,000 unit STK-MED ONCE .ROUTE ; Start 11/19/16 at 06:35; Stop 11/19/16 at 06:36; Status DC Heparin Sodium (Porcine) (Heparin Sodium) 10,000 unit STK-MED ONCE .ROUTE ; Start 11/19/16 at 06:35; Stop 11/19/16 at 06:36; Status DC Ephedrine Sulfate 50 mg STK-MED ONCE IV ; Start 11/19/16 at 06:36; Stop at 06:37; Status DC Lidocaine HCl 1 ml STK-MED ONCE .ROUTE ; Start 11/19/16 at 06:39; Stop 11/19/16 at 06:40; Status DC Cellulose 1 each STK-MED ONCE .ROUTE Last administered on 11/19/16 08:42; Start 11/19/16 at 06:57; Stop 11/19/16 at 06:58; Status DC Vancomycin HCl (Vanco) 10 gm STK-MED ONCE .ROUTE Last administered on 08:42; Start 11/19/16 at 06:57; Stop 11/19/16 at 06:58; Status DC Papaverine HCl 60 mg STK-MED ONCE .ROUTE Last administered on 11/19/16 08:42; Start 11/19/16 at 06:57; Stop 11/19/16 at 06:58; Status DC Aspirin (Aspirin) 300 mg STK-MED ONCE .ROUTE Last administered on 11/19/16 13: 06; Start 11/19/16 at 06:58; Stop 11/19/16 at 06:59; Status DC Sodium Chloride 50 ml 50 ml STK-MED ONCE IJ Last administered on 11/19/16 08: 42; Start 11/19/16 at 06:58; Stop 11/19/16 at 06:59; Status DC Vancomycin HCl 250 ml @ As Directed STK-MED ONCE .ROUTE ; Start 11/19/16 at 07: 07; Stop 11/19/16 at 07:08; Status DC Lactated Ringer's 1,000 ml @ 75 mls/hr [id number] IV Last administered on 07:36; Start 11/19/16 at 07:30 Vancomycin HCl 250 ml @ 250 mls/hr 1X PREOP IV ; Start 11/19/16 at 08:00; Stop 11/20/16 at 07:59; Status DC Glycopyrrolate (Robinul) 1 mg STK-MED ONCE .ROUTE ; Start 11/19/16 at 08:51; Stop 11/19/16 at 08:52; Status DC Rocuronium [place] 100 mg 100 mg STK-MED ONCE .ROUTE ; Start 11/19/16 at 08:51; Stop 11/19/16 at 08:52; Status DC Vancomycin HCl/ Sodium Chloride (Iv Sodium Chloride 0.9% 500ml Bag) 500 ml @ 0 mls/hr 1X ONCE IV Last administered on 11/19/16 09:48; Start 11/19/16 at 09: 00; Stop 11/19/16 at 09:15; Status DC Sufentanil Citrate (Sufenta) 100 mcg STK-MED ONCE .ROUTE ; Start 11/19/16 at 08: 56; Stop 11/19/16 at 08:57; Status DC Midazolam HCl (Versed) 5 mg STK-MED ONCE .ROUTE ; Start 11/19/16 at 09:25; Stop 11/19/16 at 09:26; Status DC Protamine Sulfate 50 mg STK-MED ONCE IV ; Start 11/19/16 at 11:50; Stop at 11:51; Status DC Protamine Sulfate 250 mg STK-MED ONCE IV ; Start 11/19/16 at 11:50; Stop at 11:51; Status DC Protamine Sulfate 250 mg STK-MED ONCE IV ; Start 11/19/16 at 11:57; Stop at 11:58; Status DC Lidocaine HCl (Lidocaine HCl 2% Abboject) 100 mg STK-MED ONCE .ROUTE ; Start at 12:26; Stop 11/19/16 at 12:27; Status DC Mannitol (Mannitol) 12.5 g STK-MED ONCE .ROUTE ; Start 11/19/16 at 12:26; Stop 11/19/16 at 12:27; Status DC Calcium Chloride 1000 mg 1,000 mg STK-MED ONCE IV ; Start 11/19/16 at 12:26; Stop 11/19/16 at 12:27; Status DC Albumin Human (Albuminar) 100 ml @ As Directed STK-MED ONCE IV ; Start at 12:26; Stop 11/19/16 at 12:27; Status DC Heparin Sodium (Porcine) 30,000 unit STK-MED ONCE .ROUTE ; Start 11/19/16 at 12: ; Stop 11/19/16 at 12:27; Status DC Magnesium Sulfate 5 gm STK-MED ONCE .ROUTE ; Start 11/19/16 at 12:26; Stop 11/19 at 12:27; Status DC Sodium Chloride 3 ml 3 ml PRN Q12HR PRN IV AFTER MEDS AND BLOOD DRAWS; Start at 13:15 Lactated Ringer's 1,000 ml @ 30 mls/hr Q24H IV Last administered on 11/19/16t 15:45; Start 11/19/16 at 13:12 Insulin Human Regular/Sodium Chloride (Novolin R Vial/ Iv Normal Saline 150ml) 151.5 ml @ 0 mls/hr CONT PRN PRN IV SEE I/O RECORD; Start 11/19/16 at 13:15 Dextrose 25 gm 25 gm PRN Q15MIN PRN IV LOW BLOOD SUGAR; Start 11/19/16 at 13:15 Nitroglycerin/ Dextrose 250 ml @ 0 mls/hr CONT PRN PRN IV SEE I/O RECORD; Start 11/19/16 at 13:15 Dopamine HCl/ Dextrose 250 ml @ 0 mls/hr CONT PRN PRN IV SEE I/O RECORD; Start 11/19/16 at 13:15 Dobutamine HCl/ Dextrose 250 ml @ 0 mls/hr CONT PRN PRN IV SEE I/O RECORD; Start 11/19/16 at 13:15 Phenylephrine HCl 20 mg/Sodium Chloride 252 ml @ 0 mls/hr CONT PRN PRN IV HYPOTENSION; Start 11/19/16 at 13:15 Epinephrine HCl/ Sodium Chloride (Adrenalin/Iv Sodium Chloride 0.9% 250ml) 254 ml @ 0 mls/hr CONT PRN PRN IV POST CV SURGERY; Start 11/19/16 at 13:15 Info 1 ea CONT PRN PRN MC SEE COMMENTS; Start 11/19/16 at 13:15 Info 1 ea 1 ea CONT PRN PRN MC SEE COMMENTS; Start 11/19/16 at 13:15 Magnesium Sulfate/ Dextrose (Magnesium Sulfate PREMIX 1GM) 100 ml @ 100 mls/hr PRN DAILY PRN IV FOR MAG < 2.2 Last administered on 11/20/16 08:28; Start at 13:15 Famotidine (Pepcid) 20 mg BID IVP Last administered on 11/20/16 08:27; Start 11/19/16 at 21:00 Ondansetron HCl (Zofran) 4 mg PRN Q4HRS PRN IV NAUSEA/VOMITING Last administered on 11/19/16 20:43; Start 11/19/16 at 13:15 Prochlorperazine Edisylate (Compazine) 10 mg PRN Q6HRS PRN IV NAUSEA/VOMITING Last administered on 11/20/16 13:10; Start 11/19/16 at 13:15 Morphine Sulfate 2 mg PRN Q1HR PRN IV PAIN Last administered on 11/19/16 15:30 ; Start 11/19/16 at 13:15 Acetaminophen (Tylenol) 650 mg PRN Q4HRS PRN PO MILD PAIN / TEMP; Start at 13:15 Acetaminophen (Acetaminophen Supp) 650 mg PRN Q4HRS PRN DC MILD PAIN / TEMP; Start 11/19/16 at 13:15 Meperidine HCl 12.5 mg 12.5 mg PRN Q15MIN PRN IV SHIVERING; Start 11/19/16 at 13:15; Stop 11/20/16 at 13:14; Status DC Propofol (Diprivan) 100 ml @ 0 mls/hr CONT PRN PRN IV POSTOP SEDATION UNTIL EXTUBATE Last administered on 11/19/16 15:47; Start 11/19/16 at 13:15 Senna/Docusate Sodium (Senna Plus) 1 tab BID PO Last administered on 11/20/16 09:26; Start 11/19/16 at 21:00 Bisacodyl (Dulcolax Supp) 10 mg PRN DAILY PRN DC NO BOWEL MOVEMENT; Start 11/19 at 13:15 Chlorhexidine Gluconate (Peridex) 15 ml BID MM ; Start 11/19/16 at 21:00; Stop 11/20/16 at 04:44; Status DC Aspirin 325 mg 325 mg [id number] PO Last administered on 11/20/16 08:26; Start 11/20/16 at 08:00 Nicardipine HCl 50 mg/Sodium Chloride 270 ml @ 0 mls/hr CONT PRN PRN IV PER PROTOCOL; Start 11/19/16 at 13:15 Clevidipine (Cleviprex) 100 ml @ 0 mls/hr CONT PRN IV PER PROTOCOL; Start 11/19 at 13:15 Acetaminophen/ Hydrocodone Bitart (Lortab 5/325) 1 tab PRN Q4HRS PRN PO MILD PAIN; Start 11/19/16 at 13:15 Acetaminophen/ Hydrocodone Bitart 2 tab 2 tab PRN Q4HRS PRN PO MODERATE PAIN, SEVERE PAIN Last administered on 11/20/16 05:43; Start 11/19/16 at 13:15 Cefazolin Sodium/ Dextrose 50 ml @ 100 mls/hr Q8H IV ; Start 11/19/16 at 13:30 ; Stop 11/20/16 at 21:59; Status UNV Potassium Chloride 50 ml @ 50 mls/hr 1X ONCE IV Last administered on 15:38; Start 11/19/16 at 15:00; Stop 11/19/16 at 15:59; Status DC Albumin Human 250 ml @ 62.5 mls/hr CONT PRN IV SEE COMMENTS Last administered on 11/19/16 15:58; Start 11/19/16 at 15:15 Phenylephrine HCl 20 mg/Sodium Chloride 252 ml @ 0 mls/hr CONT PRN IV SEE I/O RECORD Last administered on 11/19/16 16:26; Start 11/19/16 at 16:15 Vancomycin HCl/ Sodium Chloride (Iv Sodium Chloride 0.9% 500ml Bag) 500 ml @ 250 mls/hr Q12H IV Last administered on 11/20/16 08:29; Start 11/19/16 at 20: 00; Stop 11/20/16 at 21:59 Lidocaine HCl 1 ml STK-MED ONCE .ROUTE ; Start 11/19/16 at 20:47; Stop 11/19/16 at 20:48; Status DC Sodium Bicarbonate 50 meq 1X ONCE IV Last administered on 11/19/16 22:13; Start 11/19/16 at 22:30; Stop 11/19/16 at 22:31; Status DC Furosemide 40 mg 40 mg 1X ONCE IVP Last administered on 11/20/16 05:42; Start 11/20/16 at 05:00; Stop 11/20/16 at 05:01; Status DC Potassium Chloride 50 ml @ 50 mls/hr 1X ONCE IV Last administered on 09:26; Start 11/20/16 at 08:30; Stop 11/20/16 at 09:29; Status DC Potassium Chloride (KCl Premix 20meq) 50 ml @ 50 mls/hr 1X ONCE IV ; Start at 08:30; Stop 11/20/16 at 09:29; Status UNV Vancomycin HCl 1 gm STK-MED ONCE .ROUTE ; Start 11/19/16 at 07:00; Stop at 08:37; Status DC Ketorolac Tromethamine (Toradol) 15 mg 1X ONCE IV Last administered on 13:10; Start 11/20/16 at 13:00; Stop 11/20/16 at 13:03; Status DC Vitals/I & O Vital Sign - Last 24 Hours 11/19/16 11/19/16 11/19/16 11/19/16 15:00 15:00 15:30 15:30 Temp 98.8 98.8 Pulse 67 67 68 Resp 14 B/P 92/44 84/58 Pulse Ox 96 100 O2 Delivery Ventilator 11/19/16 11/19/16 11/19/16 11/19/16 15:30 16:00 16:00 16:00 Temp 98.9 98.9 98.9 98.9 Pulse 66 Resp 14 14 B/P Pulse Ox 100 100 100 O2 Delivery Ventilator Ventilator Mechanical Ventilator 11/19/16 11/19/16 11/19/16 11/19/16 16:00 16:27 17:00 17:00 Temp 99.8 99.8 Pulse 66 62 62 Resp 16 B/P 90/60 96/74 Pulse Ox 99 100 O2 Delivery Ventilator 11/19/16 11/19/16 11/19/16 11/19/16 17:05 18:00 18:00 19:00 Temp 100.0 100.0 Pulse 66 66 70 Resp 18 B/P 105/85 Pulse Ox 96 100 O2 Delivery Ventilator 11/19/16 11/19/16 11/19/16 11/19/16 19:30 19:43 20:00 20:00 Temp 100.5 100.5 Pulse 67 67 Resp 20 20 B/P 103/55 103/55 Pulse Ox 99 99 O2 Delivery Mechanical Ventilator Nasal Cannula Nasal Cannula O2 Flow Rate 2.0 11/19/16 11/19/16 11/19/16 11/19/16 20:44 20:49 21:00 21:00 Temp 100.5 100.5 Pulse 87 87 Resp 20 20 20 B/P 94/50 94/50 Pulse Ox 98 97 98 O2 Delivery Nasal Cannula Nasal Cannula Nasal Cannula O2 Flow Rate 2.0 2.0 2.0 11/19/16 11/19/16 11/19/16 11/19/16 21:15 22:00 22:00 23:00 Temp 100.4 100.4 100.4 100.4 Pulse 85 85 68 Resp 20 20 20 B/P 101/44 101/44 116/50 Pulse Ox 97 97 O2 Delivery Nasal Cannula Nasal Cannula Nasal Cannula O2 Flow Rate 2.0 2.0 2.0 11/19/16 11/20/16 11/20/16 11/20/16 23:00 00:00 00:00 00:00 Temp 100.6 100.6 Pulse 68 75 75 Resp 20 B/P 116/50 92/44 92/44 Pulse Ox 95 O2 Delivery Nasal Cannula Nasal Cannula O2 Flow Rate 2.0 2.0 11/20/16 11/20/16 11/20/16 11/20/16 01:00 01:00 01:00 02:00 Temp 100.4 100.4 Pulse 72 72 68 Resp 18 18 B/P 97/45 97/45 95/44 Pulse Ox 95 96 O2 Delivery Nasal Cannula Nasal Cannula O2 Flow Rate 2.0 2.0 411/20/16 11/20/16 11/20/16 02:00 03:00 03:00 04:00 Temp 100.5 100.4 100.5 100.4 Pulse 68 66 66 67 Resp 18 18 B/P 95/44 99/42 99/42 100/43 Pulse Ox 94 94 O2 Delivery Nasal Cannula Nasal Cannula O2 Flow Rate 2.0 2.0 11/20/16 11/20/16 11/20/16 11/20/16 04:00 04:00 05:00 05:00 Temp 100.2 100.2 Pulse 67 66 66 Resp 18 18 B/P 100/43 100/44 100/44 Pulse Ox 95 95 O2 Delivery Nasal Cannula Nasal Cannula Nasal Cannula O2 Flow Rate 2.0 2.0 2.0 11/20/16 11/20/16 11/20/16 11/20/16 05:43 06:00 06:56 07:00 Pulse 64 66 Resp 18 16 16 16 B/P 95/57 95/56 Pulse Ox 95 96 95 94 O2 Delivery Nasal Cannula Nasal Cannula Nasal Cannula Nasal Cannula O2 Flow Rate 2.0 2.0 2.0 2.0 11/20/16 11/20/16 11/20/16 11/20/16 08:00 09:00 10:00 11:00 Temp 98.3 98.3 Pulse 68 66 64 64 Resp 14 16 16 18 B/P 96/51 89/51 98/65 98/63 Pulse Ox 94 96 95 96 O2 Delivery Nasal Cannula Nasal Cannula Nasal Cannula Nasal Cannula O2 Flow Rate 2.0 2.0 2.0 2.0 Intake and Output 11/19/16 11/19/16 11/20/16 15:00 23:00 07:00 Intake Total 0 ml 1783 ml 1786 ml Output Total 673 ml 703 ml 278 ml Balance -673 ml 1080 ml 1508 ml CASTLE,NIAL K III DO Nov 20, 2016 14:46
--- NOTE | 2016-11-20 15:14 | PDOC ---
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 11/20/16 1514: CARDIO Progress Notes Date and Time Date of Service 11/20/16 Time of Evaluation 1215 Subjective Subjective: No shortness of breath, No Palpitations, Other (mild incisional pain) Vitals Vitals Vital Signs Date Time Temp Pulse Resp B/P Pulse Ox O2 Delivery O2 Flow Rate FiO2 11/20/16 11:00 64 18 98/63 96 Nasal Cannula 2.0 11/20/16 08:00 98.3 98.3 Weight Weight [ ] Input and Output Intake and Output Intake and Output 11/20/16 07:00 Intake Total 3569 ml Output Total 1654 ml Balance 1915 ml Intake Oral 600 ml IV Total 2969 ml Output Urine Total 1295 ml Chest Tube Drainage Total 359 ml Laboratory Labs Laboratory Tests Test 11/19/16 15:36 11/19/16 17:25 11/19/16 17:30 11/19/16 18:21 Glucose (Fingerstick) 114mg/dL (70-99) 144mg/dL (70-99) O2 Saturation 96% (92-99) Arterial Blood pH 7.31 (7.35-7.45) Arterial Blood pCO2 at Patient Temp 45mmHg (35-46) Arterial Blood pO2 at Patient Temp 101mmHg (65-108) Arterial Blood HCO3 22mmol/L (21-28) Arterial Blood Base Excess -4mmol/L (-3-3) FiO2 40 White Blood Count 9.3x10^3/uL (4.0-11.0) Red Blood Count 3.36x10^6/uL (3.50-5.40) Hemoglobin 10.2g/dL (12.0-15.5) Hematocrit 30.7% (36.0-47.0) Mean Corpuscular Volume 91fL (79-100) Mean Corpuscular Hemoglobin 30pg (25-35) Mean Corpuscular Hemoglobin Concent 33g/dL (31-37) Red Cell Distribution Width 13.5% (11.5-14.5) Platelet Count 136x10^3/uL (140-400) Potassium Level 5.1mmol/L (3.5-5.1) Test 11/19/16 18:49 11/19/16 19:34 11/19/16 21:32 11/19/16 21:56 O2 Saturation 96% (92-99) 94% (92-99) Arterial Blood pH 7.34 (7.35-7.45) 7.34 (7.35-7.45) Arterial Blood pCO2 at Patient Temp 44mmHg (35-46) 41mmHg (35-46) Arterial Blood pO2 at Patient Temp 97mmHg (65-108) 78mmHg (65-108) Arterial Blood HCO3 23mmol/L (21-28) 22mmol/L (21-28) Arterial Blood Base Excess -3mmol/L (-3-3) -4mmol/L (-3-3) FiO2 40 28 Glucose (Fingerstick) 125mg/dL (70-99) 100mg/dL (70-99) Test 11/19/16 23:00 11/20/16 00:26 11/20/16 05:00 11/20/16 05:04 O2 Saturation 94% (92-99) Arterial Blood pH 7.38 (7.35-7.45) Arterial Blood pCO2 at Patient Temp 43mmHg (35-46) Arterial Blood pO2 at Patient Temp 74mmHg (65-108) Arterial Blood HCO3 25mmol/L (21-28) Arterial Blood Base Excess -1mmol/L (-3-3) FiO2 28 Glucose (Fingerstick) 124mg/dL (70-99) 121mg/dL (70-99) White Blood Count 6.6x10^3/uL (4.0-11.0) Red Blood Count 3.13x10^6/uL (3.50-5.40) Hemoglobin 9.7g/dL (12.0-15.5) Hematocrit 28.0% (36.0-47.0) Mean Corpuscular Volume 89fL (79-100) Mean Corpuscular Hemoglobin 31pg (25-35) Mean Corpuscular Hemoglobin Concent 35g/dL (31-37) Red Cell Distribution Width 13.4% (11.5-14.5) Platelet Count 122x10^3/uL (140-400) Prothrombin Time 15.8SEC (11.7-14.0) Prothromb Time International Ratio 1.3 (0.8-1.1) Sodium Level 141mmol/L (136-145) Potassium Level 4.4mmol/L (3.5-5.1) Chloride Level 109mmol/L (98-107) Carbon Dioxide Level 27mmol/L (21-32) Anion Gap 5 (6-14) Blood Urea Nitrogen 14mg/dL (7-20) Creatinine 0.9mg/dL (0.6-1.0) Estimated GFR (Cockcroft-Gault) 62.6 Glucose Level 125mg/dL (70-99) Calcium Level 8.1mg/dL (8.5-10.1) Magnesium Level 1.9mg/dL (1.8-2.4) Creatine Kinase 412U/L (26-192) Test 11/20/16 07:33 Glucose (Fingerstick) 119mg/dL (70-99) Physical Exam HEENT: Neck Supple W Full Motion Chest: Symmetric, Other (pleural tube intact. Sternal drsg CDI) LUNGS: Clear to Auscultation Heart: S1S2, RRR, other (tele: SR with periods of SA) Abdomen: Soft N/T Extremities: Other (trace hand edema, SIDNEY wrap to LLE) Neurology: alert, oriented, follow commands Assessment Assessment 1. NSTEMI; 2D echo with preserved LV function with an EF of 55-60%. 2. CAD s/p CABG with GUZMÁN to LAD and SVG to OM. POD#1. 3. Post-op anemia; hgb 9.7 4. Dyslipidemia; LDL 115 5. GERD Recommendations BB when BP consistently adequate Add statin therapy Continue supportive care Post-op management per CTS. JUSTIN AGUILERA MD 11/20/162032: CARDIO Progress Notes Assessment Assessment Patient seen and examined. Agree with [employer]'s assessment and plan Tele did not show any significant arrhythmias Continue post op care per CTS CARMELA ADDISON APRN Nov 20, 2016 15:14 JUSTIN AGUILERA MD Nov 20, 2016 20:33
--- NOTE | 2016-11-20 16:11 | PDOC ---
Progress Note Subjective Subjective Fast track extubation yesterday. She continues to progress very well, out of bed to the chair since this morning. Normotensive and in sinus rhythm. Excellent urine output. Minimal chest tube drainage. Chest x-ray and labs look great. ROS ROS No nausea No vomiting No significant pain No rash Vital Sign Vital Signs Vital Signs Date Time Temp Pulse Resp B/P Pulse Ox O2 Delivery O2 Flow Rate FiO2 11/20/16 11:00 64 18 98/63 96 Nasal Cannula 2.0 11/20/16 08:00 98.3 98.3 Physical Exam PHYSICAL EXAM General: Alert, cooperative, no distress Heart: Regular rate, Normal S1, Normal S2, dressing and drains in place, clean , dry, and intact. Lungs: Clear Abdomen: Soft, No tenderness Extremities: No clubbing, No edema, Normal pulses Skin: No rashes, No breakdown Labs Lab Laboratory Tests Test 11/19/16 17:25 11/19/16 17:30 11/19/16 18:21 11/19/16 18:49 O2 Saturation 96% (92-99) 96% (92-99) Arterial Blood pH 7.31 (7.35-7.45) 7.34 (7.35-7.45) Arterial Blood pCO2 at Patient Temp 45mmHg (35-46) 44mmHg (35-46) Arterial Blood pO2 at Patient Temp 101mmHg (65-108) 97mmHg (65-108) Arterial Blood HCO3 22mmol/L (21-28) 23mmol/L (21-28) Arterial Blood Base Excess -4mmol/L (-3-3) -3mmol/L (-3-3) FiO2 40 40 White Blood Count 9.3x10^3/uL (4.0-11.0) Red Blood Count 3.36x10^6/uL (3.50-5.40) Hemoglobin 10.2g/dL (12.0-15.5) Hematocrit 30.7% (36.0-47.0) Mean Corpuscular Volume 91fL (79-100) Mean Corpuscular Hemoglobin 30pg (25-35) Mean Corpuscular Hemoglobin Concent 33g/dL (31-37) Red Cell Distribution Width 13.5% (11.5-14.5) Platelet Count 136x10^3/uL (140-400) Potassium Level 5.1mmol/L (3.5-5.1) Glucose (Fingerstick) 144mg/dL (70-99) Test 11/19/16 19:34 11/19/16 21:32 11/19/16 21:56 11/19/16 23:00 Glucose (Fingerstick) 125mg/dL (70-99) 100mg/dL (70-99) O2 Saturation 94% (92-99) 94% (92-99) Arterial Blood pH 7.34 (7.35-7.45) 7.38 (7.35-7.45) Arterial Blood pCO2 at Patient Temp 41mmHg (35-46) 43mmHg (35-46) Arterial Blood pO2 at Patient Temp 78mmHg (65-108) 74mmHg (65-108) Arterial Blood HCO3 22mmol/L (21-28) 25mmol/L (21-28) Arterial Blood Base Excess -4mmol/L (-3-3) -1mmol/L (-3-3) FiO2 28 Test 11/20/16 00:26 11/20/16 05:00 11/20/16 05:04 11/20/16 07:33 Glucose (Fingerstick) 124mg/dL (70-99) 121mg/dL (70-99) 119mg/dL (70-99) White Blood Count 6.6x10^3/uL (4.0-11.0) Red Blood Count 3.13x10^6/uL (3.50-5.40) Hemoglobin 9.7g/dL (12.0-15.5) Hematocrit 28.0% (36.0-47.0) Mean Corpuscular Volume 89fL (79-100) Mean Corpuscular Hemoglobin 31pg (25-35) Mean Corpuscular Hemoglobin Concent 35g/dL (31-37) Red Cell Distribution Width 13.4% (11.5-14.5) Platelet Count 122x10^3/uL (140-400) Prothrombin Time 15.8SEC (11.7-14.0) Prothromb Time International Ratio 1.3 (0.8-1.1) Sodium Level 141mmol/L (136-145) Potassium Level 4.4mmol/L (3.5-5.1) Chloride Level 109mmol/L (98-107) Carbon Dioxide Level 27mmol/L (21-32) Anion Gap 5 (6-14) Blood Urea Nitrogen 14mg/dL (7-20) Creatinine 0.9mg/dL (0.6-1.0) Estimated GFR (Cockcroft-Gault) 62.6 Glucose Level 125mg/dL (70-99) Calcium Level 8.1mg/dL (8.5-10.1) Magnesium Level 1.9mg/dL (1.8-2.4) Creatine Kinase 412U/L (26-192) Objective Assessment POD#1, s/p CABG x 2 (GUZMÁN to LAD, SVG to OM). Fast track extubation yesterday. Doing very well this morning. Normotensive and in sinus rhythm. Minimal chest tube output. Excellent urine output. Labs and chest x-ray as expected. Plan Plan of Care D/c a-line D/c [place] D/c mediastinal tubes Start diuresis with Lasix 20 mg IV twice daily ASA and statin No beta hilda for now, patient's heart rate in the 60s and blood pressure in the 90s Ambulation and aggressive pulmonary toilet DAVID CHAMPAGNE MD Nov 20, 2016 16:11
[2016-11-20] MEDS: FUROSEMIDE 20 MG/2 ML VIAL. IVP SCH (19:35)
[2016-11-20] MEDS: IV RINGERS,LACTATED 1000ML 1,000 ML IV SCH (19:36)
[2016-11-20] MEDS: ATORVASTATIN CALCIUM 40 MG TABLET. PO SCH (21:11)
[2016-11-21] VITALS (17 sets, daily range): BP systolic 86–133; BP diastolic 56–75
[2016-11-21] MEDS: ACETAMINOPHEN 325 MG TABLET. PO PRN ×4 (02:55→16:53)
[2016-11-21 07:29] LABS: CALCIUM 8.1 mg/dL (8.5-10.1)
[2016-11-21 07:30] LABS: CREATININE 0.9 mg/dL (0.6-1.0); GFR 62.6; POTASSIUM 3.8 mmol/L (3.5-5.1)
[2016-11-21] MEDS: PANTOPRAZOLE 40 MG TABLET.DR. PO SCH (07:30)
[2016-11-21 07:50] LABS: BASO % 0 % (0-3); EOS % 0 % (0-3); HEMATOCRIT 28.7 % (36.0-47.0); HEMOGLOBIN 9.5 g/dL (12.0-15.5); LYMPH # 0.6 x10^3/uL (1.0-4.8); LYMPH % 7 % (24-48); MEAN CORPUSCULAR HEMOGLOBIN 30 pg (25-35); MEAN CORPUSCULAR HGB CONC 33 g/dL (31-37); MEAN CORPUSCULAR VOLUME 92 fL (79-100); MONO % 9 % (0-9); NEUT % 83 % (31-73); PLATELET COUNT 87 x10^3/uL (140-400); RED BLOOD COUNT 3.12 x10^6/uL (3.50-5.40); RED CELL DISTRIBUTION WIDTH 13.3 % (11.5-14.5); WHITE BLOOD COUNT 8.4 x10^3/uL (4.0-11.0)
[2016-11-21] MEDS: SENNOSIDES/DOCUSATE 8.6/50MG TABLET. PO SCH ×2 (09:45→21:56)
[2016-11-21] MEDS: DOCUSATE SODIUM 100 MG CAPSULE. PO SCH (09:45)
[2016-11-21] MEDS: ASPIRIN ENTERIC COATED 325 MG TABLET.DR. PO SCH (09:45)
[2016-11-21] MEDS: FUROSEMIDE 20 MG/2 ML VIAL. IVP SCH ×2 (09:45→18:00)
[2016-11-21] MEDS: FAMOTIDINE 20 MG TABLET. PO SCH ×2 (09:46→21:57)
--- NOTE | 2016-11-21 11:35 | RAD ---
Portable AP upright chest x-ray performed at 0415 History: Postoperative follow-up Comparison: November 20, 2016. IMPRESSION: Right IJ central line is unchanged in position.1 left-sided chest tube remains. No pneumothorax is seen. Small left-sided pleural effusion and associated left lung base atelectasis is unchanged. Right lung field is clear. No parahilar pulmonary edema is seen. Sternotomy is evident. The heart size and mediastinum are stable.
--- NOTE | 2016-11-21 13:56 | PDOC ---
Progress Note Subjective Subjective Doing excellent, no issues. Normotensive and in sinus rhythm. Excellent urine output. Minimal pleural tube drainage. Chest x-ray and labs look great. Ambulating, minimal pain. ROS ROS No nausea No vomiting No SOB No pain No rash Vital Sign Vital Signs Vital Signs Date Time Temp Pulse Resp B/P Pulse Ox O2 Delivery O2 Flow Rate FiO2 11/21/16 08:00 Nasal Cannula 2.0 11/21/16 07:00 71 14 115/66 97 11/21/16 04:00 98.2 98.2 Physical Exam PHYSICAL EXAM General: Alert, cooperative, no distress Heart: Regular rate, Normal S1, Normal S2, dressing and drains in place, clean , dry, and intact. Lungs: Clear Abdomen: Soft, No tenderness Extremities: No clubbing, No edema, Normal pulses Skin: No rashes, No breakdown Labs Lab Laboratory Tests Test 11/20/16 17:29 11/21/16 06:20 Glucose (Fingerstick) 125mg/dL (70-99) White Blood Count 8.4x10^3/uL (4.0-11.0) Red Blood Count 3.12x10^6/uL (3.50-5.40) Hemoglobin 9.5g/dL (12.0-15.5) Hematocrit 28.7% (36.0-47.0) Mean Corpuscular Volume 92fL (79-100) Mean Corpuscular Hemoglobin 30pg (25-35) Mean Corpuscular Hemoglobin Concent 33g/dL (31-37) Red Cell Distribution Width 13.3% (11.5-14.5) Platelet Count 87x10^3/uL (140-400) Neutrophils (%) (Auto) 83% (31-73) Lymphocytes (%) (Auto) 7% (24-48) Monocytes (%) (Auto) 9% (0-9) Eosinophils (%) (Auto) 0% (0-3) Basophils (%) (Auto) 0% (0-3) Neutrophils # (Auto) 7.0x10^3uL (1.8-7.7) Lymphocytes # (Auto) 0.6x10^3/uL (1.0-4.8) Monocytes # (Auto) 0.7x10^3/uL (0.0-1.1) Eosinophils # (Auto) 0.0x10^3/uL (0.0-0.7) Basophils # (Auto) 0.0x10^3/uL (0.0-0.2) Sodium Level 139mmol/L (136-145) Potassium Level 3.8mmol/L (3.5-5.1) Chloride Level 107mmol/L (98-107) Carbon Dioxide Level 27mmol/L (21-32) Anion Gap 5 (6-14) Blood Urea Nitrogen 18mg/dL (7-20) Creatinine 0.9mg/dL (0.6-1.0) Estimated GFR (Cockcroft-Gault) 62.6 Glucose Level 117mg/dL (70-99) Calcium Level 8.1mg/dL (8.5-10.1) Magnesium Level 2.2mg/dL (1.8-2.4) Objective Assessment POD#2, s/p CABG x 2 (GUZMÁN to LAD, SVG to OM). Doing excellent, no issues. Normotensive and in sinus rhythm. Excellent urine output. Minimal pleural tube drainage. Chest x-ray and labs look great. Ambulating, minimal pain. Plan Plan of Care D/c pleural tube D/c cordis D/c reed Continue diuresis with Lasix 20 mg IV twice daily ASA and statin Start low dose b-hilda Ambulation and aggressive pulmonary toilet Transfer to stepdown DAVID CHAMPAGNE MD Nov 21, 2016 13:56
[2016-11-21] MEDS ORDERED: TRAMADOL 50 MG TABLET. PO PRN (14:00)
--- NOTE | 2016-11-21 14:44 | PDOC ---
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 Ellington was lying in bed when we visited her. She had family present with her and we discussed her case with them as well. She reports she still has pain associated with her CABG, but it is well controlled with acetaminophen only. She had a Pleur Evac present, as well as a reed and a Monroe-Leland catheter. Potassium chloride, phenylephrine, sodium chloride, and lactase were hanging from her IV rack. Vitals Vitals Vital Signs Date Time Temp Pulse Resp B/P Pulse Ox O2 Delivery O2 Flow Rate FiO2 11/21/16 08:00 Nasal Cannula 2.0 11/21/16 07:00 71 14 115/66 97 11/21/16 04:00 98.2 98.2 Physical Exam General: Alert, Cooperative Heart: Normal S1, Normal S2, No murmurs Lungs: Clear, Other (No chest retractions or other signs of acute distress were present. ) Abdomen: Soft, No masses Extremities: No clubbing, Normal pulses Skin: No rashes, Other (The dressing and drains were clean, dry, and intact. ) Labs LABS Laboratory Tests Test 11/20/16 17:29 11/21/16 06:20 Glucose (Fingerstick) 125mg/dL (70-99) White Blood Count 8.4x10^3/uL (4.0-11.0) Red Blood Count 3.12x10^6/uL (3.50-5.40) Hemoglobin 9.5g/dL (12.0-15.5) Hematocrit 28.7% (36.0-47.0) Mean Corpuscular Volume 92fL (79-100) Mean Corpuscular Hemoglobin 30pg (25-35) Mean Corpuscular Hemoglobin Concent 33g/dL (31-37) Red Cell Distribution Width 13.3% (11.5-14.5) Platelet Count 87x10^3/uL (140-400) Neutrophils (%) (Auto) 83% (31-73) Lymphocytes (%) (Auto) 7% (24-48) Monocytes (%) (Auto) 9% (0-9) Eosinophils (%) (Auto) 0% (0-3) Basophils (%) (Auto) 0% (0-3) Neutrophils # (Auto) 7.0x10^3uL (1.8-7.7) Lymphocytes # (Auto) 0.6x10^3/uL (1.0-4.8) Monocytes # (Auto) 0.7x10^3/uL (0.0-1.1) Eosinophils # (Auto) 0.0x10^3/uL (0.0-0.7) Basophils # (Auto) 0.0x10^3/uL (0.0-0.2) Sodium Level 139mmol/L (136-145) Potassium Level 3.8mmol/L (3.5-5.1) Chloride Level 107mmol/L (98-107) Carbon Dioxide Level 27mmol/L (21-32) Anion Gap 5 (6-14) Blood Urea Nitrogen 18mg/dL (7-20) Creatinine 0.9mg/dL (0.6-1.0) Estimated GFR (Cockcroft-Gault) 62.6 Glucose Level 117mg/dL (70-99) Calcium Level 8.1mg/dL (8.5-10.1) Magnesium Level 2.2mg/dL (1.8-2.4) Review of Systems Review of Systems The patient has not had problems with nausea or vomiting. She does not have any other pain other than that associated with her recent CABG. Assessment and Plan Assessmemt and Plan Assessment: Ms. Ellington is a 66 year old female who presented with chest pain. 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 Imaging noted 2. Continue pain management with acetaminophen 3. Continue to treat symptomatic GERD with famotidine 4. Continue atorvastatin and aspirin per cardiology 5. Continue diuresis per cardiothoracic surgery 6. PT/OT 7. Recheck labs 8. Monitor anemia and consider iron studies if continue to decline 9. Appreciate subspecialists' input Problems: Comment Review of Relevant I have reviewed the following items melva (where applicable) has been applied. Labs Laboratory Tests Test 11/19/16 15:36 11/19/16 17:25 11/19/16 17:30 11/19/16 18:21 Glucose (Fingerstick) 114mg/dL (70-99) 144mg/dL (70-99) O2 Saturation 96% (92-99) Arterial Blood pH 7.31 (7.35-7.45) Arterial Blood pCO2 at Patient Temp 45mmHg (35-46) Arterial Blood pO2 at Patient Temp 101mmHg (65-108) Arterial Blood HCO3 22mmol/L (21-28) Arterial Blood Base Excess -4mmol/L (-3-3) FiO2 40 White Blood Count 9.3x10^3/uL (4.0-11.0) Red Blood Count 3.36x10^6/uL (3.50-5.40) Hemoglobin 10.2g/dL (12.0-15.5) Hematocrit 30.7% (36.0-47.0) Mean Corpuscular Volume 91fL (79-100) Mean Corpuscular Hemoglobin 30pg (25-35) Mean Corpuscular Hemoglobin Concent 33g/dL (31-37) Red Cell Distribution Width 13.5% (11.5-14.5) Platelet Count 136x10^3/uL (140-400) Potassium Level 5.1mmol/L (3.5-5.1) Test 11/19/16 18:49 11/19/16 19:34 11/19/16 21:32 11/19/16 21:56 O2 Saturation 96% (92-99) 94% (92-99) Arterial Blood pH 7.34 (7.35-7.45) 7.34 (7.35-7.45) Arterial Blood pCO2 at Patient Temp 44mmHg (35-46) 41mmHg (35-46) Arterial Blood pO2 at Patient Temp 97mmHg (65-108) 78mmHg (65-108) Arterial Blood HCO3 23mmol/L (21-28) 22mmol/L (21-28) Arterial Blood Base Excess -3mmol/L (-3-3) -4mmol/L (-3-3) FiO2 40 28 Glucose (Fingerstick) 125mg/dL (70-99) 100mg/dL (70-99) Test 11/19/16 23:00 11/20/16 00:26 11/20/16 05:00 11/20/16 05:04 O2 Saturation 94% (92-99) Arterial Blood pH 7.38 (7.35-7.45) Arterial Blood pCO2 at Patient Temp 43mmHg (35-46) Arterial Blood pO2 at Patient Temp 74mmHg (65-108) Arterial Blood HCO3 25mmol/L (21-28) Arterial Blood Base Excess -1mmol/L (-3-3) FiO2 28 Glucose (Fingerstick) 124mg/dL (70-99) 121mg/dL (70-99) White Blood Count 6.6x10^3/uL (4.0-11.0) Red Blood Count 3.13x10^6/uL (3.50-5.40) Hemoglobin 9.7g/dL (12.0-15.5) Hematocrit 28.0% (36.0-47.0) Mean Corpuscular Volume 89fL (79-100) Mean Corpuscular Hemoglobin 31pg (25-35) Mean Corpuscular Hemoglobin Concent 35g/dL (31-37) Red Cell Distribution Width 13.4% (11.5-14.5) Platelet Count 122x10^3/uL (140-400) Prothrombin Time 15.8SEC (11.7-14.0) Prothromb Time International Ratio 1.3 (0.8-1.1) Sodium Level 141mmol/L (136-145) Potassium Level 4.4mmol/L (3.5-5.1) Chloride Level 109mmol/L (98-107) Carbon Dioxide Level 27mmol/L (21-32) Anion Gap 5 (6-14) Blood Urea Nitrogen 14mg/dL (7-20) Creatinine 0.9mg/dL (0.6-1.0) Estimated GFR (Cockcroft-Gault) 62.6 Glucose Level 125mg/dL (70-99) Calcium Level 8.1mg/dL (8.5-10.1) Magnesium Level 1.9mg/dL (1.8-2.4) Creatine Kinase 412U/L (26-192) Test 11/20/16 07:33 11/20/16 17:29 11/21/16 06:20 Glucose (Fingerstick) 119mg/dL (70-99) 125mg/dL (70-99) White Blood Count 8.4x10^3/uL (4.0-11.0) Red Blood Count 3.12x10^6/uL (3.50-5.40) Hemoglobin 9.5g/dL (12.0-15.5) Hematocrit 28.7% (36.0-47.0) Mean Corpuscular Volume 92fL (79-100) Mean Corpuscular Hemoglobin 30pg (25-35) Mean Corpuscular Hemoglobin Concent 33g/dL (31-37) Red Cell Distribution Width 13.3% (11.5-14.5) Platelet Count 87x10^3/uL (140-400) Neutrophils (%) (Auto) 83% (31-73) Lymphocytes (%) (Auto) 7% (24-48) Monocytes (%) (Auto) 9% (0-9) Eosinophils (%) (Auto) 0% (0-3) Basophils (%) (Auto) 0% (0-3) Neutrophils # (Auto) 7.0x10^3uL (1.8-7.7) Lymphocytes # (Auto) 0.6x10^3/uL (1.0-4.8) Monocytes # (Auto) 0.7x10^3/uL (0.0-1.1) Eosinophils # (Auto) 0.0x10^3/uL (0.0-0.7) Basophils # (Auto) 0.0x10^3/uL (0.0-0.2) Sodium Level 139mmol/L (136-145) Potassium Level 3.8mmol/L (3.5-5.1) Chloride Level 107mmol/L (98-107) Carbon Dioxide Level 27mmol/L (21-32) Anion Gap 5 (6-14) Blood Urea Nitrogen 18mg/dL (7-20) Creatinine 0.9mg/dL (0.6-1.0) Estimated GFR (Cockcroft-Gault) 62.6 Glucose Level 117mg/dL (70-99) Calcium Level 8.1mg/dL (8.5-10.1) Magnesium Level 2.2mg/dL (1.8-2.4) Laboratory Tests Test 11/20/16 17:29 11/21/16 06:20 Glucose (Fingerstick) 125mg/dL (70-99) White Blood Count 8.4x10^3/uL (4.0-11.0) Red Blood Count 3.12x10^6/uL (3.50-5.40) Hemoglobin 9.5g/dL (12.0-15.5) Hematocrit 28.7% (36.0-47.0) Mean Corpuscular Volume 92fL (79-100) Mean Corpuscular Hemoglobin 30pg (25-35) Mean Corpuscular Hemoglobin Concent 33g/dL (31-37) Red Cell Distribution Width 13.3% (11.5-14.5) Platelet Count 87x10^3/uL (140-400) Neutrophils (%) (Auto) 83% (31-73) Lymphocytes (%) (Auto) 7% (24-48) Monocytes (%) (Auto) 9% (0-9) Eosinophils (%) (Auto) 0% (0-3) Basophils (%) (Auto) 0% (0-3) Neutrophils # (Auto) 7.0x10^3uL (1.8-7.7) Lymphocytes # (Auto) 0.6x10^3/uL (1.0-4.8) Monocytes # (Auto) 0.7x10^3/uL (0.0-1.1) Eosinophils # (Auto) 0.0x10^3/uL (0.0-0.7) Basophils # (Auto) 0.0x10^3/uL (0.0-0.2) Sodium Level 139mmol/L (136-145) Potassium Level 3.8mmol/L (3.5-5.1) Chloride Level 107mmol/L (98-107) Carbon Dioxide Level 27mmol/L (21-32) Anion Gap 5 (6-14) Blood Urea Nitrogen 18mg/dL (7-20) Creatinine 0.9mg/dL (0.6-1.0) Estimated GFR (Cockcroft-Gault) 62.6 Glucose Level 117mg/dL (70-99) Calcium Level 8.1mg/dL (8.5-10.1) Magnesium Level 2.2mg/dL (1.8-2.4) Medications Current Medications Acetaminophen (Tylenol) 650 mg PRN Q6HRS PRN PO PAIN Last administered on 12:33; Start 11/17/16 at 10:00; Stop 11/20/16 at 16:15; Status DC Ondansetron HCl (Zofran) 4 mg PRN Q6HRS PRN IV NAUSEA/VOMITING Last administered on 11/18/16 14:01; Start 11/17/16 at 10:15; Stop 11/19/16 at 08:57 ; Status DC Pantoprazole Sodium (Protonix) 40 mg DAILYAC PO Last administered on 11/20/16 08:26; Start 11/18/16 at 07:30 Regadenoson (Lexiscan) 0.4 mg 1X ONCE IV Last administered on 11/17/16 11:45 ; Start 11/17/16 at 11:15; Stop 11/17/16 at 11:16; Status DC Aspirin (Ecotrin) 325 mg 1X ONCE PO Last administered on 11/18/16 00:06; Start 11/17/16 at 23:30; Stop 11/17/16 at 23:31; Status DC Iohexol 100 ml 100 ml STK-MED ONCE .ROUTE ; Start 11/18/16 at 10:16; Stop at 10:17; Status DC Heparin Sodium/ Sodium Chloride 1,000 ml @ As Directed STK-MED ONCE .ROUTE ; Start 11/18/16 at 10:16; Stop 11/18/16 at 10:17; Status DC Lidocaine HCl 20 ml STK-MED ONCE .ROUTE ; Start 11/18/16 at 10:16; Stop at 10:17; Status DC Nitroglycerin (Nitroglycerin) 200 mcg STK-MED ONCE .ROUTE ; Start 11/18/16 at 10 :57; Stop 11/18/16 at 10:58; Status DC Verapamil HCl (Verapamil) 5 mg STK-MED ONCE .ROUTE ; Start 11/18/16 at 10:57; Stop 11/18/16 at 10:58; Status DC Midazolam HCl (Versed) 5 mg STK-MED ONCE .ROUTE ; Start 11/18/16 at 10:57; Stop 11/18/16 at 10:58; Status DC Fentanyl Citrate (Fentanyl 5ml Vial) 250 mcg STK-MED ONCE .ROUTE ; Start at 10:57; Stop 11/18/16 at 10:58; Status DC Heparin Sodium (Porcine) (Heparin Sodium) 10,000 unit STK-MED ONCE .ROUTE ; Start 11/18/16 at 10:57; Stop 11/18/16 at 10:58; Status DC Nitroglycerin (Nitroglycerin) 200 mcg 1X ONCE IART Last administered on 11:34; Start 11/18/16 at 11:30; Stop 11/18/16 at 11:31; Status DC Verapamil HCl (Verapamil) 2.5 mg 1X ONCE IART Last administered on 11/18/16 11:34; Start 11/18/16 at 11:30; Stop 11/18/16 at 11:31; Status DC Heparin Sodium (Porcine) (Heparin Sodium) 2,500 unit 1X ONCE IART Last administered on 11/18/16 11:41; Start 11/18/16 at 11:30; Stop 11/18/16 at 11:31 ; Status DC Heparin Sodium/ Sodium Chloride 1,000 unit 1X ONCE IART Last administered on 11:34; Start 11/18/16 at 11:30; Stop 11/18/16 at 11:31; Status DC Midazolam HCl (Versed) 5 mg 1X ONCE IV Last administered on 11/18/16 11:33; Start 11/18/16 at 11:30; Stop 11/18/16 at 11:31; Status DC Fentanyl Citrate (Fentanyl 5ml Vial) 250 mcg 1X ONCE IV Last administered on 11:33; Start 11/18/16 at 11:30; Stop 11/18/16 at 11:31; Status DC Iohexol (Omnipaque 300 Mg/ml) 100 ml 1X ONCE IART Last administered on 11:34; Start 11/18/16 at 11:30; Stop 11/18/16 at 11:31; Status DC Lidocaine HCl 20 ml 20 ml 1X ONCE IJ Last administered on 11/18/16 11:34; Start 11/18/16 at 11:30; Stop 11/18/16 at 11:31; Status DC Sodium Chloride (Iv Sodium Chloride 0.45%) 1,000 ml @ 60 mls/hr [id number] IV Last administered on 11/19/16 04:33; Start 11/18/16 at 11:54; Stop 11/20/16 at 19:39; Status DC Nitroglycerin 0.4 mg 0.4 mg PRN Q5MIN PRN SL CHEST PAIN; Start 11/18/16 at 12: 00 Magnesium Sulfate/ Dextrose (Magnesium Sulfate PREMIX 2GM) 50 ml @ 25 mls/hr 1X ONCE IV Last administered on 11/18/16 16:14; Start 11/18/16 at 14:00; Stop 11/18/16 at 15:59; Status DC Potassium Chloride (Klor-Con) 20 meq 1X ONCE PO ; Start 11/18/16 at 13:45; Stop 11/18/16 at 13:46; Status DC Ondansetron HCl (Zofran) 4 mg PRN Q8HRS PRN IV NAUSEA/VOMITING Last administered on 11/20/16 09:08; Start 11/18/16 at 13:45 Docusate Sodium (Colace) 100 mg DAILY PO Last administered on 11/21/16 09:45; Start 11/18/16 at 14:00 Polyethylene Glycol (miraLAX PACKET) 17 gm PRN DAILY PRN PO CONSTIPATION; Start 11/18/16 at 13:45 Iohexol (Omnipaque 300 Mg/ml) 75 ml 1X ONCE IV ; Start 11/18/16 at 15:00; Stop 11/18/16 at 15:01; Status DC Info (Do NOT chart on this entry -- for MONITORING) 1 each PRN DAILY PRN MC SEE COMMENTS; Start 11/18/16 at 15:00; Stop 11/20/16 at 14:59; Status DC Prochlorperazine Edisylate 10 mg 10 mg 1X ONCE IV Last administered on 15:45; Start 11/18/16 at 15:45; Stop 11/18/16 at 15:47; Status DC Potassium Chloride 70 meq/ Sodium Bicarbonate 12.5 meq/Lidocaine HCl 24 ml/ Parenteral Electrolytes 571.5 ml @ 571.5 mls/ hr 1X PERIOP ONCE IRR ; Start at 06:00; Stop 11/19/16 at 06:59; Status DC Potassium Chloride 15 meq/ Sodium Bicarbonate 12.5 meq/Parenteral Electrolytes 520 ml @ 520 mls/hr 1X PERIOP ONCE IRR ; Start 11/19/16 at 06:00; Stop at 06:59; Status DC Heparin Sodium (Porcine) 74819 unit/Lactated Ringer's 1,020 ml @ 1,020 mls/hr 1X PERIOP ONCE IRR Last administered on 11/19/16 08:42; Start 11/19/16 at 06: 00; Stop 11/19/16 at 06:59; Status DC Cefazolin Sodium/ Sodium Chloride (Ancef/Iv Sodium Chloride 0.9% 500ml Bag) 500 ml @ 500 mls/hr 1X PERIOP ONCE IRR Last administered on 11/19/16 08:42; Start 11/19/16 at 06:00; Stop 11/19/16 at 06:59; Status DC Midazolam HCl (Versed) 2 mg STK-MED ONCE .ROUTE ; Start 11/19/16 at 06:33; Stop 11/19/16 at 06:34; Status DC Rocuronium Renick (Zemuron) 100 mg STK-MED ONCE .ROUTE ; Start 11/19/16 at 06: 33; Stop 11/19/16 at 06:34; Status DC Sufentanil Citrate (Sufenta) 100 mcg STK-MED ONCE .ROUTE ; Start 11/19/16 at 06: 33; Stop 11/19/16 at 06:34; Status DC Isoflurane 90 ml 90 ml STK-MED ONCE IH ; Start 11/19/16 at 06:35; Stop 11/19/16 at 06:36; Status DC Nitroglycerin/ Dextrose (Nitroglycerin Drip) 250 ml @ As Directed STK-MED ONCE IV ; Start 11/19/16 at 06:35; Stop 11/19/16 at 06:36; Status DC Aminocaproic Acid (Amicar) 5,000 mg STK-MED ONCE IV ; Start 11/19/16 at 06:35; Stop 11/19/16 at 06:36; Status DC Aminocaproic Acid (Amicar) 5,000 mg STK-MED ONCE IV ; Start 11/19/16 at 06:35; Stop 11/19/16 at 06:36; Status DC Aminocaproic Acid (Amicar) 5,000 mg STK-MED ONCE IV ; Start 11/19/16 at 06:35; Stop 11/19/16 at 06:36; Status DC Etomidate (Amidate) 20 mg STK-MED ONCE IV ; Start 11/19/16 at 06:35; Stop at 06:36; Status DC Lidocaine HCl (Lidocaine HCl 2% Abboject) 100 mg STK-MED ONCE .ROUTE ; Start at 06:35; Stop 11/19/16 at 06:36; Status DC Phenylephrine HCl (Ron-Synephrine Inj) 10 mg STK-MED ONCE .ROUTE ; Start at 06:35; Stop 11/19/16 at 06:36; Status DC Phenylephrine HCl (Ron-Synephrine Inj) 10 mg STK-MED ONCE .ROUTE ; Start at 06:35; Stop 11/19/16 at 06:36; Status DC Phenylephrine HCl (Ron-Synephrine Inj) 10 mg STK-MED ONCE .ROUTE ; Start at 06:35; Stop 11/19/16 at 06:36; Status DC Heparin Sodium (Porcine) (Heparin Sodium) 10,000 unit STK-MED ONCE .ROUTE ; Start 11/19/16 at 06:35; Stop 11/19/16 at 06:36; Status DC Heparin Sodium (Porcine) (Heparin Sodium) 10,000 unit STK-MED ONCE .ROUTE ; Start 11/19/16 at 06:35; Stop 11/19/16 at 06:36; Status DC Heparin Sodium (Porcine) (Heparin Sodium) 10,000 unit STK-MED ONCE .ROUTE ; Start 11/19/16 at 06:35; Stop 11/19/16 at 06:36; Status DC Heparin Sodium (Porcine) (Heparin Sodium) 10,000 unit STK-MED ONCE .ROUTE ; Start 11/19/16 at 06:35; Stop 11/19/16 at 06:36; Status DC Ephedrine Sulfate 50 mg STK-MED ONCE IV ; Start 11/19/16 at 06:36; Stop at 06:37; Status DC Lidocaine HCl 1 ml STK-MED ONCE .ROUTE ; Start 11/19/16 at 06:39; Stop 11/19/16 at 06:40; Status DC Cellulose 1 each STK-MED ONCE .ROUTE Last administered on 11/19/16 08:42; Start 11/19/16 at 06:57; Stop 11/19/16 at 06:58; Status DC Vancomycin HCl (Vanco) 10 gm STK-MED ONCE .ROUTE Last administered on 08:42; Start 11/19/16 at 06:57; Stop 11/19/16 at 06:58; Status DC Papaverine HCl 60 mg STK-MED ONCE .ROUTE Last administered on 11/19/16 08:42; Start 11/19/16 at 06:57; Stop 11/19/16 at 06:58; Status DC Aspirin (Aspirin) 300 mg STK-MED ONCE .ROUTE Last administered on 11/19/16 13: 06; Start 11/19/16 at 06:58; Stop 11/19/16 at 06:59; Status DC Sodium Chloride 50 ml 50 ml STK-MED ONCE IJ Last administered on 11/19/16 08: 42; Start 11/19/16 at 06:58; Stop 11/19/16 at 06:59; Status DC Vancomycin HCl 250 ml @ As Directed STK-MED ONCE .ROUTE ; Start 11/19/16 at 07: 07; Stop 11/19/16 at 07:08; Status DC Lactated Ringer's 1,000 ml @ 75 mls/hr [id number] IV Last administered on 07:36; Start 11/19/16 at 07:30; Stop 11/20/16 at 19:39; Status DC Vancomycin HCl 250 ml @ 250 mls/hr 1X PREOP IV ; Start 11/19/16 at 08:00; Stop 11/20/16 at 07:59; Status DC Glycopyrrolate (Robinul) 1 mg STK-MED ONCE .ROUTE ; Start 11/19/16 at 08:51; Stop 11/19/16 at 08:52; Status DC Rocuronium Renick 100 mg 100 mg STK-MED ONCE .ROUTE ; Start 11/19/16 at 08:51; Stop 11/19/16 at 08:52; Status DC Vancomycin HCl/ Sodium Chloride (Iv Sodium Chloride 0.9% 500ml Bag) 500 ml @ 0 mls/hr 1X ONCE IV Last administered on 4/27/17at 09:48; Start 11/19/16 at 09: 00; Stop 11/19/16 at 09:15; Status DC Sufentanil Citrate (Sufenta) 100 mcg STK-MED ONCE .ROUTE ; Start 11/19/16 at 08: 56; Stop 11/19/16 at 08:57; Status DC Midazolam HCl (Versed) 5 mg STK-MED ONCE .ROUTE ; Start 11/19/16 at 09:25; Stop 11/19/16 at 09:26; Status DC Protamine Sulfate 50 mg STK-MED ONCE IV ; Start 11/19/16 at 11:50; Stop at 11:51; Status DC Protamine Sulfate 250 mg STK-MED ONCE IV ; Start 11/19/16 at 11:50; Stop at 11:51; Status DC Protamine Sulfate 250 mg STK-MED ONCE IV ; Start 11/19/16 at 11:57; Stop at 11:58; Status DC Lidocaine HCl (Lidocaine HCl 2% Abboject) 100 mg STK-MED ONCE .ROUTE ; Start at 12:26; Stop 11/19/16 at 12:27; Status DC Mannitol (Mannitol) 12.5 g STK-MED ONCE .ROUTE ; Start 11/19/16 at 12:26; Stop 11/19/16 at 12:27; Status DC Calcium Chloride 1000 mg 1,000 mg STK-MED ONCE IV ; Start 11/19/16 at 12:26; Stop 11/19/16 at 12:27; Status DC Albumin Human (Albuminar) 100 ml @ As Directed STK-MED ONCE IV ; Start at 12:26; Stop 11/19/16 at 12:27; Status DC Heparin Sodium (Porcine) 30,000 unit STK-MED ONCE .ROUTE ; Start 11/19/16 at 12: 26; Stop 11/19/16 at 12:27; Status DC Magnesium Sulfate 5 gm STK-MED ONCE .ROUTE ; Start 11/19/16 at 12:26; Stop 11/19 at 12:27; Status DC Sodium Chloride 3 ml 3 ml PRN Q12HR PRN IV AFTER MEDS AND BLOOD DRAWS; Start at 13:15 Lactated Ringer's 1,000 ml @ 30 mls/hr Q24H IV Last administered on 11/20/16 19:36; Start 11/19/16 at 13:12 Insulin Human Regular/Sodium Chloride (Novolin R Vial/ Iv Normal Saline 150ml) 151.5 ml @ 0 mls/hr CONT PRN PRN IV SEE I/O RECORD; Start 11/19/16 at 13:15 Dextrose 25 gm 25 gm PRN Q15MIN PRN IV LOW BLOOD SUGAR; Start 11/19/16 at 13:15 Nitroglycerin/ Dextrose 250 ml @ 0 mls/hr CONT PRN PRN IV SEE I/O RECORD; Start 11/19/16 at 13:15 Dopamine HCl/ Dextrose 250 ml @ 0 mls/hr CONT PRN PRN IV SEE I/O RECORD; Start 11/19/16 at 13:15 Dobutamine HCl/ Dextrose 250 ml @ 0 mls/hr CONT PRN PRN IV SEE I/O RECORD; Start 11/19/16 at 13:15 Phenylephrine HCl 20 mg/Sodium Chloride 252 ml @ 0 mls/hr CONT PRN PRN IV HYPOTENSION; Start 11/19/16 at 13:15 Epinephrine HCl/ Sodium Chloride (Adrenalin/Iv Sodium Chloride 0.9% 250ml) 254 ml @ 0 mls/hr CONT PRN PRN IV POST CV SURGERY; Start 11/19/16 at 13:15 Info 1 ea CONT PRN PRN MC SEE COMMENTS; Start 11/19/16 at 13:15 Info 1 ea 1 ea CONT PRN PRN MC SEE COMMENTS; Start 11/19/16 at 13:15 Magnesium Sulfate/ Dextrose (Magnesium Sulfate PREMIX 1GM) 100 ml @ 100 mls/hr PRN DAILY PRN IV FOR MAG < 2.2 Last administered on 11/20/16 08:28; Start at 13:15 Famotidine (Pepcid) 20 mg BID IVP Last administered on 11/20/16 21:11; Start 11/19/16 at 21:00; Stop 11/21/16 at 07:54; Status DC Ondansetron HCl (Zofran) 4 mg PRN Q4HRS PRN IV NAUSEA/VOMITING Last administered on 11/19/16 20:43; Start 11/19/16 at 13:15 Prochlorperazine Edisylate (Compazine) 10 mg PRN Q6HRS PRN IV NAUSEA/VOMITING Last administered on 11/20/16 13:10; Start 11/19/16 at 13:15 Morphine Sulfate 2 mg PRN Q1HR PRN IV PAIN Last administered on 11/19/16 15:30 ; Start 11/19/16 at 13:15 Acetaminophen (Tylenol) 650 mg PRN Q4HRS PRN PO MILD PAIN / TEMP Last administered on 11/21/16 12:46; Start 11/19/16 at 13:15 Acetaminophen (Acetaminophen Supp) 650 mg PRN Q4HRS PRN IN MILD PAIN / TEMP; Start 11/19/16 at 13:15 Meperidine HCl 12.5 mg 12.5 mg PRN Q15MIN PRN IV SHIVERING; Start 11/19/16 at 13:15; Stop 11/20/16 at 13:14; Status DC Propofol (Diprivan) 100 ml @ 0 mls/hr CONT PRN PRN IV POSTOP SEDATION UNTIL EXTUBATE Last administered on 11/19/16 15:47; Start 11/19/16 at 13:15 Senna/Docusate Sodium (Senna Plus) 1 tab BID PO Last administered on 11/21/16 09:45; Start 11/19/16 at 21:00 Bisacodyl (Dulcolax Supp) 10 mg PRN DAILY PRN IN NO BOWEL MOVEMENT; Start 11/19 at 13:15 Chlorhexidine Gluconate (Peridex) 15 ml BID MM ; Start 11/19/16 at 21:00; Stop 11/20/16 at 04:44; Status DC Aspirin 325 mg 325 mg [id number] PO Last administered on 11/21/16 09:45; Start 11/20/16 at 08:00 Nicardipine HCl 50 mg/Sodium Chloride 270 ml @ 0 mls/hr CONT PRN PRN IV PER PROTOCOL; Start 11/19/16 at 13:15 Clevidipine (Cleviprex) 100 ml @ 0 mls/hr CONT PRN IV PER PROTOCOL; Start 11/19 at 13:15 Acetaminophen/ Hydrocodone Bitart (Lortab 5/325) 1 tab PRN Q4HRS PRN PO MILD PAIN; Start 11/19/16 at 13:15 Acetaminophen/ Hydrocodone Bitart 2 tab 2 tab PRN Q4HRS PRN PO MODERATE PAIN, SEVERE PAIN Last administered on 11/20/16 05:43; Start 11/19/16 at 13:15 Cefazolin Sodium/ Dextrose 50 ml @ 100 mls/hr Q8H IV ; Start 11/19/16 at 13:30 ; Stop 11/20/16 at 21:59; Status UNV Potassium Chloride 50 ml @ 50 mls/hr 1X ONCE IV Last administered on 15:38; Start 11/19/16 at 15:00; Stop 11/19/16 at 15:59; Status DC Albumin Human 250 ml @ 62.5 mls/hr CONT PRN IV SEE COMMENTS Last administered on 11/19/16 15:58; Start 11/19/16 at 15:15 Phenylephrine HCl 20 mg/Sodium Chloride 252 ml @ 0 mls/hr CONT PRN IV SEE I/O RECORD Last administered on 11/19/16 16:26; Start 11/19/16 at 16:15 Vancomycin HCl/ Sodium Chloride (Iv Sodium Chloride 0.9% 500ml Bag) 500 ml @ 250 mls/hr Q12H IV Last administered on 11/20/16 21:11; Start 11/19/16 at 20: 00; Stop 11/20/16 at 21:59; Status DC Lidocaine HCl 1 ml STK-MED ONCE .ROUTE ; Start 11/19/16 at 20:47; Stop 11/19/16 at 20:48; Status DC Sodium Bicarbonate 50 meq 1X ONCE IV Last administered on 11/19/16 22:13; Start 11/19/16 at 22:30; Stop 11/19/16 at 22:31; Status DC Furosemide 40 mg 40 mg 1X ONCE IVP Last administered on 11/20/16 05:42; Start 11/20/16 at 05:00; Stop 11/20/16 at 05:01; Status DC Potassium Chloride 50 ml @ 50 mls/hr 1X ONCE IV Last administered on 09:26; Start 11/20/16 at 08:30; Stop 11/20/16 at 09:29; Status DC Potassium Chloride (KCl Premix 20meq) 50 ml @ 50 mls/hr 1X ONCE IV ; Start at 08:30; Stop 11/20/16 at 09:29; Status UNV Vancomycin HCl 1 gm STK-MED ONCE .ROUTE ; Start 11/19/16 at 07:00; Stop at 08:37; Status DC Ketorolac Tromethamine (Toradol) 15 mg 1X ONCE IV Last administered on 13:10; Start 11/20/16 at 13:00; Stop 11/20/16 at 13:03; Status DC Atorvastatin Calcium (Lipitor) 40 mg QHS PO Last administered on 11/20/16 21: 11; Start 11/20/16 at 21:00 Furosemide (Lasix) 20 mg [id number] IVP Last administered on 11/21/16 09:45; Start 11/20/16 at 18:00 Famotidine (Pepcid) 20 mg BID PO Last administered on 11/21/16 09:46; Start at 09:00 Tramadol HCl (Ultram) 50 mg PRN Q6HRS PRN PO PAIN; Start 11/21/16 at 14:00 Metoprolol Tartrate (Lopressor) 12.5 mg BID PO ; Start 11/21/16 at 14:00 Vitals/I & O Vital Sign - Last 24 Hours 11/20/16 11/20/16 11/20/16 11/20/16 15:00 16:00 16:00 17:00 Temp 97.8 97.8 Pulse 64 64 66 Resp 18 18 20 B/P 99/64 102/65 106/67 Pulse Ox 96 95 96 O2 Delivery Nasal Cannula Nasal Cannula Nasal Cannula Nasal Cannula O2 Flow Rate 2.0 2.0 2.0 2.0 11/20/16 11/20/16 11/20/16 11/20/16 18:00 19:00 20:00 20:00 Temp 97.9 97.9 Pulse 74 67 66 Resp 24 20 20 B/P 99/65 104/68 105/59 Pulse Ox 93 98 98 O2 Delivery Nasal Cannula Nasal Cannula Nasal Cannula Nasal Cannula O2 Flow Rate 2.0 2.0 2.0 2.0 11/20/16 11/20/16 11/20/16 11/21/16 21:00 22:00 23:00 00:00 Temp 98.0 98.0 Pulse 68 73 75 67 Resp 12 14 14 16 B/P 97/59 113/58 97/61 100/59 Pulse Ox 97 98 97 98 O2 Delivery Nasal Cannula Nasal Cannula Nasal Cannula Nasal Cannula O2 Flow Rate 2.0 2.0 2.0 2.0 11/21/16 11/21/16 11/21/16 11/21/16 00:00 01:00 02:00 03:00 Pulse 66 69 74 Resp 16 16 23 B/P 86/56 96/62 129/69 Pulse Ox 96 96 95 O2 Delivery Nasal Cannula Nasal Cannula Nasal Cannula Nasal Cannula O2 Flow Rate 2.0 2.0 2.0 2.0 11/21/16 11/21/16 11/21/16 11/21/16 04:00 04:00 05:00 06:00 Temp 98.2 98.2 Pulse 72 74 72 Resp 15 14 16 B/P 120/69 116/66 129/69 Pulse Ox 96 96 97 O2 Delivery Nasal Cannula Nasal Cannula Nasal Cannula Nasal Cannula O2 Flow Rate 2.0 2.0 2.0 2.0 11/21/16 11/21/16 07:00 08:00 Pulse 71 Resp 14 B/P 115/66 Pulse Ox 97 O2 Delivery Nasal Cannula Nasal Cannula O2 Flow Rate 2.0 2.0 Intake and Output 11/20/16 11/20/16 11/21/16 15:00 23:00 07:00 Intake Total 1400 ml 1150 ml 1030.4 ml Output Total 1840 ml 825 ml 435 ml Balance -440 ml 325 ml 595.4 ml KULWINDER REID III DO Nov 21, 2016 14:44
--- NOTE | 2016-11-21 14:51 | RAD ---
Portable AP upright chest x-ray performed at 1439 Clinical indications: Status post left-sided chest tube removal. Comparison: Same day performed at 0415. IMPRESSION: Left-sided chest tube has been removed. No pneumothorax is seen. Small left-sided pleural effusion and associated left lung base atelectasis or infiltrate is unchanged.
[2016-11-21] MEDS: METOPROLOL TART IMMED RELEASE 25 MG TABLET. PO SCH ×2 (16:54→21:56)
[2016-11-21] MEDS: ATORVASTATIN CALCIUM 40 MG TABLET. PO SCH (21:56)
[2016-11-22 04:00] VITALS: BP 115/63
[2016-11-22 05:49] LABS: BASO % 0 % (0-3); EOS % 1 % (0-3); HEMATOCRIT 28.7 % (36.0-47.0); LYMPH # 0.8 x10^3/uL (1.0-4.8); LYMPH % 9 % (24-48); MEAN CORPUSCULAR HEMOGLOBIN 31 pg (25-35); MEAN CORPUSCULAR HGB CONC 35 g/dL (31-37); MEAN CORPUSCULAR VOLUME 89 fL (79-100); MONO % 10 % (0-9); NEUT % 80 % (31-73); PLATELET COUNT 134 x10^3/uL (140-400); RED BLOOD COUNT 3.22 x10^6/uL (3.50-5.40); RED CELL DISTRIBUTION WIDTH 13.3 % (11.5-14.5); WHITE BLOOD COUNT 9.1 x10^3/uL (4.0-11.0)
[2016-11-22 05:57] LABS: CALCIUM 8.3 mg/dL (8.5-10.1); CREATININE 0.7 mg/dL (0.6-1.0); GFR 83.7; POTASSIUM 3.3 mmol/L (3.5-5.1)
[2016-11-22] MEDS: FUROSEMIDE 20 MG/2 ML VIAL. IVP SCH (07:00)
[2016-11-22 07:08] VITALS: BP 104/58
[2016-11-22] MEDS: ONDANSETRON PF 4 MG/2 ML VIAL. IV PRN (08:41)
[2016-11-22] MEDS ORDERED: FUROSEMIDE 40 MG/4 ML VIAL. IVP ONE (09:15)
[2016-11-22] MEDS ORDERED: POTASSIUM CHLORIDE 20 MEQ TABLET.ER. PO ONE (09:15)
--- NOTE | 2016-11-22 09:20 | RAD ---
Portable AP upright view CXR: Clinical indications: Post-CABG Follow-up of lung infiltrate.. Comparison: November 21, 2016. IMPRESSION:: Again seen is a small left-sided pleural effusion and associated left lung base infiltrate or compressive atelectasis. This is stable. The right lung field remains clear. No pneumothorax is seen. The heart size and mediastinum are stable. Right IJ central line has been removed.
[2016-11-22] MEDS: POLYETHYLENE GLYCOL 3350 17 GM PACKET. PO PRN (09:32)
[2016-11-22] MEDS: DOCUSATE SODIUM 100 MG CAPSULE. PO SCH (09:36)
[2016-11-22] MEDS: SENNOSIDES/DOCUSATE 8.6/50MG TABLET. PO SCH ×2 (09:37→21:26)
[2016-11-22] MEDS: FAMOTIDINE 20 MG TABLET. PO SCH ×2 (09:37→21:26)
[2016-11-22] MEDS: METOPROLOL TART IMMED RELEASE 25 MG TABLET. PO SCH ×2 (09:47→21:27)
[2016-11-22] MEDS: ASPIRIN ENTERIC COATED 325 MG TABLET.DR. PO SCH (09:50)
[2016-11-22 11:03] VITALS: BP 105/63
--- NOTE | 2016-11-22 13:49 | PDOC ---
Progress Note Subjective Subjective Doing excellent, no issues. Normotensive and in sinus rhythm. Excellent urine output. Ambulating, minimal pain. ROS ROS No nausea No vomiting No SOB No pain No rash Vital Sign Vital Signs Vital Signs Date Time Temp Pulse Resp B/P Pulse Ox O2 Delivery O2 Flow Rate FiO2 11/22/16 11:03 98.0 71 18 105/63 94 Nasal Cannula 2.0 98.0 Physical Exam PHYSICAL EXAM General: Alert, cooperative, no distress Heart: Regular rate, Normal S1, Normal S2, sternotomy: stable, clean, dry and intact. Lungs: Clear Abdomen: Soft, No tenderness Extremities: No clubbing, No edema, Normal pulses Skin: No rashes, No breakdown Labs Lab Laboratory Tests Test 11/22/16 05:00 White Blood Count 9.1x10^3/uL (4.0-11.0) Red Blood Count 3.22x10^6/uL (3.50-5.40) Hemoglobin 10.0g/dL (12.0-15.5) Hematocrit 28.7% (36.0-47.0) Mean Corpuscular Volume 89fL (79-100) Mean Corpuscular Hemoglobin 31pg (25-35) Mean Corpuscular Hemoglobin Concent 35g/dL (31-37) Red Cell Distribution Width 13.3% (11.5-14.5) Platelet Count 134x10^3/uL (140-400) Neutrophils (%) (Auto) 80% (31-73) Lymphocytes (%) (Auto) 9% (24-48) Monocytes (%) (Auto) 10% (0-9) Eosinophils (%) (Auto) 1% (0-3) Basophils (%) (Auto) 0% (0-3) Neutrophils # (Auto) 7.2x10^3uL (1.8-7.7) Lymphocytes # (Auto) 0.8x10^3/uL (1.0-4.8) Monocytes # (Auto) 0.9x10^3/uL (0.0-1.1) Eosinophils # (Auto) 0.1x10^3/uL (0.0-0.7) Basophils # (Auto) 0.0x10^3/uL (0.0-0.2) Sodium Level 141mmol/L (136-145) Potassium Level 3.3mmol/L (3.5-5.1) Chloride Level 106mmol/L (98-107) Carbon Dioxide Level 29mmol/L (21-32) Anion Gap 6 (6-14) Blood Urea Nitrogen 14mg/dL (7-20) Creatinine 0.7mg/dL (0.6-1.0) Estimated GFR (Cockcroft-Gault) 83.7 Glucose Level 126mg/dL (70-99) Calcium Level 8.3mg/dL (8.5-10.1) Objective Assessment POD#3, s/p CABG x 2 (GUZMÁN to LAD, SVG to OM). Doing excellent, no issues. Normotensive and in sinus rhythm. Excellent urine output. Ambulating, minimal pain. Plan Plan of Care Continue diuresis with Lasix 20 mg IV twice daily for one more day Check K/Mg and replace as needed ASA and statin Low dose [id number] Ambulation and aggressive pulmonary toilet No need for anymore CBC checks, no need for anymore CXRs Home on Wednesday DAVID CHAMPAGNE MD Nov 22, 2016 13:49
[2016-11-22] MEDS ORDERED: FUROSEMIDE 20 MG/2 ML VIAL. IVP SCH (14:15)
[2016-11-22] MEDS: ACETAMINOPHEN 325 MG TABLET. PO PRN ×3 (14:47→23:16)
[2016-11-22 15:03] VITALS: BP 112/65
--- NOTE | 2016-11-22 15:33 | PDOC ---
PROGRESS NOTES Chief Complaint Chief Complaint cc: chest pain CAD with CABG (11/19/2016) NSTEMI GERD CAD Hypokalemia rheumatoid arthritis prior Tubal Ligation Tonsillectomy History of Present Illness History of Present Illness Patient seen and evaluated at bedside. sitting upright, in no apparent distress. POD #3 s/p CABG. Patient reports post-operative incisional pain as well as some Left ankle pain, otherwise doing well. Per daughter, patient is ambulating well with PT. d/w nurse about plan of care. Vitals Vitals Vital Signs Date Time Temp Pulse Resp B/P Pulse Ox O2 Delivery O2 Flow Rate FiO2 11/22/16 15:03 97.7 73 20 112/65 95 Nasal Cannula 2.0 97.7 Physical Exam General: Alert, Oriented X3, Cooperative, No acute distress Heart: Regular rate, Normal S1, Normal S2, No murmurs, Other (sternotomy dressing clean, dry, and intact. ) Lungs: Clear, Other (No chest retractions or other signs of acute distress were present. ) Abdomen: Soft, No tenderness, No masses Extremities: No clubbing, Normal pulses Skin: No rashes, Other (The dressing and drains were clean, dry, and intact. ) Labs LABS Laboratory Tests Test 11/22/16 05:00 White Blood Count 9.1x10^3/uL (4.0-11.0) Red Blood Count 3.22x10^6/uL (3.50-5.40) Hemoglobin 10.0g/dL (12.0-15.5) Hematocrit 28.7% (36.0-47.0) Mean Corpuscular Volume 89fL (79-100) Mean Corpuscular Hemoglobin 31pg (25-35) Mean Corpuscular Hemoglobin Concent 35g/dL (31-37) Red Cell Distribution Width 13.3% (11.5-14.5) Platelet Count 134x10^3/uL (140-400) Neutrophils (%) (Auto) 80% (31-73) Lymphocytes (%) (Auto) 9% (24-48) Monocytes (%) (Auto) 10% (0-9) Eosinophils (%) (Auto) 1% (0-3) Basophils (%) (Auto) 0% (0-3) Neutrophils # (Auto) 7.2x10^3uL (1.8-7.7) Lymphocytes # (Auto) 0.8x10^3/uL (1.0-4.8) Monocytes # (Auto) 0.9x10^3/uL (0.0-1.1) Eosinophils # (Auto) 0.1x10^3/uL (0.0-0.7) Basophils # (Auto) 0.0x10^3/uL (0.0-0.2) Sodium Level 141mmol/L (136-145) Potassium Level 3.3mmol/L (3.5-5.1) Chloride Level 106mmol/L (98-107) Carbon Dioxide Level 29mmol/L (21-32) Anion Gap 6 (6-14) Blood Urea Nitrogen 14mg/dL (7-20) Creatinine 0.7mg/dL (0.6-1.0) Estimated GFR (Cockcroft-Gault) 83.7 Glucose Level 126mg/dL (70-99) Calcium Level 8.3mg/dL (8.5-10.1) Review of Systems Review of Systems (+) post-operative sternotomy pain (+) left ankle pain Denies palpitations, sob, abdominal pain, n/v/d, or fever/chills. Assessment and Plan Assessmemt and Plan Assessmemt and Plan Assessment: 1.) NSTEMI, POA 2.) CAD with left main disease, POD#3 CABGx2 3.) GERD 4.) Hypokalemia 5.) rheumatoid arthritis Assessment: 1.) continue telemetry monitoring 2.) local wound care 3.) appreciate subspecialty input 4.) continue pain control. ASA, statin, Low dose b-hilda per CT surgery 5.) monitor AM labs 6.) PT/OT evaluation and treatment when appropriate; cardiac rehabilitation evaluation. 7.) continue vancomycin 8.) encourage ambulation and continue pulmonary toilet. 9.) expectant discharge on 11/24/[address] surgery. Problems: Comment Review of Relevant I have reviewed the following items melva (where applicable) has been applied. Labs Laboratory Tests Test 11/20/16 17:29 11/21/16 06:20 11/22/16 05:00 Glucose (Fingerstick) 125mg/dL (70-99) White Blood Count 8.4x10^3/uL (4.0-11.0) 9.1x10^3/uL (4.0-11.0) Red Blood Count 3.12x10^6/uL (3.50-5.40) 3.22x10^6/uL (3.50-5.40) Hemoglobin 9.5g/dL (12.0-15.5) 10.0g/dL (12.0-15.5) Hematocrit 28.7% (36.0-47.0) 28.7% (36.0-47.0) Mean Corpuscular Volume 92fL (79-100) 89fL (79-100) Mean Corpuscular Hemoglobin 30pg (25-35) 31pg (25-35) Mean Corpuscular Hemoglobin Concent 33g/dL (31-37) 35g/dL (31-37) Red Cell Distribution Width 13.3% (11.5-14.5) 13.3% (11.5-14.5) Platelet Count 87x10^3/uL (140-400) 134x10^3/uL (140-400) Neutrophils (%) (Auto) 83% (31-73) 80% (31-73) Lymphocytes (%) (Auto) 7% (24-48) 9% (24-48) Monocytes (%) (Auto) 9% (0-9) 10% (0-9) Eosinophils (%) (Auto) 0% (0-3) 1% (0-3) Basophils (%) (Auto) 0% (0-3) 0% (0-3) Neutrophils # (Auto) 7.0x10^3uL (1.8-7.7) 7.2x10^3uL (1.8-7.7) Lymphocytes # (Auto) 0.6x10^3/uL (1.0-4.8) 0.8x10^3/uL (1.0-4.8) Monocytes # (Auto) 0.7x10^3/uL (0.0-1.1) 0.9x10^3/uL (0.0-1.1) Eosinophils # (Auto) 0.0x10^3/uL (0.0-0.7) 0.1x10^3/uL (0.0-0.7) Basophils # (Auto) 0.0x10^3/uL (0.0-0.2) 0.0x10^3/uL (0.0-0.2) Sodium Level 139mmol/L (136-145) 141mmol/L (136-145) Potassium Level 3.8mmol/L (3.5-5.1) 3.3mmol/L (3.5-5.1) Chloride Level 107mmol/L (98-107) 106mmol/L (98-107) Carbon Dioxide Level 27mmol/L (21-32) 29mmol/L (21-32) Anion Gap 5 (6-14) 6 (6-14) Blood Urea Nitrogen 18mg/dL (7-20) 14mg/dL (7-20) Creatinine 0.9mg/dL (0.6-1.0) 0.7mg/dL (0.6-1.0) Estimated GFR (Cockcroft-Gault) 62.6 83.7 Glucose Level 117mg/dL (70-99) 126mg/dL (70-99) Calcium Level 8.1mg/dL (8.5-10.1) 8.3mg/dL (8.5-10.1) Magnesium Level 2.2mg/dL (1.8-2.4) Laboratory Tests Test 11/22/16 05:00 White Blood Count 9.1x10^3/uL (4.0-11.0) Red Blood Count 3.22x10^6/uL (3.50-5.40) Hemoglobin 10.0g/dL (12.0-15.5) Hematocrit 28.7% (36.0-47.0) Mean Corpuscular Volume 89fL (79-100) Mean Corpuscular Hemoglobin 31pg (25-35) Mean Corpuscular Hemoglobin Concent 35g/dL (31-37) Red Cell Distribution Width 13.3% (11.5-14.5) Platelet Count 134x10^3/uL (140-400) Neutrophils (%) (Auto) 80% (31-73) Lymphocytes (%) (Auto) 9% (24-48) Monocytes (%) (Auto) 10% (0-9) Eosinophils (%) (Auto) 1% (0-3) Basophils (%) (Auto) 0% (0-3) Neutrophils # (Auto) 7.2x10^3uL (1.8-7.7) Lymphocytes # (Auto) 0.8x10^3/uL (1.0-4.8) Monocytes # (Auto) 0.9x10^3/uL (0.0-1.1) Eosinophils # (Auto) 0.1x10^3/uL (0.0-0.7) Basophils # (Auto) 0.0x10^3/uL (0.0-0.2) Sodium Level 141mmol/L (136-145) Potassium Level 3.3mmol/L (3.5-5.1) Chloride Level 106mmol/L (98-107) Carbon Dioxide Level 29mmol/L (21-32) Anion Gap 6 (6-14) Blood Urea Nitrogen 14mg/dL (7-20) Creatinine 0.7mg/dL (0.6-1.0) Estimated GFR (Cockcroft-Gault) 83.7 Glucose Level 126mg/dL (70-99) Calcium Level 8.3mg/dL (8.5-10.1) Medications Current Medications Acetaminophen (Tylenol) 650 mg PRN Q6HRS PRN PO PAIN Last administered on 12:33; Start 11/17/16 at 10:00; Stop 11/20/16 at 16:15; Status DC Ondansetron HCl (Zofran) 4 mg PRN Q6HRS PRN IV NAUSEA/VOMITING Last administered on 11/18/16 14:01; Start 11/17/16 at 10:15; Stop 11/19/16 at 08:57 ; Status DC Pantoprazole Sodium (Protonix) 40 mg DAILYAC PO Last administered on 11/20/16 08:26; Start 11/18/16 at 07:30; Stop 11/21/16 at 16:30; Status DC Regadenoson (Lexiscan) 0.4 mg 1X ONCE IV Last administered on 11/17/16 11:45 ; Start 11/17/16 at 11:15; Stop 11/17/16 at 11:16; Status DC Aspirin (Ecotrin) 325 mg 1X ONCE PO Last administered on 11/18/16 00:06; Start 11/17/16 at 23:30; Stop 11/17/16 at 23:31; Status DC Iohexol 100 ml 100 ml STK-MED ONCE .ROUTE ; Start 11/18/16 at 10:16; Stop at 10:17; Status DC Heparin Sodium/ Sodium Chloride 1,000 ml @ As Directed STK-MED ONCE .ROUTE ; Start 11/18/16 at 10:16; Stop 11/18/16 at 10:17; Status DC Lidocaine HCl 20 ml STK-MED ONCE .ROUTE ; Start 11/18/16 at 10:16; Stop at 10:17; Status DC Nitroglycerin (Nitroglycerin) 200 mcg STK-MED ONCE .ROUTE ; Start 11/18/16 at 10 :57; Stop 11/18/16 at 10:58; Status DC Verapamil HCl (Verapamil) 5 mg STK-MED ONCE .ROUTE ; Start 11/18/16 at 10:57; Stop 11/18/16 at 10:58; Status DC Midazolam HCl (Versed) 5 mg STK-MED ONCE .ROUTE ; Start 11/18/16 at 10:57; Stop 11/18/16 at 10:58; Status DC Fentanyl Citrate (Fentanyl 5ml Vial) 250 mcg STK-MED ONCE .ROUTE ; Start at 10:57; Stop 11/18/16 at 10:58; Status DC Heparin Sodium (Porcine) (Heparin Sodium) 10,000 unit STK-MED ONCE .ROUTE ; Start 11/18/16 at 10:57; Stop 11/18/16 at 10:58; Status DC Nitroglycerin (Nitroglycerin) 200 mcg 1X ONCE IART Last administered on 11:34; Start 11/18/16 at 11:30; Stop 11/18/16 at 11:31; Status DC Verapamil HCl (Verapamil) 2.5 mg 1X ONCE IART Last administered on 11/18/16 11:34; Start 11/18/16 at 11:30; Stop 11/18/16 at 11:31; Status DC Heparin Sodium (Porcine) (Heparin Sodium) 2,500 unit 1X ONCE IART Last administered on 11/18/16 11:41; Start 11/18/16 at 11:30; Stop 11/18/16 at 11:31 ; Status DC Heparin Sodium/ Sodium Chloride 1,000 unit 1X ONCE IART Last administered on 11:34; Start 11/18/16 at 11:30; Stop 11/18/16 at 11:31; Status DC Midazolam HCl (Versed) 5 mg 1X ONCE IV Last administered on 11/18/16 11:33; Start 11/18/16 at 11:30; Stop 11/18/16 at 11:31; Status DC Fentanyl Citrate (Fentanyl 5ml Vial) 250 mcg 1X ONCE IV Last administered on 11:33; Start 11/18/16 at 11:30; Stop 11/18/16 at 11:31; Status DC Iohexol (Omnipaque 300 Mg/ml) 100 ml 1X ONCE IART Last administered on 11:34; Start 11/18/16 at 11:30; Stop 11/18/16 at 11:31; Status DC Lidocaine HCl 20 ml 20 ml 1X ONCE IJ Last administered on 11/18/16 11:34; Start 11/18/16 at 11:30; Stop 11/18/16 at 11:31; Status DC Sodium Chloride (Iv Sodium Chloride 0.45%) 1,000 ml @ 60 mls/hr [id number] IV Last administered on 11/19/16 04:33; Start 11/18/16 at 11:54; Stop 11/20/16 at 19:39; Status DC Nitroglycerin 0.4 mg 0.4 mg PRN Q5MIN PRN SL CHEST PAIN; Start 11/18/16 at 12: 00 Magnesium Sulfate/ Dextrose (Magnesium Sulfate PREMIX 2GM) 50 ml @ 25 mls/hr 1X ONCE IV Last administered on 11/18/16 16:14; Start 11/18/16 at 14:00; Stop 11/18/16 at 15:59; Status DC Potassium Chloride (Klor-Con) 20 meq 1X ONCE PO ; Start 11/18/16 at 13:45; Stop 11/18/16 at 13:46; Status DC Ondansetron HCl (Zofran) 4 mg PRN Q8HRS PRN IV NAUSEA/VOMITING Last administered on 11/22/16 08:41; Start 11/18/16 at 13:45; Stop 11/22/16 at 12:27 ; Status DC Docusate Sodium (Colace) 100 mg DAILY PO Last administered on 11/22/16 09:36; Start 11/18/16 at 14:00 Polyethylene Glycol (miraLAX PACKET) 17 gm PRN DAILY PRN PO CONSTIPATION Last administered on 11/22/16 09:32; Start 11/18/16 at 13:45 Iohexol (Omnipaque 300 Mg/ml) 75 ml 1X ONCE IV ; Start 11/18/16 at 15:00; Stop 11/18/16 at 15:01; Status DC Info (Do NOT chart on this entry -- for MONITORING) 1 each PRN DAILY PRN MC SEE COMMENTS; Start 11/18/16 at 15:00; Stop 11/20/16 at 14:59; Status DC Prochlorperazine Edisylate 10 mg 10 mg 1X ONCE IV Last administered on 15:45; Start 11/18/16 at 15:45; Stop 11/18/16 at 15:47; Status DC Potassium Chloride 70 meq/ Sodium Bicarbonate 12.5 meq/Lidocaine HCl 24 ml/ Parenteral Electrolytes 571.5 ml @ 571.5 mls/ hr 1X PERIOP ONCE IRR ; Start at 06:00; Stop 11/19/16 at 06:59; Status DC Potassium Chloride 15 meq/ Sodium Bicarbonate 12.5 meq/Parenteral Electrolytes 520 ml @ 520 mls/hr 1X PERIOP ONCE IRR ; Start 11/19/16 at 06:00; Stop at 06:59; Status DC Heparin Sodium (Porcine) 09898 unit/Lactated Ringer's 1,020 ml @ 1,020 mls/hr 1X PERIOP ONCE IRR Last administered on 11/19/16 08:42; Start 11/19/16 at 06: 00; Stop 11/19/16 at 06:59; Status DC Cefazolin Sodium/ Sodium Chloride (Ancef/Iv Sodium Chloride 0.9% 500ml Bag) 500 ml @ 500 mls/hr 1X PERIOP ONCE IRR Last administered on 11/19/16 08:42; Start 11/19/16 at 06:00; Stop 11/19/16 at 06:59; Status DC Midazolam HCl (Versed) 2 mg STK-MED ONCE .ROUTE ; Start 11/19/16 at 06:33; Stop 11/19/16 at 06:34; Status DC Rocuronium [place] (Zemuron) 100 mg STK-MED ONCE .ROUTE ; Start 11/19/16 at 06: 33; Stop 11/19/16 at 06:34; Status DC Sufentanil Citrate (Sufenta) 100 mcg STK-MED ONCE .ROUTE ; Start 11/19/16 at 06: 33; Stop 11/19/16 at 06:34; Status DC Isoflurane 90 ml 90 ml STK-MED ONCE IH ; Start 11/19/16 at 06:35; Stop 11/19/16 at 06:36; Status DC Nitroglycerin/ Dextrose (Nitroglycerin Drip) 250 ml @ As Directed STK-MED ONCE IV ; Start 11/19/16 at 06:35; Stop 11/19/16 at 06:36; Status DC Aminocaproic Acid (Amicar) 5,000 mg STK-MED ONCE IV ; Start 11/19/16 at 06:35; Stop 11/19/16 at 06:36; Status DC Aminocaproic Acid (Amicar) 5,000 mg STK-MED ONCE IV ; Start 11/19/16 at 06:35; Stop 11/19/16 at 06:36; Status DC Aminocaproic Acid (Amicar) 5,000 mg STK-MED ONCE IV ; Start 11/19/16 at 06:35; Stop 11/19/16 at 06:36; Status DC Etomidate (Amidate) 20 mg STK-MED ONCE IV ; Start 11/19/16 at 06:35; Stop at 06:36; Status DC Lidocaine HCl (Lidocaine HCl 2% Abboject) 100 mg STK-MED ONCE .ROUTE ; Start at 06:35; Stop 11/19/16 at 06:36; Status DC Phenylephrine HCl (Ron-Synephrine Inj) 10 mg STK-MED ONCE .ROUTE ; Start at 06:35; Stop 11/19/16 at 06:36; Status DC Phenylephrine HCl (Ron-Synephrine Inj) 10 mg STK-MED ONCE .ROUTE ; Start at 06:35; Stop 11/19/16 at 06:36; Status DC Phenylephrine HCl (Ron-Synephrine Inj) 10 mg STK-MED ONCE .ROUTE ; Start at 06:35; Stop 11/19/16 at 06:36; Status DC Heparin Sodium (Porcine) (Heparin Sodium) 10,000 unit STK-MED ONCE .ROUTE ; Start 11/19/16 at 06:35; Stop 11/19/16 at 06:36; Status DC Heparin Sodium (Porcine) (Heparin Sodium) 10,000 unit STK-MED ONCE .ROUTE ; Start 11/19/16 at 06:35; Stop 11/19/16 at 06:36; Status DC Heparin Sodium (Porcine) (Heparin Sodium) 10,000 unit STK-MED ONCE .ROUTE ; Start 11/19/16 at 06:35; Stop 11/19/16 at 06:36; Status DC Heparin Sodium (Porcine) (Heparin Sodium) 10,000 unit STK-MED ONCE .ROUTE ; Start 11/19/16 at 06:35; Stop 11/19/16 at 06:36; Status DC Ephedrine Sulfate 50 mg STK-MED ONCE IV ; Start 11/19/16 at 06:36; Stop at 06:37; Status DC Lidocaine HCl 1 ml STK-MED ONCE .ROUTE ; Start 11/19/16 at 06:39; Stop 11/19/16 at 06:40; Status DC Cellulose 1 each STK-MED ONCE .ROUTE Last administered on 11/19/16 08:42; Start 11/19/16 at 06:57; Stop 11/19/16 at 06:58; Status DC Vancomycin HCl (Vanco) 10 gm STK-MED ONCE .ROUTE Last administered on 08:42; Start 11/19/16 at 06:57; Stop 11/19/16 at 06:58; Status DC Papaverine HCl 60 mg STK-MED ONCE .ROUTE Last administered on 11/19/16 08:42; Start 11/19/16 at 06:57; Stop 11/19/16 at 06:58; Status DC Aspirin (Aspirin) 300 mg STK-MED ONCE .ROUTE Last administered on 11/19/16 13: 06; Start 11/19/16 at 06:58; Stop 11/19/16 at 06:59; Status DC Sodium Chloride 50 ml 50 ml STK-MED ONCE IJ Last administered on 11/19/16 08: 42; Start 11/19/16 at 06:58; Stop 11/19/16 at 06:59; Status DC Vancomycin HCl 250 ml @ As Directed STK-MED ONCE .ROUTE ; Start 11/19/16 at 07: 07; Stop 11/19/16 at 07:08; Status DC Lactated Ringer's 1,000 ml @ 75 mls/hr [id number] IV Last administered on 07:36; Start 11/19/16 at 07:30; Stop 11/20/16 at 19:39; Status DC Vancomycin HCl 250 ml @ 250 mls/hr 1X PREOP IV ; Start 11/19/16 at 08:00; Stop 11/20/16 at 07:59; Status DC Glycopyrrolate (Robinul) 1 mg STK-MED ONCE .ROUTE ; Start 11/19/16 at 08:51; Stop 11/19/16 at 08:52; Status DC Rocuronium [place] 100 mg 100 mg STK-MED ONCE .ROUTE ; Start 11/19/16 at 08:51; Stop 11/19/16 at 08:52; Status DC Vancomycin HCl/ Sodium Chloride (Iv Sodium Chloride 0.9% 500ml Bag) 500 ml @ 0 mls/hr 1X ONCE IV Last administered on 11/19/16 09:48; Start 11/19/16 at 09: 00; Stop 11/19/16 at 09:15; Status DC Sufentanil Citrate (Sufenta) 100 mcg STK-MED ONCE .ROUTE ; Start 11/19/16 at 08: 56; Stop 11/19/16 at 08:57; Status DC Midazolam HCl (Versed) 5 mg STK-MED ONCE .ROUTE ; Start 11/19/16 at 09:25; Stop 11/19/16 at 09:26; Status DC Protamine Sulfate 50 mg STK-MED ONCE IV ; Start 11/19/16 at 11:50; Stop at 11:51; Status DC Protamine Sulfate 250 mg STK-MED ONCE IV ; Start 11/19/16 at 11:50; Stop at 11:51; Status DC Protamine Sulfate 250 mg STK-MED ONCE IV ; Start 11/19/16 at 11:57; Stop at 11:58; Status DC Lidocaine HCl (Lidocaine HCl 2% Abboject) 100 mg STK-MED ONCE .ROUTE ; Start at 12:26; Stop 11/19/16 at 12:27; Status DC Mannitol (Mannitol) 12.5 g STK-MED ONCE .ROUTE ; Start 11/19/16 at 12:26; Stop 11/19/16 at 12:27; Status DC Calcium Chloride 1000 mg 1,000 mg STK-MED ONCE IV ; Start 11/19/16 at 12:26; Stop 11/19/16 at 12:27; Status DC Albumin Human (Albuminar) 100 ml @ As Directed STK-MED ONCE IV ; Start at 12:26; Stop 11/19/16 at 12:27; Status DC Heparin Sodium (Porcine) 30,000 unit STK-MED ONCE .ROUTE ; Start 11/19/16 at 12: 26; Stop 11/19/16 at 12:27; Status DC Magnesium Sulfate 5 gm STK-MED ONCE .ROUTE ; Start 11/19/16 at 12:26; Stop 11/19 at 12:27; Status DC Sodium Chloride 3 ml 3 ml PRN Q12HR PRN IV AFTER MEDS AND BLOOD DRAWS; Start at 13:15 Lactated Ringer's 1,000 ml @ 30 mls/hr Q24H IV Last administered on 11/20/16t 19:36; Start 11/19/16 at 13:12; Stop 11/21/16 at 16:30; Status DC Insulin Human Regular/Sodium Chloride (Novolin R Vial/ Iv Normal Saline 150ml) 151.5 ml @ 0 mls/hr CONT PRN PRN IV SEE I/O RECORD; Start 11/19/16 at 13:15; Stop 11/21/16 at 16:30; Status DC Dextrose 25 gm 25 gm PRN Q15MIN PRN IV LOW BLOOD SUGAR; Start 11/19/16 at 13:15 Nitroglycerin/ Dextrose 250 ml @ 0 mls/hr CONT PRN PRN IV SEE I/O RECORD; Start 11/19/16 at 13:15; Stop 11/21/16 at 16:30; Status DC Dopamine HCl/ Dextrose 250 ml @ 0 mls/hr CONT PRN PRN IV SEE I/O RECORD; Start 11/19/16 at 13:15; Stop 11/21/16 at 16:30; Status DC Dobutamine HCl/ Dextrose 250 ml @ 0 mls/hr CONT PRN PRN IV SEE I/O RECORD; Start 11/19/16 at 13:15; Stop 11/21/16 at 16:30; Status DC Phenylephrine HCl 20 mg/Sodium Chloride 252 ml @ 0 mls/hr CONT PRN PRN IV HYPOTENSION; Start 11/19/16 at 13:15; Stop 11/21/16 at 16:30; Status DC Epinephrine HCl/ Sodium Chloride (Adrenalin/Iv Sodium Chloride 0.9% 250ml) 254 ml @ 0 mls/hr CONT PRN PRN IV POST CV SURGERY; Start 11/19/16 at 13:15; Stop at 16:30; Status DC Info 1 ea CONT PRN PRN MC SEE COMMENTS; Start 11/19/16 at 13:15 Info 1 ea 1 ea CONT PRN PRN MC SEE COMMENTS; Start 11/19/16 at 13:15; Stop at 16:30; Status DC Magnesium Sulfate/ Dextrose (Magnesium Sulfate PREMIX 1GM) 100 ml @ 100 mls/hr PRN DAILY PRN IV FOR MAG < 2.2 Last administered on 11/20/16 08:28; Start at 13:15 Famotidine (Pepcid) 20 mg BID IVP Last administered on 11/20/16 21:11; Start 11/19/16 at 21:00; Stop 11/21/16 at 07:54; Status DC Ondansetron HCl (Zofran) 4 mg PRN Q4HRS PRN IV NAUSEA/VOMITING Last administered on 11/19/16 20:43; Start 11/19/16 at 13:15 Prochlorperazine Edisylate (Compazine) 10 mg PRN Q6HRS PRN IV NAUSEA/VOMITING Last administered on 11/20/16 13:10; Start 11/19/16 at 13:15 Morphine Sulfate 2 mg PRN Q1HR PRN IV PAIN Last administered on 11/19/16 15:30 ; Start 11/19/16 at 13:15 Acetaminophen (Tylenol) 650 mg PRN Q4HRS PRN PO MILD PAIN / TEMP Last administered on 11/22/16 14:47; Start 11/19/16 at 13:15 Acetaminophen (Acetaminophen Supp) 650 mg PRN Q4HRS PRN MS MILD PAIN / TEMP; Start 11/19/16 at 13:15 Meperidine HCl 12.5 mg 12.5 mg PRN Q15MIN PRN IV SHIVERING; Start 11/19/16 at 13:15; Stop 11/20/16 at 13:14; Status DC Propofol (Diprivan) 100 ml @ 0 mls/hr CONT PRN PRN IV POSTOP SEDATION UNTIL EXTUBATE Last administered on 11/19/16 15:47; Start 11/19/16 at 13:15; Stop at 16:30; Status DC Senna/Docusate Sodium (Senna Plus) 1 tab BID PO Last administered on 11/22/16 09:37; Start 11/19/16 at 21:00 Bisacodyl (Dulcolax Supp) 10 mg PRN DAILY PRN MS NO BOWEL MOVEMENT; Start 11/19 at 13:15 Chlorhexidine Gluconate (Peridex) 15 ml BID MM ; Start 11/19/16 at 21:00; Stop 11/20/16 at 04:44; Status DC Aspirin 325 mg 325 mg [id number] PO Last administered on 11/22/16 09:50; Start 11/20/16 at 08:00 Nicardipine HCl 50 mg/Sodium Chloride 270 ml @ 0 mls/hr CONT PRN PRN IV PER PROTOCOL; Start 11/19/16 at 13:15; Stop 11/21/16 at 16:30; Status DC Clevidipine (Cleviprex) 100 ml @ 0 mls/hr CONT PRN IV PER PROTOCOL; Start 11/19 at 13:15; Stop 11/21/16 at 16:30; Status DC Acetaminophen/ Hydrocodone Bitart (Lortab 5/325) 1 tab PRN Q4HRS PRN PO MILD PAIN; Start 11/19/16 at 13:15 Acetaminophen/ Hydrocodone Bitart 2 tab 2 tab PRN Q4HRS PRN PO MODERATE PAIN, SEVERE PAIN Last administered on 11/20/16 05:43; Start 11/19/16 at 13:15 Cefazolin Sodium/ Dextrose 50 ml @ 100 mls/hr Q8H IV ; Start 11/19/16 at 13:30 ; Stop 11/20/16 at 21:59; Status UNV Potassium Chloride 50 ml @ 50 mls/hr 1X ONCE IV Last administered on 15:38; Start 11/19/16 at 15:00; Stop 11/19/16 at 15:59; Status DC Albumin Human 250 ml @ 62.5 mls/hr CONT PRN IV SEE COMMENTS Last administered on 11/19/16 15:58; Start 11/19/16 at 15:15; Stop 11/21/16 at 16:30; Status DC Phenylephrine HCl 20 mg/Sodium Chloride 252 ml @ 0 mls/hr CONT PRN IV SEE I/O RECORD Last administered on 11/19/16 16:26; Start 11/19/16 at 16:15; Stop 11/21 at 16:30; Status DC Vancomycin HCl/ Sodium Chloride (Iv Sodium Chloride 0.9% 500ml Bag) 500 ml @ 250 mls/hr Q12H IV Last administered on 11/20/16 21:11; Start 11/19/16 at 20: 00; Stop 11/20/16 at 21:59; Status DC Lidocaine HCl 1 ml STK-MED ONCE .ROUTE ; Start 11/19/16 at 20:47; Stop 11/19/16 at 20:48; Status DC Sodium Bicarbonate 50 meq 1X ONCE IV Last administered on 11/19/16 22:13; Start 11/19/16 at 22:30; Stop 11/19/16 at 22:31; Status DC Furosemide 40 mg 40 mg 1X ONCE IVP Last administered on 11/20/16 05:42; Start 11/20/16 at 05:00; Stop 11/20/16 at 05:01; Status DC Potassium Chloride 50 ml @ 50 mls/hr 1X ONCE IV Last administered on 09:26; Start 11/20/16 at 08:30; Stop 11/20/16 at 09:29; Status DC Potassium Chloride (KCl Premix 20meq) 50 ml @ 50 mls/hr 1X ONCE IV ; Start at 08:30; Stop 11/20/16 at 09:29; Status UNV Vancomycin HCl 1 gm STK-MED ONCE .ROUTE ; Start 11/19/16 at 07:00; Stop at 08:37; Status DC Ketorolac Tromethamine (Toradol) 15 mg 1X ONCE IV Last administered on 13:10; Start 11/20/16 at 13:00; Stop 11/20/16 at 13:03; Status DC Atorvastatin Calcium (Lipitor) 40 mg QHS PO Last administered on 11/21/16 21: 56; Start 11/20/16 at 21:00 Furosemide (Lasix) 20 mg [id number] IVP Last administered on 11/21/16 09:45; Start 11/20/16 at 18:00; Stop 11/22/16 at 14:08; Status DC Famotidine (Pepcid) 20 mg BID PO Last administered on 11/22/16 09:37; Start at 09:00 Tramadol HCl (Ultram) 50 mg PRN Q6HRS PRN PO PAIN Last administered on 21:56; Start 11/21/16 at 14:00 Metoprolol Tartrate (Lopressor) 12.5 mg BID PO Last administered on 11/22/16 09:47; Start 11/21/16 at 14:00 Potassium Chloride (Klor-Con) 40 meq 1X ONCE PO Last administered on 09:34; Start 11/22/16 at 09:15; Stop 11/22/16 at 09:21; Status DC Furosemide (Lasix) 40 mg 1X ONCE IVP ; Start 11/22/16 at 09:15; Stop 11/22/16 at 09:21; Status DC Furosemide (Lasix) 20 mg NOON IVP ; Start 11/22/16 at 14:15 Vitals/I & O Vital Sign - Last 24 Hours 11/21/16 11/21/16 11/21/16 11/21/16 16:54 17:00 19:59 20:00 Temp 98.3 97.5 98.3 97.5 Pulse 68 72 74 Resp 23 16 B/P 133/70 121/71 112/71 Pulse Ox 96 O2 Delivery Nasal Cannula Nasal Cannula Nasal Cannula O2 Flow Rate 2.0 2.0 2.0 11/21/16 11/21/16 11/21/16 11/21/16 21:56 21:56 22:56 23:49 Temp 97.6 97.6 Pulse 74 62 Resp 16 16 16 B/P 112/71 119/69 Pulse Ox 96 O2 Delivery Nasal Cannula Nasal Cannula Nasal Cannula O2 Flow Rate 2.0 2.0 11/22/16 11/22/16 11/22/16 11/22/16 04:00 07:08 08:00 09:47 Temp 97.7 97.8 97.7 97.8 Pulse 65 66 Resp 16 B/P 115/63 104/58 105/57 Pulse Ox 93 93 O2 Delivery Nasal Cannula Nasal Cannula Nasal Cannula O2 Flow Rate 2.0 2.0 2.0 11/22/16 11/22/16 11:03 15:03 Temp 98.0 97.7 98.0 97.7 Pulse 71 73 Resp 18 20 B/P 105/63 112/65 Pulse Ox 94 95 O2 Delivery Nasal Cannula Nasal Cannula O2 Flow Rate 2.0 2.0 Intake and Output 11/21/16 11/21/16 11/22/16 15:00 23:00 07:00 Intake Total 480 ml Output Total 1800 ml Balance -1320 ml KULWINDER REID III DO Nov 22, 2016 15:33
[2016-11-22 19:30] VITALS: BP 89/50
[2016-11-22] MEDS: ATORVASTATIN CALCIUM 40 MG TABLET. PO SCH (21:26)
[2016-11-23] VITALS (8 sets, daily range): BP systolic 93–120; BP diastolic 52–61
[2016-11-23] MEDS: ACETAMINOPHEN 325 MG TABLET. PO PRN ×3 (05:44→18:23)
[2016-11-23 07:51] LABS: CALCIUM 8.3 mg/dL (8.5-10.1); CREATININE 0.8 mg/dL (0.6-1.0); GFR 71.8; POTASSIUM 3.3 mmol/L (3.5-5.1)
--- NOTE | 2016-11-23 08:11 | PDOC ---
Progress Note Subjective Subjective Doing excellent, no issues. Normotensive, sinus rhythm. Back to dry weight. ROS ROS No nausea No vomiting No SOB No pain No rash Vital Sign Vital Signs Vital Signs Date Time Temp Pulse Resp B/P Pulse Ox O2 Delivery O2 Flow Rate FiO2 11/23/16 07:42 98.5 68 17 98/58 97 Nasal Cannula 2.0 98.5 Physical Exam PHYSICAL EXAM PHYSICAL EXAM General: Alert, cooperative, no distress Heart: Regular rate, normal S1, normal S2, sternotomy: stable, clean, dry and intact. Lungs: Clear Abdomen: Soft, non tender Extremities: No clubbing, no edema, normal pulses Skin: No rashes, no breakdown Labs Lab Laboratory Tests Test 11/23/16 06:10 Sodium Level 140mmol/L (136-145) Potassium Level 3.3mmol/L (3.5-5.1) Chloride Level 104mmol/L (98-107) Carbon Dioxide Level 28mmol/L (21-32) Anion Gap 8 (6-14) Blood Urea Nitrogen 19mg/dL (7-20) Creatinine 0.8mg/dL (0.6-1.0) Estimated GFR (Cockcroft-Gault) 71.8 Glucose Level 101mg/dL (70-99) Calcium Level 8.3mg/dL (8.5-10.1) Objective Assessment POD#4, s/p CABG x 2 (GUZMÁN to LAD, SVG to OM). Doing excellent, no issues. Normotensive, sinus rhythm. Back to dry weight. Plan Plan of Care Stop Lasix Check K/Mg and replace if needed ASA and statin Low dose b-hilda Ambulation and aggressive pulmonary toilet Home tomorrow DAVID CHAMPAGNE MD November 23, 2016 08:11
[2016-11-23] MEDS ORDERED: POTASSIUM CHLORIDE 20 MEQ TABLET.ER. PO ONE (08:15)
[2016-11-23] MEDS ORDERED: MAGNESIUM HYDROXIDE 2,400 MG/30 ML ORAL.SUSP. PO PRN (08:45)
[2016-11-23] MEDS: DOCUSATE SODIUM 100 MG CAPSULE. PO SCH ×2 (09:32→21:00)
[2016-11-23] MEDS: SENNOSIDES/DOCUSATE 8.6/50MG TABLET. PO SCH ×2 (09:32→21:00)
[2016-11-23] MEDS: POLYETHYLENE GLYCOL 3350 17 GM PACKET. PO PRN (09:36)
[2016-11-23] MEDS: METOPROLOL TART IMMED RELEASE 25 MG TABLET. PO SCH ×2 (09:36→21:44)
[2016-11-23] MEDS: FAMOTIDINE 20 MG TABLET. PO SCH ×2 (09:37→21:41)
[2016-11-23] MEDS ORDERED: MAGNESIUM SULFATE 4GM 100 ML IV ONE (10:00)
[2016-11-23] MEDS: ASPIRIN ENTERIC COATED 325 MG TABLET.DR. PO SCH (10:51)
--- NOTE | 2016-11-23 11:40 | PDOC ---
GISELA CHAND FORKLIFT OPERATOR 11/23/16 1140: CARDIO Progress Notes Date and Time Date of Service 11/23/2016 Time of Evaluation 1140 Subjective Subjective: No shortness of breath, No Palpitations, No Dizziness, Other ( denies incisional pain; c/o fatigue) Vitals Vitals Vital Signs Date Time Temp Pulse Resp B/P Pulse Ox O2 Delivery O2 Flow Rate FiO2 11/23/16 11:12 98.5 68 17 98/59 91 Nasal Cannula 2.0 98.5 Weight Weight [ ] Input and Output Intake and Output Intake and Output 11/23/16 06:59 Intake Total 1400 ml Balance 1400 ml Intake Oral 1400 ml # Voids 4 Laboratory Labs Laboratory Tests Test 11/23/16 06:10 Sodium Level 140mmol/L (136-145) Potassium Level 3.3mmol/L (3.5-5.1) Chloride Level 104mmol/L (98-107) Carbon Dioxide Level 28mmol/L (21-32) Anion Gap 8 (6-14) Blood Urea Nitrogen 19mg/dL (7-20) Creatinine 0.8mg/dL (0.6-1.0) Estimated GFR (Cockcroft-Gault) 71.8 Glucose Level 101mg/dL (70-99) Calcium Level 8.3mg/dL (8.5-10.1) Magnesium Level 1.6mg/dL (1.8-2.4) Physical Exam HEENT: Neck Supple W Full Motion Chest: Symmetric, Other (pleural tube intact. Sternal drsg CDI) LUNGS: Clear to Auscultation Heart: S1S2, RRR, no murmurs, other (tele: SR; no evidence of atrial dysrhythmias) Abdomen: Soft N/T Extremities: Other (trace hand edema, SIDNEY wrap to LLE) Neurology: alert, oriented, follow commands Assessment Assessment 1. NSTEMI 2D echo with preserved LV function with an EF of 55-60%. s/p CABG with GUZMÁN to LAD and SVG to OM per CTS 2. Post-op anemia Hgb stable @ 10 3. Dyslipidemia LDLs = 115 continue high dose statin therapy 4. GERD BID H2 blockers 5. hypokalemia and hypomagnesemia replace and recheck in a.m. prior to discharge JUSTIN AGUILREA MD 11/23/16 4047: CARDIO Progress Notes Assessment Assessment Patient seen and examined. Agree with INFECTION CONTROL PRACTITIONER's assessment and plan s/p CABG, progressing well. CTS following Continue PT/OT Telemetry did not show any significant arrhythmias Possible discharge home tomorrow GISELA CHAND APRN November 23, 2016 11:40 JUSTIN AGUILERA MD November 23, 2016 16:57
--- NOTE | 2016-11-23 12:34 | PDOC ---
PROGRESS NOTES Chief Complaint Chief Complaint cc: chest pain CAD with CABG (11/19/2016) NSTEMI GERD CAD Hypokalemia rheumatoid arthritis prior Tubal Ligation Tonsillectomy constipation plan: fu with CT, card replete K, mag, lasix dc ed as per CT cont current meds, increase stool softner dc tmr as per CT History of Present Illness History of Present Illness Patient seen and evaluated at bedside. sitting upright, in no apparent distress. POD #4 s/p CABG. Patient reports post-operative incisional pain as well as some Left ankle pain, otherwise doing well. Per daughter, patient is ambulating well with PT. d/w nurse about plan of care. feels ok, no chest pain, wound heals well still low K, low Mag Vitals Vitals Vital Signs Date Time Temp Pulse Resp B/P Pulse Ox O2 Delivery O2 Flow Rate FiO2 11/23/16 11:12 98.5 68 17 98/59 91 Nasal Cannula 2.0 98.5 Physical Exam Physical Exam PHYSICAL EXAM General: Alert, cooperative, no distress Heart: Regular rate, normal S1, normal S2, sternotomy: stable, clean, dry and intact. Lungs: Clear Abdomen: Soft, non tender Extremities: No clubbing, no edema, normal pulses Skin: No rashes, no breakdown General: Alert, Oriented X3, Cooperative, No acute distress Heart: Regular rate, Normal S1, Normal S2, No murmurs, Other (sternotomy dressing clean, dry, and intact. ) Lungs: Clear, Other (No chest retractions or other signs of acute distress were present. ) Abdomen: Soft, No tenderness, No masses Extremities: No clubbing, Normal pulses Skin: No rashes, Other (The dressing and drains were clean, dry, and intact. ) Labs LABS Laboratory Tests Test 11/23/16 06:10 Sodium Level 140mmol/L (136-145) Potassium Level 3.3mmol/L (3.5-5.1) Chloride Level 104mmol/L (98-107) Carbon Dioxide Level 28mmol/L (21-32) Anion Gap 8 (6-14) Blood Urea Nitrogen 19mg/dL (7-20) Creatinine 0.8mg/dL (0.6-1.0) Estimated GFR (Cockcroft-Gault) 71.8 Glucose Level 101mg/dL (70-99) Calcium Level 8.3mg/dL (8.5-10.1) Magnesium Level 1.6mg/dL (1.8-2.4) Review of Systems Review of Systems no fever, chills, sob or chest pain Comment Review of Relevant I have reviewed the following items melva (where applicable) has been applied. Labs Laboratory Tests Test 11/22/16 05:00 11/23/16 06:10 White Blood Count 9.1x10^3/uL (4.0-11.0) Red Blood Count 3.22x10^6/uL (3.50-5.40) Hemoglobin 10.0g/dL (12.0-15.5) Hematocrit 28.7% (36.0-47.0) Mean Corpuscular Volume 89fL (79-100) Mean Corpuscular Hemoglobin 31pg (25-35) Mean Corpuscular Hemoglobin Concent 35g/dL (31-37) Red Cell Distribution Width 13.3% (11.5-14.5) Platelet Count 134x10^3/uL (140-400) Neutrophils (%) (Auto) 80% (31-73) Lymphocytes (%) (Auto) 9% (24-48) Monocytes (%) (Auto) 10% (0-9) Eosinophils (%) (Auto) 1% (0-3) Basophils (%) (Auto) 0% (0-3) Neutrophils # (Auto) 7.2x10^3uL (1.8-7.7) Lymphocytes # (Auto) 0.8x10^3/uL (1.0-4.8) Monocytes # (Auto) 0.9x10^3/uL (0.0-1.1) Eosinophils # (Auto) 0.1x10^3/uL (0.0-0.7) Basophils # (Auto) 0.0x10^3/uL (0.0-0.2) Sodium Level 141mmol/L (136-145) 140mmol/L (136-145) Potassium Level 3.3mmol/L (3.5-5.1) 3.3mmol/L (3.5-5.1) Chloride Level 106mmol/L (98-107) 104mmol/L (98-107) Carbon Dioxide Level 29mmol/L (21-32) 28mmol/L (21-32) Anion Gap 6 (6-14) 8 (6-14) Blood Urea Nitrogen 14mg/dL (7-20) 19mg/dL (7-20) Creatinine 0.7mg/dL (0.6-1.0) 0.8mg/dL (0.6-1.0) Estimated GFR (Cockcroft-Gault) 83.7 71.8 Glucose Level 126mg/dL (70-99) 101mg/dL (70-99) Calcium Level 8.3mg/dL (8.5-10.1) 8.3mg/dL (8.5-10.1) Magnesium Level 1.6mg/dL (1.8-2.4) Laboratory Tests Test 11/23/16 06:10 Sodium Level 140mmol/L (136-145) Potassium Level 3.3mmol/L (3.5-5.1) Chloride Level 104mmol/L (98-107) Carbon Dioxide Level 28mmol/L (21-32) Anion Gap 8 (6-14) Blood Urea Nitrogen 19mg/dL (7-20) Creatinine 0.8mg/dL (0.6-1.0) Estimated GFR (Cockcroft-Gault) 71.8 Glucose Level 101mg/dL (70-99) Calcium Level 8.3mg/dL (8.5-10.1) Magnesium Level 1.6mg/dL (1.8-2.4) Medications Current Medications Acetaminophen (Tylenol) 650 mg PRN Q6HRS PRN PO PAIN Last administered on 12:33; Start 11/17/16 at 10:00; Stop 11/20/16 at 16:15; Status DC Ondansetron HCl (Zofran) 4 mg PRN Q6HRS PRN IV NAUSEA/VOMITING Last administered on 11/18/16 14:01; Start 11/17/16 at 10:15; Stop 11/19/16 at 08:57 ; Status DC Pantoprazole Sodium (Protonix) 40 mg DAILYAC PO Last administered on 11/20/16 08:26; Start 11/18/16 at 07:30; Stop 11/21/16 at 16:30; Status DC Regadenoson (Lexiscan) 0.4 mg 1X ONCE IV Last administered on 11/17/16 11:45 ; Start 11/17/16 at 11:15; Stop 11/17/16 at 11:16; Status DC Aspirin (Ecotrin) 325 mg 1X ONCE PO Last administered on 11/18/16 00:06; Start 11/17/16 at 23:30; Stop 11/17/16 at 23:31; Status DC Iohexol 100 ml 100 ml STK-MED ONCE .ROUTE ; Start 11/18/16 at 10:16; Stop at 10:17; Status DC Heparin Sodium/ Sodium Chloride 1,000 ml @ As Directed STK-MED ONCE .ROUTE ; Start 11/18/16 at 10:16; Stop 11/18/16 at 10:17; Status DC Lidocaine HCl 20 ml STK-MED ONCE .ROUTE ; Start 11/18/16 at 10:16; Stop at 10:17; Status DC Nitroglycerin (Nitroglycerin) 200 mcg STK-MED ONCE .ROUTE ; Start 11/18/16 at 10 :57; Stop 11/18/16 at 10:58; Status DC Verapamil HCl (Verapamil) 5 mg STK-MED ONCE .ROUTE ; Start 11/18/16 at 10:57; Stop 11/18/16 at 10:58; Status DC Midazolam HCl (Versed) 5 mg STK-MED ONCE .ROUTE ; Start 11/18/16 at 10:57; Stop 11/18/16 at 10:58; Status DC Fentanyl Citrate (Fentanyl 5ml Vial) 250 mcg STK-MED ONCE .ROUTE ; Start at 10:57; Stop 11/18/16 at 10:58; Status DC Heparin Sodium (Porcine) (Heparin Sodium) 10,000 unit STK-MED ONCE .ROUTE ; Start 11/18/16 at 10:57; Stop 11/18/16 at 10:58; Status DC Nitroglycerin (Nitroglycerin) 200 mcg 1X ONCE IART Last administered on 11:34; Start 11/18/16 at 11:30; Stop 11/18/16 at 11:31; Status DC Verapamil HCl (Verapamil) 2.5 mg 1X ONCE IART Last administered on 11/18/16 11:34; Start 11/18/16 at 11:30; Stop 11/18/16 at 11:31; Status DC Heparin Sodium (Porcine) (Heparin Sodium) 2,500 unit 1X ONCE IART Last administered on 11/18/16 11:41; Start 11/18/16 at 11:30; Stop 11/18/16 at 11:31 ; Status DC Heparin Sodium/ Sodium Chloride 1,000 unit 1X ONCE IART Last administered on 11:34; Start 11/18/16 at 11:30; Stop 11/18/16 at 11:31; Status DC Midazolam HCl (Versed) 5 mg 1X ONCE IV Last administered on 11/18/16 11:33; Start 11/18/16 at 11:30; Stop 11/18/16 at 11:31; Status DC Fentanyl Citrate (Fentanyl 5ml Vial) 250 mcg 1X ONCE IV Last administered on 11:33; Start 11/18/16 at 11:30; Stop 11/18/16 at 11:31; Status DC Iohexol (Omnipaque 300 Mg/ml) 100 ml 1X ONCE IART Last administered on 11:34; Start 11/18/16 at 11:30; Stop 11/18/16 at 11:31; Status DC Lidocaine HCl 20 ml 20 ml 1X ONCE IJ Last administered on 11/18/16 11:34; Start 11/18/16 at 11:30; Stop 11/18/16 at 11:31; Status DC Sodium Chloride (Iv Sodium Chloride 0.45%) 1,000 ml @ 60 mls/hr [id number] IV Last administered on 11/19/16 04:33; Start 11/18/16 at 11:54; Stop 11/20/16 at 19:39; Status DC Nitroglycerin 0.4 mg 0.4 mg PRN Q5MIN PRN SL CHEST PAIN; Start 11/18/16 at 12: 00 Magnesium Sulfate/ Dextrose (Magnesium Sulfate PREMIX 2GM) 50 ml @ 25 mls/hr 1X ONCE IV Last administered on 11/18/16 16:14; Start 11/18/16 at 14:00; Stop 11/18/16 at 15:59; Status DC Potassium Chloride (Klor-Con) 20 meq 1X ONCE PO ; Start 11/18/16 at 13:45; Stop 11/18/16 at 13:46; Status DC Ondansetron HCl (Zofran) 4 mg PRN Q8HRS PRN IV NAUSEA/VOMITING Last administered on 11/22/16 08:41; Start 11/18/16 at 13:45; Stop 11/22/16 at 12:27 ; Status DC Docusate Sodium (Colace) 100 mg DAILY PO Last administered on 11/23/16 09:32; Start 11/18/16 at 14:00 Polyethylene Glycol (miraLAX PACKET) 17 gm PRN DAILY PRN PO CONSTIPATION Last administered on 11/23/16 09:36; Start 11/18/16 at 13:45 Iohexol (Omnipaque 300 Mg/ml) 75 ml 1X ONCE IV ; Start 11/18/16 at 15:00; Stop 11/18/16 at 15:01; Status DC Info (Do NOT chart on this entry -- for MONITORING) 1 each PRN DAILY PRN MC SEE COMMENTS; Start 11/18/16 at 15:00; Stop 11/20/16 at 14:59; Status DC Prochlorperazine Edisylate 10 mg 10 mg 1X ONCE IV Last administered on 15:45; Start 11/18/16 at 15:45; Stop 11/18/16 at 15:47; Status DC Potassium Chloride 70 meq/ Sodium Bicarbonate 12.5 meq/Lidocaine HCl 24 ml/ Parenteral Electrolytes 571.5 ml @ 571.5 mls/ hr 1X PERIOP ONCE IRR ; Start at 06:00; Stop 11/19/16 at 06:59; Status DC Potassium Chloride 15 meq/ Sodium Bicarbonate 12.5 meq/Parenteral Electrolytes 520 ml @ 520 mls/hr 1X PERIOP ONCE IRR ; Start 11/19/16 at 06:00; Stop at 06:59; Status DC Heparin Sodium (Porcine) 72544 unit/Lactated Ringer's 1,020 ml @ 1,020 mls/hr 1X PERIOP ONCE IRR Last administered on 11/19/16 08:42; Start 11/19/16 at 06: 00; Stop 11/19/16 at 06:59; Status DC Cefazolin Sodium/ Sodium Chloride (Ancef/Iv Sodium Chloride 0.9% 500ml Bag) 500 ml @ 500 mls/hr 1X PERIOP ONCE IRR Last administered on 11/19/16t 08:42; Start 11/19/16 at 06:00; Stop 11/19/16 at 06:59; Status DC Midazolam HCl (Versed) 2 mg STK-MED ONCE .ROUTE ; Start 11/19/16 at 06:33; Stop 11/19/16 at 06:34; Status DC Rocuronium Brilliant (Zemuron) 100 mg STK-MED ONCE .ROUTE ; Start 11/19/16 at 06: 33; Stop 11/19/16 at 06:34; Status DC Sufentanil Citrate (Sufenta) 100 mcg STK-MED ONCE .ROUTE ; Start 11/19/16 at 06: 33; Stop 11/19/16 at 06:34; Status DC Isoflurane 90 ml 90 ml STK-MED ONCE IH ; Start 11/19/16 at 06:35; Stop 11/19/16 at 06:36; Status DC Nitroglycerin/ Dextrose (Nitroglycerin Drip) 250 ml @ As Directed STK-MED ONCE IV ; Start 11/19/16 at 06:35; Stop 11/19/16 at 06:36; Status DC Aminocaproic Acid (Amicar) 5,000 mg STK-MED ONCE IV ; Start 11/19/16 at 06:35; Stop 11/19/16 at 06:36; Status DC Aminocaproic Acid (Amicar) 5,000 mg STK-MED ONCE IV ; Start 11/19/16 at 06:35; Stop 11/19/16 at 06:36; Status DC Aminocaproic Acid (Amicar) 5,000 mg STK-MED ONCE IV ; Start 11/19/16 at 06:35; Stop 11/19/16 at 06:36; Status DC Etomidate (Amidate) 20 mg STK-MED ONCE IV ; Start 11/19/16 at 06:35; Stop at 06:36; Status DC Lidocaine HCl (Lidocaine HCl 2% Abboject) 100 mg STK-MED ONCE .ROUTE ; Start at 06:35; Stop 11/19/16 at 06:36; Status DC Phenylephrine HCl (Ron-Synephrine Inj) 10 mg STK-MED ONCE .ROUTE ; Start at 06:35; Stop 11/19/16 at 06:36; Status DC Phenylephrine HCl (Ron-Synephrine Inj) 10 mg STK-MED ONCE .ROUTE ; Start at 06:35; Stop 11/19/16 at 06:36; Status DC Phenylephrine HCl (Ron-Synephrine Inj) 10 mg STK-MED ONCE .ROUTE ; Start at 06:35; Stop 11/19/16 at 06:36; Status DC Heparin Sodium (Porcine) (Heparin Sodium) 10,000 unit STK-MED ONCE .ROUTE ; Start 11/19/16 at 06:35; Stop 11/19/16 at 06:36; Status DC Heparin Sodium (Porcine) (Heparin Sodium) 10,000 unit STK-MED ONCE .ROUTE ; Start 11/19/16 at 06:35; Stop 11/19/16 at 06:36; Status DC Heparin Sodium (Porcine) (Heparin Sodium) 10,000 unit STK-MED ONCE .ROUTE ; Start 11/19/16 at 06:35; Stop 11/19/16 at 06:36; Status DC Heparin Sodium (Porcine) (Heparin Sodium) 10,000 unit STK-MED ONCE .ROUTE ; Start 11/19/16 at 06:35; Stop 11/19/16 at 06:36; Status DC Ephedrine Sulfate 50 mg STK-MED ONCE IV ; Start 11/19/16 at 06:36; Stop at 06:37; Status DC Lidocaine HCl 1 ml STK-MED ONCE .ROUTE ; Start 11/19/16 at 06:39; Stop 11/19/16 at 06:40; Status DC Cellulose 1 each STK-MED ONCE .ROUTE Last administered on 11/19/16 08:42; Start 11/19/16 at 06:57; Stop 11/19/16 at 06:58; Status DC Vancomycin HCl (Vanco) 10 gm STK-MED ONCE .ROUTE Last administered on 08:42; Start 11/19/16 at 06:57; Stop 11/19/16 at 06:58; Status DC Papaverine HCl 60 mg STK-MED ONCE .ROUTE Last administered on 11/19/16 08:42; Start 11/19/16 at 06:57; Stop 11/19/16 at 06:58; Status DC Aspirin (Aspirin) 300 mg STK-MED ONCE .ROUTE Last administered on 11/19/16 13: 06; Start 11/19/16 at 06:58; Stop 11/19/16 at 06:59; Status DC Sodium Chloride 50 ml 50 ml STK-MED ONCE IJ Last administered on 11/19/16 08: 42; Start 11/19/16 at 06:58; Stop 11/19/16 at 06:59; Status DC Vancomycin HCl 250 ml @ As Directed STK-MED ONCE .ROUTE ; Start 11/19/16 at 07: 07; Stop 11/19/16 at 07:08; Status DC Lactated Ringer's 1,000 ml @ 75 mls/hr [id number] IV Last administered on 07:36; Start 11/19/16 at 07:30; Stop 11/20/16 at 19:39; Status DC Vancomycin HCl 250 ml @ 250 mls/hr 1X PREOP IV ; Start 11/19/16 at 08:00; Stop 11/20/16 at 07:59; Status DC Glycopyrrolate (Robinul) 1 mg STK-MED ONCE .ROUTE ; Start 11/19/16 at 08:51; Stop 11/19/16 at 08:52; Status DC Rocuronium Brilliant 100 mg 100 mg STK-MED ONCE .ROUTE ; Start 11/19/16 at 08:51; Stop 11/19/16 at 08:52; Status DC Vancomycin HCl/ Sodium Chloride (Iv Sodium Chloride 0.9% 500ml Bag) 500 ml @ 0 mls/hr 1X ONCE IV Last administered on 11/19/16 09:48; Start 11/19/16 at 09: 00; Stop 11/19/16 at 09:15; Status DC Sufentanil Citrate (Sufenta) 100 mcg STK-MED ONCE .ROUTE ; Start 11/19/16 at 08: 56; Stop 11/19/16 at 08:57; Status DC Midazolam HCl (Versed) 5 mg STK-MED ONCE .ROUTE ; Start 11/19/16 at 09:25; Stop 11/19/16 at 09:26; Status DC Protamine Sulfate 50 mg STK-MED ONCE IV ; Start 11/19/16 at 11:50; Stop at 11:51; Status DC Protamine Sulfate 250 mg STK-MED ONCE IV ; Start 11/19/16 at 11:50; Stop at 11:51; Status DC Protamine Sulfate 250 mg STK-MED ONCE IV ; Start 11/19/16 at 11:57; Stop at 11:58; Status DC Lidocaine HCl (Lidocaine HCl 2% Abboject) 100 mg STK-MED ONCE .ROUTE ; Start at 12:26; Stop 11/19/16 at 12:27; Status DC Mannitol (Mannitol) 12.5 g STK-MED ONCE .ROUTE ; Start 11/19/16 at 12:26; Stop 11/19/16 at 12:27; Status DC Calcium Chloride 1000 mg 1,000 mg STK-MED ONCE IV ; Start 11/19/16 at 12:26; Stop 11/19/16 at 12:27; Status DC Albumin Human (Albuminar) 100 ml @ As Directed STK-MED ONCE IV ; Start at 12:26; Stop 11/19/16 at 12:27; Status DC Heparin Sodium (Porcine) 30,000 unit STK-MED ONCE .ROUTE ; Start 11/19/16 at 12: 26; Stop 11/19/16 at 12:27; Status DC Magnesium Sulfate 5 gm STK-MED ONCE .ROUTE ; Start 11/19/16 at 12:26; Stop 11/19 at 12:27; Status DC Sodium Chloride 3 ml 3 ml PRN Q12HR PRN IV AFTER MEDS AND BLOOD DRAWS; Start at 13:15 Lactated Ringer's 1,000 ml @ 30 mls/hr Q24H IV Last administered on 11/20/16t 19:36; Start 11/19/16 at 13:12; Stop 11/21/16 at 16:30; Status DC Insulin Human Regular/Sodium Chloride (Novolin R Vial/ Iv Normal Saline 150ml) 151.5 ml @ 0 mls/hr CONT PRN PRN IV SEE I/O RECORD; Start 11/19/16 at 13:15; Stop 11/21/16 at 16:30; Status DC Dextrose 25 gm 25 gm PRN Q15MIN PRN IV LOW BLOOD SUGAR; Start 11/19/16 at 13:15 Nitroglycerin/ Dextrose 250 ml @ 0 mls/hr CONT PRN PRN IV SEE I/O RECORD; Start 11/19/16 at 13:15; Stop 11/21/16 at 16:30; Status DC Dopamine HCl/ Dextrose 250 ml @ 0 mls/hr CONT PRN PRN IV SEE I/O RECORD; Start 11/19/16 at 13:15; Stop 11/21/16 at 16:30; Status DC Dobutamine HCl/ Dextrose 250 ml @ 0 mls/hr CONT PRN PRN IV SEE I/O RECORD; Start 11/19/16 at 13:15; Stop 11/21/16 at 16:30; Status DC Phenylephrine HCl 20 mg/Sodium Chloride 252 ml @ 0 mls/hr CONT PRN PRN IV HYPOTENSION; Start 11/19/16 at 13:15; Stop 11/21/16 at 16:30; Status DC Epinephrine HCl/ Sodium Chloride (Adrenalin/Iv Sodium Chloride 0.9% 250ml) 254 ml @ 0 mls/hr CONT PRN PRN IV POST CV SURGERY; Start 11/19/16 at 13:15; Stop at 16:30; Status DC Info 1 ea CONT PRN PRN MC SEE COMMENTS; Start 11/19/16 at 13:15; Stop 11/23/16 at 08:23; Status DC Info 1 ea 1 ea CONT PRN PRN MC SEE COMMENTS; Start 11/19/16 at 13:15; Stop at 16:30; Status DC Magnesium Sulfate/ Dextrose (Magnesium Sulfate PREMIX 1GM) 100 ml @ 100 mls/hr PRN DAILY PRN IV FOR MAG < 2.2 Last administered on 11/20/16 08:28; Start at 13:15; Stop 11/23/16 at 08:23; Status DC Famotidine (Pepcid) 20 mg BID IVP Last administered on 11/20/16 21:11; Start 11/19/16 at 21:00; Stop 11/21/16 at 07:54; Status DC Ondansetron HCl (Zofran) 4 mg PRN Q4HRS PRN IV NAUSEA/VOMITING Last administered on 11/19/16 20:43; Start 11/19/16 at 13:15 Prochlorperazine Edisylate (Compazine) 10 mg PRN Q6HRS PRN IV NAUSEA/VOMITING Last administered on 11/20/16 13:10; Start 11/19/16 at 13:15 Morphine Sulfate 2 mg PRN Q1HR PRN IV PAIN Last administered on 11/19/16 15:30 ; Start 11/19/16 at 13:15 Acetaminophen (Tylenol) 650 mg PRN Q4HRS PRN PO MILD PAIN / TEMP Last administered on 11/23/16 05:44; Start 11/19/16 at 13:15 Acetaminophen (Acetaminophen Supp) 650 mg PRN Q4HRS PRN TN MILD PAIN / TEMP; Start 11/19/16 at 13:15; Stop 11/23/16 at 08:23; Status DC Meperidine HCl 12.5 mg 12.5 mg PRN Q15MIN PRN IV SHIVERING; Start 11/19/16 at 13:15; Stop 11/20/16 at 13:14; Status DC Propofol (Diprivan) 100 ml @ 0 mls/hr CONT PRN PRN IV POSTOP SEDATION UNTIL EXTUBATE Last administered on 11/19/16 15:47; Start 11/19/16 at 13:15; Stop at 16:30; Status DC Senna/Docusate Sodium (Senna Plus) 1 tab BID PO Last administered on 11/23/16 09:32; Start 11/19/16 at 21:00 Bisacodyl (Dulcolax Supp) 10 mg PRN DAILY PRN TN NO BOWEL MOVEMENT; Start 11/19 at 13:15 Chlorhexidine Gluconate (Peridex) 15 ml BID MM ; Start 11/19/16 at 21:00; Stop 11/20/16 at 04:44; Status DC Aspirin 325 mg 325 mg [id number] PO Last administered on 11/23/16 10:51; Start 11/20/16 at 08:00 Nicardipine HCl 50 mg/Sodium Chloride 270 ml @ 0 mls/hr CONT PRN PRN IV PER PROTOCOL; Start 11/19/16 at 13:15; Stop 11/21/16 at 16:30; Status DC Clevidipine (Cleviprex) 100 ml @ 0 mls/hr CONT PRN IV PER PROTOCOL; Start 11/19 at 13:15; Stop 11/21/16 at 16:30; Status DC Acetaminophen/ Hydrocodone Bitart (Lortab 5/325) 1 tab PRN Q4HRS PRN PO MILD PAIN; Start 11/19/16 at 13:15 Acetaminophen/ Hydrocodone Bitart 2 tab 2 tab PRN Q4HRS PRN PO MODERATE PAIN, SEVERE PAIN Last administered on 11/20/16 05:43; Start 11/19/16 at 13:15 Cefazolin Sodium/ Dextrose 50 ml @ 100 mls/hr Q8H IV ; Start 11/19/16 at 13:30 ; Stop 11/20/16 at 21:59; Status UNV Potassium Chloride 50 ml @ 50 mls/hr 1X ONCE IV Last administered on 15:38; Start 11/19/16 at 15:00; Stop 11/19/16 at 15:59; Status DC Albumin Human 250 ml @ 62.5 mls/hr CONT PRN IV SEE COMMENTS Last administered on 11/19/16 15:58; Start 11/19/16 at 15:15; Stop 11/21/16 at 16:30; Status DC Phenylephrine HCl 20 mg/Sodium Chloride 252 ml @ 0 mls/hr CONT PRN IV SEE I/O RECORD Last administered on 11/19/16 16:26; Start 11/19/16 at 16:15; Stop 11/21 at 16:30; Status DC Vancomycin HCl/ Sodium Chloride (Iv Sodium Chloride 0.9% 500ml Bag) 500 ml @ 250 mls/hr Q12H IV Last administered on 11/20/16 21:11; Start 11/19/16 at 20: 00; Stop 11/20/16 at 21:59; Status DC Lidocaine HCl 1 ml STK-MED ONCE .ROUTE ; Start 11/19/16 at 20:47; Stop 11/19/16 at 20:48; Status DC Sodium Bicarbonate 50 meq 1X ONCE IV Last administered on 11/19/16 22:13; Start 11/19/16 at 22:30; Stop 11/19/16 at 22:31; Status DC Furosemide 40 mg 40 mg 1X ONCE IVP Last administered on 11/20/16 05:42; Start 11/20/16 at 05:00; Stop 11/20/16 at 05:01; Status DC Potassium Chloride 50 ml @ 50 mls/hr 1X ONCE IV Last administered on 09:26; Start 11/20/16 at 08:30; Stop 11/20/16 at 09:29; Status DC Potassium Chloride (KCl Premix 20meq) 50 ml @ 50 mls/hr 1X ONCE IV ; Start at 08:30; Stop 11/20/16 at 09:29; Status UNV Vancomycin HCl 1 gm STK-MED ONCE .ROUTE ; Start 11/19/16 at 07:00; Stop at 08:37; Status DC Ketorolac Tromethamine (Toradol) 15 mg 1X ONCE IV Last administered on 13:10; Start 11/20/16 at 13:00; Stop 11/20/16 at 13:03; Status DC Atorvastatin Calcium (Lipitor) 40 mg QHS PO Last administered on 11/22/16 21: 26; Start 11/20/16 at 21:00 Furosemide (Lasix) 20 mg [id number] IVP Last administered on 11/21/16 09:45; Start 11/20/16 at 18:00; Stop 11/22/16 at 14:08; Status DC Famotidine (Pepcid) 20 mg BID PO Last administered on 11/23/16 09:37; Start at 09:00 Tramadol HCl (Ultram) 50 mg PRN Q6HRS PRN PO PAIN Last administered on 21:56; Start 11/21/16 at 14:00 Metoprolol Tartrate (Lopressor) 12.5 mg BID PO Last administered on 11/23/16 09 :36; Start 11/21/16 at 14:00 Potassium Chloride (Klor-Con) 40 meq 1X ONCE PO Last administered on 09:34; Start 11/22/16 at 09:15; Stop 11/22/16 at 09:21; Status DC Furosemide (Lasix) 40 mg 1X ONCE IVP ; Start 11/22/16 at 09:15; Stop 11/22/16 at 09:21; Status DC Furosemide (Lasix) 20 mg NOON IVP Last administered on 11/22/16 14:15; Start 11/22/16 at 14:15; Stop 11/23/16 at 08:23; Status DC Potassium Chloride (Klor-Con) 40 meq 1X ONCE PO Last administered on 11/23/16 09:31; Start 11/23/16 at 08:15; Stop 11/23/16 at 08:16; Status DC Magnesium Hydroxide 2400 mg 2,400 mg PRN DAILY PRN PO CONSTIPATION Last administered on 11/23/16 09:31; Start 11/23/16 at 08:45 Magnesium Sulfate/ Dextrose (Magnesium Sulfate PREMIX 4GM) 100 ml @ 25 mls/hr 1X ONCE IV Last administered on 11/23/16 10:51; Start 11/23/16 at 10:00; Stop 11/23/16 at 13:59 Vitals/I & O Vital Sign - Last 24 Hours 11/22/16 11/22/16 11/22/16 11/22/16 15:03 19:30 19:30 21:27 Temp 97.7 97.3 97.7 97.3 Pulse 73 73 73 Resp 20 18 B/P 112/65 89/50 99/57 Pulse Ox 95 96 O2 Delivery Nasal Cannula Nasal Cannula Nasal Cannula O2 Flow Rate 2.0 2.0 2.0 11/23/16 11/23/16 11/23/16 11/23/16 00:14 03:10 07:42 09:36 Temp 97.9 98.8 98.5 97.9 98.8 98.5 Pulse 67 72 68 78 Resp 18 16 B/P 108/52 97/59 98/58 105/56 Pulse Ox 95 97 97 O2 Delivery Nasal Cannula Nasal Cannula Nasal Cannula O2 Flow Rate 2.0 2.0 2.0 11/23/16 11:12 Temp 98.5 98.5 Pulse 68 Resp 17 B/P 98/59 Pulse Ox 91 O2 Delivery Nasal Cannula O2 Flow Rate 2.0 Intake and Output 11/22/16 11/22/16 11/23/16 15:00 23:00 07:00 Intake Total 1200 ml 200 ml Balance 1200 ml 200 ml BRANDON FELIX MD November 23, 2016 12:34
[2016-11-23] MEDS: MAGNESIUM HYDROXIDE 2,400 MG/30 ML ORAL.SUSP. PO SCH (21:00)
[2016-11-23] MEDS: ATORVASTATIN CALCIUM 40 MG TABLET. PO SCH (21:42)
[2016-11-24] MEDS: ACETAMINOPHEN 325 MG TABLET. PO PRN ×3 (00:01→12:34)
[2016-11-24 03:36] VITALS: BP 97/54
[2016-11-24 05:32] LABS: MAGNESIUM 2.2 mg/dL (1.8-2.4); POTASSIUM 3.6 mmol/L (3.5-5.1)
[2016-11-24 07:00] VITALS: BP 102/59
[2016-11-24] MEDS: DOCUSATE SODIUM 100 MG CAPSULE. PO SCH (07:50)
[2016-11-24] MEDS: MAGNESIUM HYDROXIDE 2,400 MG/30 ML ORAL.SUSP. PO SCH (07:50)
[2016-11-24] MEDS: SENNOSIDES/DOCUSATE 8.6/50MG TABLET. PO SCH (07:51)
[2016-11-24 08:07] VITALS: BP 102/59
[2016-11-24] MEDS ORDERED: POTASSIUM CHLORIDE 20 MEQ TABLET.ER. PO ONE (08:30)
[2016-11-24] MEDS: FAMOTIDINE 20 MG TABLET. PO SCH (09:16)
[2016-11-24] MEDS: ASPIRIN ENTERIC COATED 325 MG TABLET.DR. PO SCH (09:16)
[2016-11-24] MEDS: METOPROLOL TART IMMED RELEASE 25 MG TABLET. PO SCH (09:18)
--- NOTE | 2016-11-24 10:18 | PDOC ---
CARDIO Progress Notes Date and Time Date of Service 11/24/2016 Time of Evaluation 1014 Subjective Subjective: No Palpitations, No Dizziness, Other (became mildly dyspneic with ambulation earlier today) Vitals Vitals Vital Signs Date Time Temp Pulse Resp B/P Pulse Ox O2 Delivery O2 Flow Rate FiO2 11/24/16 09:18 74 105/59 11/24/16 08:31 Room Air 11/24/16 07:00 97.6 17 94 97.6 11/23/16 14:32 2.0 Weight Weight [ ] Input and Output Intake and Output Intake and Output 11/24/16 07:00 Intake Total 2020 ml Output Total 1100 ml Balance 920 ml Intake Oral 1920 ml IV Total 100 ml Output Urine Total 1100 ml # Voids 5 # Bowel Movements 6 Laboratory Labs Laboratory Tests Test 11/24/16 03:40 Potassium Level 3.6mmol/L (3.5-5.1) Magnesium Level 2.2mg/dL (1.8-2.4) Physical Exam HEENT: Neck Supple W Full Motion Chest: Symmetric LUNGS: Clear to Auscultation Heart: S1S2, RRR, no murmurs, other (tele: SR; PAF with rates ~ 145 @ 0633; longest 10 beats) Abdomen: Soft N/T Extremities: No Edema, Other (trace hand edema, SIDNEY wrap to LLE) Neurology: alert, oriented, follow commands Assessment Assessment 1. NSTEMI 2D echo with preserved LV function with an EF of 55-60%. s/p CABG with GUZMÁN to LAD and SVG to OM per CTS 2. Post-op anemia Hgb stable @ 10 3. Dyslipidemia LDLs = 115 continue high dose statin therapy 4. GERD BID H2 blockers 5. hypokalemia and hypomagnesemia k = 3.6 this a.m. and was supplemented mg = 2.2 6. PAF 3 runs with rates ~ 145; longest 10 beats patient with palpitations discussed with CTS - will start amio gtt & cancel discharge GISELA [employer] November 24, 2016 10:18
[2016-11-24] MEDS ORDERED: AMIODARONE 900 MG in IV DEXTROSE 5% 500 ML IV PRN (10:30)
[2016-11-24] MEDS ORDERED: AMIODARONE 150 MG in IV DEXTROSE 5% 100 ML IV ONE (10:30)
[2016-11-24 10:38] VITALS: BP 109/57
[2016-11-24 11:26] VITALS: BP 118/58
[2016-11-24] MEDS ORDERED: AMIODARONE HCL 200 MG TABLET. PO SCH (13:15)
[2016-11-24] MEDS ORDERED: TRAM50TA PO (13:19)
[2016-11-24] MEDS ORDERED: METO25TA4 PO (13:19)
[2016-11-24] MEDS ORDERED: ATOR40TA59 PO (13:19)
--- NOTE | 2016-11-24 13:23 | PDOC ---
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 Sitting upright, stable and in no apparent distress. POD #5 s/p CABG. Exhibits post-op incisional pain. d/w with Nurse Practitioner Gaetano about plan of care. Patient eager to be D/C Vitals Vitals Vital Signs Date Time Temp Pulse Resp B/P Pulse Ox O2 Delivery O2 Flow Rate FiO2 11/24/16 11:26 97.8 69 17 118/58 96 Room Air 97.8 11/23/16 14:32 2.0 Physical Exam Physical Exam PHYSICAL EXAM General: Alert, cooperative, no distress Heart: Regular rate, normal S1, normal S2, sternotomy: stable, clean, dry and intact. Lungs: Clear Abdomen: Soft, non tender Extremities: No clubbing, no edema, normal pulses Skin: No rashes, no breakdown General: Alert, Oriented X3, Cooperative, No acute distress Heart: Regular rate, Normal S1, Normal S2, No murmurs, Other (sternotomy dressing clean, dry, and intact. ) Lungs: Clear, Other (No chest retractions or other signs of acute distress were present. ) Abdomen: Soft, No hepatosplenomegaly, No masses Extremities: No clubbing, Normal pulses Skin: No rashes, Other (The dressing and drains were clean, dry, and intact. ) Labs LABS Laboratory Tests Test 11/24/16 03:40 Potassium Level 3.6mmol/L (3.5-5.1) Magnesium Level 2.2mg/dL (1.8-2.4) Review of Systems Review of Systems No vomiting No blurry vision/RAMÍREZ No fevers/chills Assessment and Plan Assessmemt and Plan Problems Medical Problems: (1) Hyperlipidemia Status: Acute (2) NSTEMI (non-ST elevated myocardial infarction) Status: Acute 3. CAD with CABG (11/19/2016) 4. NSTEMI 5. GERD 6. CAD 7. Hypokalemia 8. Rheumatoid arthritis 9. Prior Tubal Ligation 10. Tonsillectomy 11. Constipation Plan: -Continue current medications and adjust accordingly as needed -Continue to FU with cardiology -Continue to monitor K, Mag -Both have been previously low -Possible D/C today if sub-specialties agree -Encourage ambulation as tolerated -Continue to involve PT/OT Problems: Comment Review of Relevant I have reviewed the following items melva (where applicable) has been applied. Labs Laboratory Tests Test 11/23/16 06:10 11/24/16 03:40 Sodium Level 140mmol/L (136-145) Potassium Level 3.3mmol/L (3.5-5.1) 3.6mmol/L (3.5-5.1) Chloride Level 104mmol/L (98-107) Carbon Dioxide Level 28mmol/L (21-32) Anion Gap 8 (6-14) Blood Urea Nitrogen 19mg/dL (7-20) Creatinine 0.8mg/dL (0.6-1.0) Estimated GFR (Cockcroft-Gault) 71.8 Glucose Level 101mg/dL (70-99) Calcium Level 8.3mg/dL (8.5-10.1) Magnesium Level 1.6mg/dL (1.8-2.4) 2.2mg/dL (1.8-2.4) Laboratory Tests Test 11/24/16 03:40 Potassium Level 3.6mmol/L (3.5-5.1) Magnesium Level 2.2mg/dL (1.8-2.4) Medications Current Medications Acetaminophen (Tylenol) 650 mg PRN Q6HRS PRN PO PAIN Last administered on 12:33; Start 11/17/16 at 10:00; Stop 11/20/16 at 16:15; Status DC Ondansetron HCl (Zofran) 4 mg PRN Q6HRS PRN IV NAUSEA/VOMITING Last administered on 11/18/16 14:01; Start 11/17/16 at 10:15; Stop 11/19/16 at 08:57 ; Status DC Pantoprazole Sodium (Protonix) 40 mg DAILYAC PO Last administered on 11/20/16 08:26; Start 11/18/16 at 07:30; Stop 11/21/16 at 16:30; Status DC Regadenoson (Lexiscan) 0.4 mg 1X ONCE IV Last administered on 11/17/16 11:45 ; Start 11/17/16 at 11:15; Stop 11/17/16 at 11:16; Status DC Aspirin (Ecotrin) 325 mg 1X ONCE PO Last administered on 11/18/16 00:06; Start 11/17/16 at 23:30; Stop 11/17/16 at 23:31; Status DC Iohexol 100 ml 100 ml STK-MED ONCE .ROUTE ; Start 11/18/16 at 10:16; Stop at 10:17; Status DC Heparin Sodium/ Sodium Chloride 1,000 ml @ As Directed STK-MED ONCE .ROUTE ; Start 11/18/16 at 10:16; Stop 11/18/16 at 10:17; Status DC Lidocaine HCl 20 ml STK-MED ONCE .ROUTE ; Start 11/18/16 at 10:16; Stop at 10:17; Status DC Nitroglycerin (Nitroglycerin) 200 mcg STK-MED ONCE .ROUTE ; Start 11/18/16 at 10 :57; Stop 11/18/16 at 10:58; Status DC Verapamil HCl (Verapamil) 5 mg STK-MED ONCE .ROUTE ; Start 11/18/16 at 10:57; Stop 11/18/16 at 10:58; Status DC Midazolam HCl (Versed) 5 mg STK-MED ONCE .ROUTE ; Start 11/18/16 at 10:57; Stop 11/18/16 at 10:58; Status DC Fentanyl Citrate (Fentanyl 5ml Vial) 250 mcg STK-MED ONCE .ROUTE ; Start at 10:57; Stop 11/18/16 at 10:58; Status DC Heparin Sodium (Porcine) (Heparin Sodium) 10,000 unit STK-MED ONCE .ROUTE ; Start 11/18/16 at 10:57; Stop 11/18/16 at 10:58; Status DC Nitroglycerin (Nitroglycerin) 200 mcg 1X ONCE IART Last administered on 11:34; Start 11/18/16 at 11:30; Stop 11/18/16 at 11:31; Status DC Verapamil HCl (Verapamil) 2.5 mg 1X ONCE IART Last administered on 11/18/16 11:34; Start 11/18/16 at 11:30; Stop 11/18/16 at 11:31; Status DC Heparin Sodium (Porcine) (Heparin Sodium) 2,500 unit 1X ONCE IART Last administered on 11/18/16 11:41; Start 11/18/16 at 11:30; Stop 11/18/16 at 11:31 ; Status DC Heparin Sodium/ Sodium Chloride 1,000 unit 1X ONCE IART Last administered on 11:34; Start 11/18/16 at 11:30; Stop 11/18/16 at 11:31; Status DC Midazolam HCl (Versed) 5 mg 1X ONCE IV Last administered on 11/18/16 11:33; Start 11/18/16 at 11:30; Stop 11/18/16 at 11:31; Status DC Fentanyl Citrate (Fentanyl 5ml Vial) 250 mcg 1X ONCE IV Last administered on 11:33; Start 11/18/16 at 11:30; Stop 11/18/16 at 11:31; Status DC Iohexol (Omnipaque 300 Mg/ml) 100 ml 1X ONCE IART Last administered on 11:34; Start 11/18/16 at 11:30; Stop 11/18/16 at 11:31; Status DC Lidocaine HCl 20 ml 20 ml 1X ONCE IJ Last administered on 11/18/16 11:34; Start 11/18/16 at 11:30; Stop 11/18/16 at 11:31; Status DC Sodium Chloride (Iv Sodium Chloride 0.45%) 1,000 ml @ 60 mls/hr [id number] IV Last administered on 11/19/16 04:33; Start 11/18/16 at 11:54; Stop 11/20/16 at 19:39; Status DC Nitroglycerin 0.4 mg 0.4 mg PRN Q5MIN PRN SL CHEST PAIN; Start 11/18/16 at 12: 00 Magnesium Sulfate/ Dextrose (Magnesium Sulfate PREMIX 2GM) 50 ml @ 25 mls/hr 1X ONCE IV Last administered on 11/18/16 16:14; Start 11/18/16 at 14:00; Stop 11/18/16 at 15:59; Status DC Potassium Chloride (Klor-Con) 20 meq 1X ONCE PO ; Start 11/18/16 at 13:45; Stop 11/18/16 at 13:46; Status DC Ondansetron HCl (Zofran) 4 mg PRN Q8HRS PRN IV NAUSEA/VOMITING Last administered on 11/22/16 08:41; Start 11/18/16 at 13:45; Stop 11/22/16 at 12:27 ; Status DC Docusate Sodium (Colace) 100 mg DAILY PO Last administered on 11/23/16 09:32; Start 11/18/16 at 14:00; Stop 11/23/16 at 12:33; Status DC Polyethylene Glycol (miraLAX PACKET) 17 gm PRN DAILY PRN PO CONSTIPATION Last administered on 11/23/16 09:36; Start 11/18/16 at 13:45 Iohexol (Omnipaque 300 Mg/ml) 75 ml 1X ONCE IV ; Start 11/18/16 at 15:00; Stop 11/18/16 at 15:01; Status DC Info (Do NOT chart on this entry -- for MONITORING) 1 each PRN DAILY PRN MC SEE COMMENTS; Start 11/18/16 at 15:00; Stop 11/20/16 at 14:59; Status DC Prochlorperazine Edisylate 10 mg 10 mg 1X ONCE IV Last administered on 15:45; Start 11/18/16 at 15:45; Stop 11/18/16 at 15:47; Status DC Potassium Chloride 70 meq/ Sodium Bicarbonate 12.5 meq/Lidocaine HCl 24 ml/ Parenteral Electrolytes 571.5 ml @ 571.5 mls/ hr 1X PERIOP ONCE IRR ; Start at 06:00; Stop 11/19/16 at 06:59; Status DC Potassium Chloride 15 meq/ Sodium Bicarbonate 12.5 meq/Parenteral Electrolytes 520 ml @ 520 mls/hr 1X PERIOP ONCE IRR ; Start 11/19/16 at 06:00; Stop at 06:59; Status DC Heparin Sodium (Porcine) 12520 unit/Lactated Ringer's 1,020 ml @ 1,020 mls/hr 1X PERIOP ONCE IRR Last administered on 11/19/16 08:42; Start 11/19/16 at 06: 00; Stop 11/19/16 at 06:59; Status DC Cefazolin Sodium/ Sodium Chloride (Ancef/Iv Sodium Chloride 0.9% 500ml Bag) 500 ml @ 500 mls/hr 1X PERIOP ONCE IRR Last administered on 11/19/16t 08:42; Start 11/19/16 at 06:00; Stop 11/19/16 at 06:59; Status DC Midazolam HCl (Versed) 2 mg STK-MED ONCE .ROUTE ; Start 11/19/16 at 06:33; Stop 11/19/16 at 06:34; Status DC Rocuronium Murdock (Zemuron) 100 mg STK-MED ONCE .ROUTE ; Start 11/19/16 at 06: 33; Stop 11/19/16 at 06:34; Status DC Sufentanil Citrate (Sufenta) 100 mcg STK-MED ONCE .ROUTE ; Start 11/19/16 at 06: 33; Stop 11/19/16 at 06:34; Status DC Isoflurane 90 ml 90 ml STK-MED ONCE IH ; Start 11/19/16 at 06:35; Stop 11/19/16 at 06:36; Status DC Nitroglycerin/ Dextrose (Nitroglycerin Drip) 250 ml @ As Directed STK-MED ONCE IV ; Start 11/19/16 at 06:35; Stop 11/19/16 at 06:36; Status DC Aminocaproic Acid (Amicar) 5,000 mg STK-MED ONCE IV ; Start 11/19/16 at 06:35; Stop 11/19/16 at 06:36; Status DC Aminocaproic Acid (Amicar) 5,000 mg STK-MED ONCE IV ; Start 11/19/16 at 06:35; Stop 11/19/16 at 06:36; Status DC Aminocaproic Acid (Amicar) 5,000 mg STK-MED ONCE IV ; Start 11/19/16 at 06:35; Stop 11/19/16 at 06:36; Status DC Etomidate (Amidate) 20 mg STK-MED ONCE IV ; Start 11/19/16 at 06:35; Stop at 06:36; Status DC Lidocaine HCl (Lidocaine HCl 2% Abboject) 100 mg STK-MED ONCE .ROUTE ; Start at 06:35; Stop 11/19/16 at 06:36; Status DC Phenylephrine HCl (Ron-Synephrine Inj) 10 mg STK-MED ONCE .ROUTE ; Start at 06:35; Stop 11/19/16 at 06:36; Status DC Phenylephrine HCl (Ron-Synephrine Inj) 10 mg STK-MED ONCE .ROUTE ; Start at 06:35; Stop 11/19/16 at 06:36; Status DC Phenylephrine HCl (Ron-Synephrine Inj) 10 mg STK-MED ONCE .ROUTE ; Start at 06:35; Stop 11/19/16 at 06:36; Status DC Heparin Sodium (Porcine) (Heparin Sodium) 10,000 unit STK-MED ONCE .ROUTE ; Start 11/19/16 at 06:35; Stop 11/19/16 at 06:36; Status DC Heparin Sodium (Porcine) (Heparin Sodium) 10,000 unit STK-MED ONCE .ROUTE ; Start 11/19/16 at 06:35; Stop 11/19/16 at 06:36; Status DC Heparin Sodium (Porcine) (Heparin Sodium) 10,000 unit STK-MED ONCE .ROUTE ; Start 11/19/16 at 06:35; Stop 11/19/16 at 06:36; Status DC Heparin Sodium (Porcine) (Heparin Sodium) 10,000 unit STK-MED ONCE .ROUTE ; Start 11/19/16 at 06:35; Stop 11/19/16 at 06:36; Status DC Ephedrine Sulfate 50 mg STK-MED ONCE IV ; Start 11/19/16 at 06:36; Stop at 06:37; Status DC Lidocaine HCl 1 ml STK-MED ONCE .ROUTE ; Start 11/19/16 at 06:39; Stop 11/19/16 at 06:40; Status DC Cellulose 1 each STK-MED ONCE .ROUTE Last administered on 11/19/16 08:42; Start 11/19/16 at 06:57; Stop 11/19/16 at 06:58; Status DC Vancomycin HCl (Vanco) 10 gm STK-MED ONCE .ROUTE Last administered on 08:42; Start 11/19/16 at 06:57; Stop 11/19/16 at 06:58; Status DC Papaverine HCl 60 mg STK-MED ONCE .ROUTE Last administered on 11/19/16 08:42; Start 11/19/16 at 06:57; Stop 11/19/16 at 06:58; Status DC Aspirin (Aspirin) 300 mg STK-MED ONCE .ROUTE Last administered on 11/19/16 13: 06; Start 11/19/16 at 06:58; Stop 11/19/16 at 06:59; Status DC Sodium Chloride 50 ml 50 ml STK-MED ONCE IJ Last administered on 11/19/16 08: 42; Start 11/19/16 at 06:58; Stop 11/19/16 at 06:59; Status DC Vancomycin HCl 250 ml @ As Directed STK-MED ONCE .ROUTE ; Start 11/19/16 at 07: 07; Stop 11/19/16 at 07:08; Status DC Lactated Ringer's 1,000 ml @ 75 mls/hr [id number] IV Last administered on 07:36; Start 11/19/16 at 07:30; Stop 11/20/16 at 19:39; Status DC Vancomycin HCl 250 ml @ 250 mls/hr 1X PREOP IV ; Start 11/19/16 at 08:00; Stop 11/20/16 at 07:59; Status DC Glycopyrrolate (Robinul) 1 mg STK-MED ONCE .ROUTE ; Start 11/19/16 at 08:51; Stop 11/19/16 at 08:52; Status DC Rocuronium Murdock 100 mg 100 mg STK-MED ONCE .ROUTE ; Start 11/19/16 at 08:51; Stop 11/19/16 at 08:52; Status DC Vancomycin HCl/ Sodium Chloride (Iv Sodium Chloride 0.9% 500ml Bag) 500 ml @ 0 mls/hr 1X ONCE IV Last administered on 11/19/16 09:48; Start 11/19/16 at 09: 00; Stop 11/19/16 at 09:15; Status DC Sufentanil Citrate (Sufenta) 100 mcg STK-MED ONCE .ROUTE ; Start 11/19/16 at 08: 56; Stop 11/19/16 at 08:57; Status DC Midazolam HCl (Versed) 5 mg STK-MED ONCE .ROUTE ; Start 11/19/16 at 09:25; Stop 11/19/16 at 09:26; Status DC Protamine Sulfate 50 mg STK-MED ONCE IV ; Start 11/19/16 at 11:50; Stop at 11:51; Status DC Protamine Sulfate 250 mg STK-MED ONCE IV ; Start 11/19/16 at 11:50; Stop at 11:51; Status DC Protamine Sulfate 250 mg STK-MED ONCE IV ; Start 11/19/16 at 11:57; Stop at 11:58; Status DC Lidocaine HCl (Lidocaine HCl 2% Abboject) 100 mg STK-MED ONCE .ROUTE ; Start at 12:26; Stop 11/19/16 at 12:27; Status DC Mannitol (Mannitol) 12.5 g STK-MED ONCE .ROUTE ; Start 11/19/16 at 12:26; Stop 11/19/16 at 12:27; Status DC Calcium Chloride 1000 mg 1,000 mg STK-MED ONCE IV ; Start 11/19/16 at 12:26; Stop 11/19/16 at 12:27; Status DC Albumin Human (Albuminar) 100 ml @ As Directed STK-MED ONCE IV ; Start at 12:26; Stop 11/19/16 at 12:27; Status DC Heparin Sodium (Porcine) 30,000 unit STK-MED ONCE .ROUTE ; Start 11/19/16 at 12: 26; Stop 11/19/16 at 12:27; Status DC Magnesium Sulfate 5 gm STK-MED ONCE .ROUTE ; Start 11/19/16 at 12:26; Stop 11/19 at 12:27; Status DC Sodium Chloride 3 ml 3 ml PRN Q12HR PRN IV AFTER MEDS AND BLOOD DRAWS; Start at 13:15 Lactated Ringer's 1,000 ml @ 30 mls/hr Q24H IV Last administered on 11/20/16t 19:36; Start 11/19/16 at 13:12; Stop 11/21/16 at 16:30; Status DC Insulin Human Regular/Sodium Chloride (Novolin R Vial/ Iv Normal Saline 150ml) 151.5 ml @ 0 mls/hr CONT PRN PRN IV SEE I/O RECORD; Start 11/19/16 at 13:15; Stop 11/21/16 at 16:30; Status DC Dextrose 25 gm 25 gm PRN Q15MIN PRN IV LOW BLOOD SUGAR; Start 11/19/16 at 13:15 Nitroglycerin/ Dextrose 250 ml @ 0 mls/hr CONT PRN PRN IV SEE I/O RECORD; Start 11/19/16 at 13:15; Stop 11/21/16 at 16:30; Status DC Dopamine HCl/ Dextrose 250 ml @ 0 mls/hr CONT PRN PRN IV SEE I/O RECORD; Start 11/19/16 at 13:15; Stop 11/21/16 at 16:30; Status DC Dobutamine HCl/ Dextrose 250 ml @ 0 mls/hr CONT PRN PRN IV SEE I/O RECORD; Start 11/19/16 at 13:15; Stop 11/21/16 at 16:30; Status DC Phenylephrine HCl 20 mg/Sodium Chloride 252 ml @ 0 mls/hr CONT PRN PRN IV HYPOTENSION; Start 11/19/16 at 13:15; Stop 11/21/16 at 16:30; Status DC Epinephrine HCl/ Sodium Chloride (Adrenalin/Iv Sodium Chloride 0.9% 250ml) 254 ml @ 0 mls/hr CONT PRN PRN IV POST CV SURGERY; Start 11/19/16 at 13:15; Stop at 16:30; Status DC Info 1 ea CONT PRN PRN MC SEE COMMENTS; Start 11/19/16 at 13:15; Stop 11/23/16 at 08:23; Status DC Info 1 ea 1 ea CONT PRN PRN MC SEE COMMENTS; Start 11/19/16 at 13:15; Stop at 16:30; Status DC Magnesium Sulfate/ Dextrose (Magnesium Sulfate PREMIX 1GM) 100 ml @ 100 mls/hr PRN DAILY PRN IV FOR MAG < 2.2 Last administered on 11/20/16 08:28; Start at 13:15; Stop 11/23/16 at 08:23; Status DC Famotidine (Pepcid) 20 mg BID IVP Last administered on 11/20/16 21:11; Start 11/19/16 at 21:00; Stop 11/21/16 at 07:54; Status DC Ondansetron HCl (Zofran) 4 mg PRN Q4HRS PRN IV NAUSEA/VOMITING Last administered on 11/19/16 20:43; Start 11/19/16 at 13:15 Prochlorperazine Edisylate (Compazine) 10 mg PRN Q6HRS PRN IV NAUSEA/VOMITING Last administered on 11/20/16 13:10; Start 11/19/16 at 13:15 Morphine Sulfate 2 mg PRN Q1HR PRN IV PAIN Last administered on 11/19/16 15:30 ; Start 11/19/16 at 13:15 Acetaminophen (Tylenol) 650 mg PRN Q4HRS PRN PO MILD PAIN / TEMP Last administered on 11/24/16 12:34; Start 11/19/16 at 13:15 Acetaminophen (Acetaminophen Supp) 650 mg PRN Q4HRS PRN NC MILD PAIN / TEMP; Start 11/19/16 at 13:15; Stop 11/23/16 at 08:23; Status DC Meperidine HCl 12.5 mg 12.5 mg PRN Q15MIN PRN IV SHIVERING; Start 11/19/16 at 13:15; Stop 11/20/16 at 13:14; Status DC Propofol (Diprivan) 100 ml @ 0 mls/hr CONT PRN PRN IV POSTOP SEDATION UNTIL EXTUBATE Last administered on 11/19/16 15:47; Start 11/19/16 at 13:15; Stop at 16:30; Status DC Senna/Docusate Sodium (Senna Plus) 1 tab BID PO Last administered on 11/23/16 09:32; Start 11/19/16 at 21:00 Bisacodyl (Dulcolax Supp) 10 mg PRN DAILY PRN NC NO BOWEL MOVEMENT; Start 11/19 at 13:15 Chlorhexidine Gluconate (Peridex) 15 ml BID MM ; Start 11/19/16 at 21:00; Stop 11/20/16 at 04:44; Status DC Aspirin 325 mg 325 mg [id number] PO Last administered on 11/24/16 09:16; Start 11/20/16 at 08:00 Nicardipine HCl 50 mg/Sodium Chloride 270 ml @ 0 mls/hr CONT PRN PRN IV PER PROTOCOL; Start 11/19/16 at 13:15; Stop 11/21/16 at 16:30; Status DC Clevidipine (Cleviprex) 100 ml @ 0 mls/hr CONT PRN IV PER PROTOCOL; Start 11/19 at 13:15; Stop 11/21/16 at 16:30; Status DC Acetaminophen/ Hydrocodone Bitart (Lortab 5/325) 1 tab PRN Q4HRS PRN PO MILD PAIN; Start 11/19/16 at 13:15 Acetaminophen/ Hydrocodone Bitart 2 tab 2 tab PRN Q4HRS PRN PO MODERATE PAIN, SEVERE PAIN Last administered on 11/20/16 05:43; Start 11/19/16 at 13:15 Cefazolin Sodium/ Dextrose 50 ml @ 100 mls/hr Q8H IV ; Start 11/19/16 at 13:30 ; Stop 11/20/16 at 21:59; Status UNV Potassium Chloride 50 ml @ 50 mls/hr 1X ONCE IV Last administered on 15:38; Start 11/19/16 at 15:00; Stop 11/19/16 at 15:59; Status DC Albumin Human 250 ml @ 62.5 mls/hr CONT PRN IV SEE COMMENTS Last administered on 11/19/16 15:58; Start 11/19/16 at 15:15; Stop 11/21/16 at 16:30; Status DC Phenylephrine HCl 20 mg/Sodium Chloride 252 ml @ 0 mls/hr CONT PRN IV SEE I/O RECORD Last administered on 11/19/16 16:26; Start 11/19/16 at 16:15; Stop 11/21 at 16:30; Status DC Vancomycin HCl/ Sodium Chloride (Iv Sodium Chloride 0.9% 500ml Bag) 500 ml @ 250 mls/hr Q12H IV Last administered on 11/20/16 21:11; Start 11/19/16 at 20: 00; Stop 11/20/16 at 21:59; Status DC Lidocaine HCl 1 ml STK-MED ONCE .ROUTE ; Start 11/19/16 at 20:47; Stop 11/19/16 at 20:48; Status DC Sodium Bicarbonate 50 meq 1X ONCE IV Last administered on 11/19/16 22:13; Start 11/19/16 at 22:30; Stop 11/19/16 at 22:31; Status DC Furosemide 40 mg 40 mg 1X ONCE IVP Last administered on 11/20/16 05:42; Start 11/20/16 at 05:00; Stop 11/20/16 at 05:01; Status DC Potassium Chloride 50 ml @ 50 mls/hr 1X ONCE IV Last administered on 09:26; Start 11/20/16 at 08:30; Stop 11/20/16 at 09:29; Status DC Potassium Chloride (KCl Premix 20meq) 50 ml @ 50 mls/hr 1X ONCE IV ; Start at 08:30; Stop 11/20/16 at 09:29; Status UNV Vancomycin HCl 1 gm STK-MED ONCE .ROUTE ; Start 11/19/16 at 07:00; Stop at 08:37; Status DC Ketorolac Tromethamine (Toradol) 15 mg 1X ONCE IV Last administered on 13:10; Start 11/20/16 at 13:00; Stop 11/20/16 at 13:03; Status DC Atorvastatin Calcium (Lipitor) 40 mg QHS PO Last administered on 11/23/16 21:42 ; Start 11/20/16 at 21:00 Furosemide (Lasix) 20 mg [id number] IVP Last administered on 11/21/16 09:45; Start 11/20/16 at 18:00; Stop 11/22/16 at 14:08; Status DC Famotidine (Pepcid) 20 mg BID PO Last administered on 11/24/16 09:16; Start at 09:00 Tramadol HCl (Ultram) 50 mg PRN Q6HRS PRN PO PAIN Last administered on 21:56; Start 11/21/16 at 14:00 Metoprolol Tartrate (Lopressor) 12.5 mg BID PO Last administered on 11/24/16 09 :18; Start 11/21/16 at 14:00 Potassium Chloride (Klor-Con) 40 meq 1X ONCE PO Last administered on 09:34; Start 11/22/16 at 09:15; Stop 11/22/16 at 09:21; Status DC Furosemide (Lasix) 40 mg 1X ONCE IVP ; Start 11/22/16 at 09:15; Stop 11/22/16 at 09:21; Status DC Furosemide (Lasix) 20 mg NOON IVP Last administered on 11/22/16 14:15; Start 11/22/16 at 14:15; Stop 11/23/16 at 08:23; Status DC Potassium Chloride (Klor-Con) 40 meq 1X ONCE PO Last administered on 11/23/16 09:31; Start 11/23/16 at 08:15; Stop 11/23/16 at 08:16; Status DC Magnesium Hydroxide 2400 mg 2,400 mg PRN DAILY PRN PO CONSTIPATION Last administered on 11/23/16 09:31; Start 11/23/16 at 08:45; Stop 11/23/16 at 21:00; Status DC Magnesium Sulfate/ Dextrose (Magnesium Sulfate PREMIX 4GM) 100 ml @ 25 mls/hr 1X ONCE IV Last administered on 11/23/16 10:51; Start 11/23/16 at 10:00; Stop 11/23/16 at 13:59; Status DC Docusate Sodium (Colace) 100 mg BID PO ; Start 11/23/16 at 21:00 Magnesium Hydroxide (Milk Of Magnesia) 2,400 mg BID PO ; Start 11/23/16 at 21:00 Potassium Chloride 20 meq 20 meq 1X ONCE PO Last administered on 11/24/16 09: 23; Start 11/24/16 at 08:30; Stop 11/24/16 at 08:31; Status DC Amiodarone HCl 150 mg/Dextrose 103 ml @ 618 mls/hr 1X ONCE IV Last administered on 11/24/16 11:15; Start 11/24/16 at 10:30; Stop 11/24/16 at 10:39; Status DC Amiodarone HCl/ Dextrose (Cordarone) 518 ml @ 0 mls/hr CONT PRN IV SEE I/O RECORD Last administered on 11/24/16 11:20; Start 11/24/16 at 10:30; Stop at 11:20; Status DC Amiodarone HCl (Cordarone) 200 mg BID PO ; Start 11/24/16 at 13:15; Stop at 12:00 Amiodarone HCl (Cordarone) 200 mg DAILY PO ; Start 12/03/16 at 09:00 Active Scripts Active Vitals/I & O Vital Sign - Last 24 Hours 11/23/16 11/23/16 11/23/16 11/23/16 14:32 19:12 19:45 21:44 Temp 97.9 98.1 97.9 98.1 Pulse 62 78 78 Resp B/P 99/56 101/61 101/61 Pulse Ox 93 93 O2 Delivery Nasal Cannula Room Air Room Air O2 Flow Rate 2.0 11/23/16 11/24/16 11/24/16 11/24/16 23:26 03:36 07:00 08:31 Temp 98.6 98.0 97.6 98.6 98.0 97.6 Pulse 71 68 74 Resp B/P 93/52 97/54 102/59 Pulse Ox 94 93 94 O2 Delivery Room Air Room Air Room Air Room Air 11/24/16 11/24/16 11/24/16 09:18 11:15 11:26 Temp 97.8 97.8 Pulse 74 68 69 Resp B/P 105/59 110/59 118/58 Pulse Ox 96 O2 Delivery Room Air Intake and Output 11/23/16 11/23/16 11/24/16 15:00 23:00 07:00 Intake Total 640 ml 780 ml 600 ml Output Total 1100 ml Balance 640 ml 780 ml -500 ml JEANETTENIAL K III DO November 24, 2016 13:23
[2016-11-24] MEDS ORDERED: ASPI325T11 PO (13:29)
[2016-11-24 13:36] VITALS: BP 105/62
[2016-11-24] MEDS ORDERED: AMIO200T2 PO (13:44)
--- NOTE | 2016-11-24 15:03 | PDOC ---
Progress Note Subjective Subjective Doing excellent, no issues. Normotensive, sinus rhythm. Had 10 beat run of Afib early this morning ROS ROS No nausea No vomiting No pain No rash Vital Sign Vital Signs Vital Signs Date Time Temp Pulse Resp B/P Pulse Ox O2 Delivery O2 Flow Rate FiO2 11/24/16 13:36 69 105/62 11/24/16 11:26 97.8 17 96 Room Air 97.8 11/23/16 14:32 2.0 Physical Exam PHYSICAL EXAM PHYSICAL EXAM General: Alert, cooperative, no distress Heart: Regular rate, normal S1, normal S2, sternotomy: stable, clean, dry and intact. Lungs: Clear Abdomen: Soft, non tender Extremities: No clubbing, no edema, normal pulses Skin: No rashes, no breakdown Labs Lab Laboratory Tests Test 11/24/16 03:40 Potassium Level 3.6mmol/L (3.5-5.1) Magnesium Level 2.2mg/dL (1.8-2.4) Objective Assessment POD#5, s/p CABG x 2 (GUZMÁN to LAD, SVG to OM). Doing excellent, no issues. Normotensive, sinus rhythm. Had 10 beat run of Afib early this morning Plan Plan of Care D/c home today Home with 2 weeks of po Amiodarone for Afib prophylaxis, after 150mg iv bolus F/u in clinic in 3 weeks No DAVID Freedman MD November 24, 2016 15:03
[2016-12-03] MEDS ORDERED: AMIODARONE HCL 200 MG TABLET. PO SCH (09:00)
== END 2016-11-24 17:00 | disposition home or self-care (01) | DRG 233 ==
LOC: 2 SOUTH 03:08 → 1 WEST ICU 11-19 09:44 → 2 SOUTH 11-21 19:46
PROVIDERS: ADMIT Internal Medicine; ATTEND Internal Medicine
PROC: 0210093 Bypass Coronary Artery, One Artery from Coronary Artery with Autologous Venous Tissue, Open Approach (ICD-10-PCS; 2016-11-19)
PROC: 06BQ4ZZ Excision of Left Saphenous Vein, Percutaneous Endoscopic Approach (ICD-10-PCS; 2016-11-19)
PROC: B2151ZZ Fluoroscopy of Left Heart using Low Osmolar Contrast (ICD-10-PCS; 2016-11-19)
PROC: 5A1221Z Performance of Cardiac Output, Continuous (ICD-10-PCS; 2016-11-19)
PROC: 5A1935Z Respiratory Ventilation, Less than 24 Consecutive Hours (ICD-10-PCS; 2016-11-19)
PROC: 0BH17EZ Insertion of Endotracheal Airway into Trachea, Via Natural or Artificial Opening (ICD-10-PCS; 2016-11-19)
PROC: 02100Z9 Bypass Coronary Artery, One Artery from Left Internal Mammary, Open Approach (ICD-10-PCS; principal; 2016-11-19 07:30)
DX: I21.4 Non-ST elevation (NSTEMI) myocardial infarction (principal); E43 Unspecified severe protein-calorie malnutrition; I50.31 Acute diastolic (congestive) heart failure; E87.6 Hypokalemia; K21.9 Gastro-esophageal reflux disease without esophagitis; I25.10 Atherosclerotic heart disease of native coronary artery without angina pectoris; M06.9 Rheumatoid arthritis, unspecified; E78.5 Hyperlipidemia, unspecified; E83.42 Hypomagnesemia; I48.0 Paroxysmal atrial fibrillation; I44.0 Atrioventricular block, first degree; K59.00 Constipation, unspecified; D64.9 Anemia, unspecified; Z98.51 Tubal ligation status; Z82.49 Family history of ischemic heart disease and other diseases of the circulatory system; Z80.8 Family history of malignant neoplasm of other organs or systems; Z88.0 Allergy status to penicillin; Z88.8 Allergy status to other drugs, medicaments and biological substances
CPT/HCPCS: 36415; 36600; 71010; 71250; 78452; 80048; 80053; 80061; 82550; 82803; 82805; 82947; 83735; 84132; 84443; 84484; 85027; 85347; 85384; 85610; 85730; 86850; 86900; 86901; 86920; 93005; 93017; 93306; 93458; 93880; 93970; 94002; 96374; 96375; 96376; A9500; C1769; C1781; C1887; C1892; J0282; J0690; J0780; J1644; J1885; J1940; J2150; J2250; J2270; J2405; J2440; J2704; J2785; J3010; J3370; J3475; J3480; J3490; J7040; J7050; J7060; J7120; P9041; P9046; Q9967; S0028; 97110; 97116; 97530; 97535; J2001; J7030

== ENCOUNTER 2016-12-04 11:20 | Emergency (ER) | payer MEDICARE, OTHER ==
[~2016-12-04] VITALS: Ht 160 cm; Wt 82.6 kg
[~2016-12-04 11:20] MED LIST: AMIO200T2 PO; ASPI325T11 PO; ATOR40TA59 PO; METO25TA4 PO; TRAM50TA PO
[2016-12-04 11:53] LABS: BILIRUBIN,URINE NEGATIVE (NEG); GLUCOSE,URINE NEGATIVE (NEG); NITRITE,URINE NEGATIVE (NEG); PROTEIN,URINE NEGATIVE (NEG-TRACE); UROBILINOGEN,URINE 0.2 mg/dL (0.2 mg/dL)
[2016-12-04 11:54] LABS: BACTERIA,URINE 0 /HPF (0-FEW); RBC,URINE 0 /HPF (0-2); SQUAMOUS EPITHELIAL CELL,UR FEW /LPF; WBC,URINE 0 /HPF (0-4)
[2016-12-04 12:30] LABS: BASO # 0.1 x10^3/uL (0.0-0.2); BASO % 1 % (0-3); EOS % 2 % (0-3); HEMATOCRIT 36.7 % (36.0-47.0); HEMOGLOBIN 12.3 g/dL (12.0-15.5); LYMPH # 0.9 x10^3/uL (1.0-4.8); LYMPH % 11 % (24-48); MEAN CORPUSCULAR HEMOGLOBIN 30 pg (25-35); MEAN CORPUSCULAR HGB CONC 34 g/dL (31-37); MEAN CORPUSCULAR VOLUME 88 fL (79-100); MONO % 6 % (0-9); NEUT % 79 % (31-73); PLATELET COUNT 385 x10^3/uL (140-400); RED BLOOD COUNT 4.15 x10^6/uL (3.50-5.40); RED CELL DISTRIBUTION WIDTH 13.8 % (11.5-14.5); WHITE BLOOD COUNT 7.5 x10^3/uL (4.0-11.0)
[2016-12-04 12:36] LABS: CALCIUM 9.3 mg/dL (8.5-10.1); CREATININE 1.1 mg/dL (0.6-1.0); GFR 49.7; POTASSIUM 4.5 mmol/L (3.5-5.1)
--- NOTE | 2016-12-04 12:55 | PHYS DOC ---
Past Medical History Past Medical History: GERD, Heart Disease Past Surgical History: Coronary Bypass Surgery, Tonsillectomy Alcohol Use: Rarely Drug Use: None Adult General Chief Complaint Chief Complaint: FLANK PAIN HPI HPI 66-year-old female presenting to the emergency department with left sided flank pain and low back pain. She was seen by myself in [place] emergency department for similar complaint approximately 2 or 3 days ago. She is status post a CABG. She denies chest pain shortness of breath unilateral leg swelling. Onset 3 days. Location left flank. Nonradiating. Mild to moderate. Review of systems is negative for fevers chills. She has had hematuria. She denies abdominal pain nausea or vomiting. All other review of systems is negative unless otherwise noted in history of present illness. Review of Systems Review of Systems SEE ABOVE. Allergies Allergies Allergies Coded Allergies Type Severity Reaction Last Updated Verified Penicillins Allergy Intermediate HIVES, SKIN REACTION 11/19/16 Yes lidocaine Adverse Reaction Intermediate "FEELS SICK" 11/19/16 Yes Physical Exam Physical Exam Constitutional: Well developed, well nourished, no acute distress, non-toxic appearance. HENT: Normocephalic, atraumatic, bilateral external ears normal, oropharynx moist, no oral exudates, nose normal. [] Eyes: PERRLA, EOMI, conjunctiva normal, no discharge. [] Neck: Normal range of motion, no tenderness, supple, no stridor. Cardiovascular:Heart rate regular rhythm, no murmur [] Lungs & Thorax: Bilateral breath sounds clear to auscultation Abdomen: Bowel sounds normal, soft, no tenderness, no masses, no pulsatile masses. [] Skin: Warm, dry, no erythema, no rash. Back: No tenderness, no CVA tenderness. [] Extremities: No tenderness, no cyanosis, no clubbing, ROM intact, no edema. Neurologic: Alert and oriented X 3, normal motor function, normal sensory function, no focal deficits noted. Psychologic: Affect normal, judgement normal, mood normal. [] Current Patient Data Vital Signs Vital Signs Date Time Temp Pulse Resp B/P (MAP) Pulse Ox O2 Delivery O2 Flow Rate FiO2 12/04/16 13:38 62 18 103/55 (71) 94 Room Air 12/04/16 11:42 97.7 97.7 Lab Values Laboratory Tests Test 5/12/17 11:33 12/04/16 12:15 Urine Collection Type Unknown Urine Color Yellow Urine Clarity Clear Urine pH 6.0 Urine Specific [place] 1.020 Urine Protein Negative mg/dL (NEG-TRACE) Urine Glucose (UA) Negative mg/dL (NEG) Urine Ketones (Stick) Negative mg/dL (NEG) Urine Blood Trace (NEG) Urine Nitrite Negative (NEG) Urine Bilirubin Negative (NEG) Urine Urobilinogen Dipstick 0.2 mg/dL (0.2 mg/dL) Urine Leukocyte Esterase Negative (NEG) Urine RBC 0 /HPF (0-2) Urine WBC 0 /HPF (0-4) Urine Squamous Epithelial Cells Few /LPF Urine Bacteria 0 /HPF (0-FEW) Urine Mucus Slight /LPF White Blood Count 7.5 x10^3/uL (4.0-11.0) Red Blood Count 4.15 x10^6/uL (3.50-5.40) Hemoglobin 12.3 g/dL (12.0-15.5) Hematocrit 36.7 % (36.0-47.0) Mean Corpuscular Volume 88 fL (79-100) Mean Corpuscular Hemoglobin 30 pg (25-35) Mean Corpuscular Hemoglobin Concent 34 g/dL (31-37) Red Cell Distribution Width 13.8 % (11.5-14.5) Platelet Count 385 x10^3/uL (140-400) # Neutrophils (%) (Auto) 79 % (31-73) H Lymphocytes (%) (Auto) 11 % (24-48) L Monocytes (%) (Auto) 6 % (0-9) Eosinophils (%) (Auto) 2 % (0-3) Basophils (%) (Auto) 1 % (0-3) Neutrophils # (Auto) 5.9 x10^3uL (1.8-7.7) Lymphocytes # (Auto) 0.9 x10^3/uL (1.0-4.8) L Monocytes # (Auto) 0.5 x10^3/uL (0.0-1.1) Eosinophils # (Auto) 0.2 x10^3/uL (0.0-0.7) Basophils # (Auto) 0.1 x10^3/uL (0.0-0.2) Sodium Level 139 mmol/L (136-145) Potassium Level 4.5 mmol/L (3.5-5.1) Chloride Level 105 mmol/L (98-107) Carbon Dioxide Level 28 mmol/L (21-32) Anion Gap 6 (6-14) Blood Urea Nitrogen 14 mg/dL (7-20) Creatinine 1.1 mg/dL (0.6-1.0) H Estimated GFR (Cockcroft-Gault) 49.7 Glucose Level 133 mg/dL (70-99) H Calcium Level 9.3 mg/dL (8.5-10.1) Laboratory Tests 12/04/16 12:15 Laboratory Tests 12/04/16 12:15 EKG EKG [] Radiology/Procedures Radiology/Procedures [] Course & Med Decision Making Course & Med Decision Making Pertinent Labs and Imaging studies reviewed. (See chart for details) [] 66-year-old female presenting the emergency department with left-sided flank pain. Triage vital signs afebrile normal heart rate. Normal blood pressure. Pertinent physical exam shows mild left CVA tenderness otherwise nontender abdomen nontender appendix. The patient was given oral pain medication in the emergency department. CT the abdomen pelvis noncontrast obtained. Blood work obtained. CT the abdomen pelvis confirmed nephrolithiasis. The patient was then discharged home in stable condition to follow up with their primary care physician over the next 2-3 days. They were to return if their symptoms worsened or if they were concerned for any reason. [id number] discharge instructions and return precautions were given. Patient's questions were answered to their satisfaction. Patient is comfortable plan. Dragon Disclaimer Dragon Disclaimer This electronic medical record was generated, in whole or in part, using a voice recognition dictation system. Departure Departure Impression: Primary Impression: Left flank pain Disposition: HOME, SELF-CARE Condition: STABLE Referrals: NO PCP (PCP) DAISY GROVER MD Patient Instructions: Flank Pain Additional Instructions: Thank you for allowing us to participate in your care today. Followup with your primary care physician in 3 days if your symptoms do not improve. If you do not have a primary care provider you can ask for a list of our primary care providers. Return to the emergency department you have any new or concerning findings. This should be evaluated by the primary care physician and any necessary consulting services for continued management within a few days after discharge. Return to emergency room if you have any new or concerning symptoms including but not limited to fever, chills, nausea, vomiting, intractable pain, any new rashes, chest pain, shortness of air, uncontrolled bleeding, difficulty breathing, and/or vision loss. You may have been prescribed medication that can change in your level of thinking and ability to operate machinery. These medications include hydrocodone and Ativan. Also, Benadryl has been known to do this as well. Be sure to check with your pharmacist and ask if the medications you've prescribed can affect your level of consciousness. I recommend not operating heavy machinery or driving while on medication such as these. NNEKA PERALTA MD December 04, 2016 12:55
--- NOTE | 2016-12-04 14:28 | RAD ---
Exam performed: CT abdomen pelvis without contrast. History: Right Flank pain, hematuria. Date of service: 12/04/16. Comparison: None available Technique: Contiguous helical acquisitions are obtained through the abdomen and pelvis without IV contrast. Sagittal and coronal reformatted images are obtained and reviewed. Findings: Small left pleural effusion with underlying atelectasis with tiny right pleural effusion and underlying atelectasis. The visualized heart is normal. Small hiatal hernia. Lack of IV contrast limits evaluation of abdominal viscera, however the liver, spleen and pancreas appear normal. The gallbladder is distended. Both adrenal glands and bilateral kidneys are normal in size. There is no hydronephrosis. There is a 2.9 mm right inferior renal pole calculus. There are also couple punctate 1 to 2 mm nonobstructing catheter and the left inferior renal pole. No perinephric stranding is seen. The aorta is normal in caliber demonstrating mild atheromatous calcification. Small and large bowel loops are nondilated and unremarkable. Visualized appendix is normal. No inflammatory changes are seen in the right lower quadrant. The urinary bladder is decompressed. Uterus is retroverted. Large partially calcified mass is seen in the uterine fundus likely a calcified fibroid. No adnexal masses seen. No free or focal fluid collections or pelvic lymphadenopathy seen. Sigmoid diverticulosis without acute diverticulitis. Interrogation of bone windows demonstrates no bony abnormalities. Mild spondylotic changes are seen with degenerative disc disease at L4-5 and L5-S1. There is minimal grade 1 retrolisthesis of L4 over L5. Vacuum disc phenomena. Mild loss of anterior height of L4 vertebral body is seen. Impression: 1. Small left and tiny right pleural effusion with underlying atelectasis. 2. Nonobstructing 2.9 mm right inferior renal pole calculus with punctate 1 to 2 mm calculi in the left inferior renal pole. No hydronephrosis. 3. Sigmoid diverticulosis without acute diverticulitis. 4. Uterine fibroid. PQRS Compliance Statement: One or more of the following individualized dose reduction techniques were utilized for this examination: 1. Automated exposure control 2. Adjustment of the mA and/or kV according to patient size 3. Use of iterative reconstruction technique
[2016-12-04 14:30] VITALS: BP 112/57
--- NOTE | 2016-12-04 14:32 | PDOC2 ---
CONSULT Date of Consult Date of Consult DATE: 12/04/16 TIME: 14:14 Reason for Consult Reason for Consult: Flank pain status post CABG Referring Physician Referring Physician: Emergency room Identification/Chief Complaint Chief Complaint Left flank pain Source Source: Chart review, Patient History of Present Illness Reason for Visit: Ms Ellington is a 66-year-old female who underwent CABG 2 by me, 2 weeks ago. She made an uneventful postoperative recovery. She returns to the emergency room with complaints of left flank pain for the last 5 days. She reports some mild associated hematuria which has now resolved. She initially went to [facility] emergency room 5 days ago. She describes the pain as throbbing, mild to moderate in severity, predominantly in her left flank, nonradiating, exacerbated by moving/cough and alleviated by sitting or lying down. She otherwise denies incisional chest pain, angina, shortness of breath, palpitations, ankle swelling. Her CBC demonstrated a normal WBC and biochemistry was also normal. Her 12-lead EKG showed normal sinus rhythm. Her urinalysis was essentially normal. CT scan of the abdomen did not show gross abnormalities. There was no marginal nephrosis, no kidney stones. There was a left pleural effusion which is expected after a CABG and was not significant. Past Medical History Cardiovascular: No pertinent hx Pulmonary: No pertinent hx GI: GERD Heme/Onc: No pertinent hx Hepatobiliary: No pertinent hx Psych: No pertinent hx Musculoskeletal: Other Rheumatologic: Rheumatoid arthritis Infectious disease: No pertinent hx Renal/: No pertinent hx Endocrine: No pertinent hx Past Surgical History Past Surgical History: Tubal Ligation, Tonsillectomy Family History Family History: Cancer, Coronary Artery Disease Social History ALCOHOL: none Drugs: None Lives: with Family Current Problem List Problem List Problems Medical Problems: (1) Left flank pain Status: Acute Current Medications Current Medications Active Scripts Active Amiodarone Hcl 200 Mg Tablet 200 Mg PO BID SIG: ONE TAB EVERY 12 HOURS x 7 DAYS; THEN ONE TAB DAILY UNTIL COMPLETED Aspirin Ec (Aspirin) 325 Mg Tablet.dr 325 Mg PO [id number] Tramadol Hcl 50 Mg Tablet 50 Mg PO PRN Q6HRS PRN SIG: ONE TAB EVERY 6 HOURS NEEDED FOR INCISIONAL PAIN Metoprolol Tartrate 25 Mg Tablet 12.5 Mg PO BID SIG: ONE-HALF TAB EVERY 12 HOURS Atorvastatin Calcium 40 Mg Tablet 40 Mg PO QHS Allergies Allergies: Coded Allergies: Penicillins (Verified Allergy, Intermediate, HIVES, SKIN REACTION, 11/19/16 ) lidocaine (Verified Adverse Reaction, Intermediate, "FEELS SICK", 11/19/16) ROS General: No: Chills, Night Sweats, Fatigue, Malaise, Appetite PSYCHOLOGICAL ROS: No: Anxiety, Behavioral Disorder, Concentration difficultie , Decreased libido, Depression, Disorientation, Hallucinations, Hostility, Irritablity, Memory difficulties, Mood Swings, Obsessive thoughts, Physical abuse, Sexual abuse, Sleep disturbances, Suicidal ideation Eyes: No Blurry vision, No Decreased vision, No Double vision, No Dry eyes, No Excessive tearing, No Eye Pain, No Itchy Eyes, No Loss of vision, No Photophobia , No Scotomata, No Uses contacts, No Uses glasses HEENT: No: Heacaches, Visual Changes, Hearing change, Nasal congestion, Nasal discharge, Oral lesions, Sinus pain, Sore Throat, Epistaxis, Sneezing, Snoring, Tinnitus, Vertigo, Vocal changes ALLERGY AND IMMUNOLOGY: No: Hives, Insect Bite Sensitivity, Itchy/Watery Eyes, Nasal Congestion, Post Nasal Drip, Seasonal Allergies Hematological and Lymphatic: No: Bleeding Problems, Blood Clots, Blood Transfusions, Brusing, Night Sweats, Pallor, Swollen Lymph Nodes ENDOCRINE: No: Breast Changes, Galactorrhea, Hair Pattern Changes, Hot Flashes , Malaise/lethargy, Mood Swings, Palpitations, Polydipsia/polyuria, Skin Changes , Temperature Intolerance, Unexpected Weight Changes Respiratory: No: Cough, Hemoptysis, Orthopnea, Pleuritic Pain, Shortness of breath, SOB with excertion, Sputum Changes, Stridor, Tachypnea, Wheezing Cardiovascular: No Chest Pain, No Palpitations, No Orthopnea, No Paroxysmal Noc. Dyspnea, No Edema, No Lt Headedness Gastrointestinal: No Nausea, No Vomiting, No Abdominal Pain, No Diarrhea, No Constipation, No Melena, No Hematochezia Genitourinary: No Dysuria, No Frequency, No Incontinence, No Hematuria, No Retention, No Discharge, No Urgency, No Pain, No Flank Pain Musculoskeletal: No Gait Disturbance, No Joint Pain, No Joint Stiffness, No Joint Swelling, No Muscle Pain, No Muscular Weakness, No Pain In:, No Swelling In: Neurological: No Behavorial Changes, No Bowel/Bladder ControlChng, No Confusion , No Dizziness, No Gait Disturbance, No Headaches, No Impaired Coord/balance, No Memory Loss, No Numbness/Tingling, No Seizures, No Speech Problems, No Tremors, No Visual Changes, No Weakness Skin: No Dry Skin, No Eczema, No Hair Changes, No Lumps, No Mole Changes, No Mottling, No Nail Changes, No Pruritus, No Rash, No Skin Lesion Changes, No Acne Physical Exam General: Alert, Oriented X3, No acute distress HEENT: Atraumatic, PERRLA Lungs: Clear to auscultation Heart: Regular rate, Normal S1, Normal S2 Abdomen: Soft, No tenderness Extremities: No edema, Normal pulses Skin: No significant lesion Neuro: Normal gait, Normal speech, Strength at 5/5 X4 ext, Normal tone, Sensation intact Psych/Mental Status: Mental status NL MUSCULOSKELETAL: Other (localized left flank tenderness) Vitals VITALS Vital Signs Date Time Temp Pulse Resp B/P (MAP) Pulse Ox O2 Delivery O2 Flow Rate FiO2 12/04/16 13:38 62 18 103/55 (71) 94 Room Air 12/04/16 11:42 97.7 97.7 Labs Labs Laboratory Tests Test 12/04/16 11:33 12/04/16 12:15 Urine Collection Type Unknown Urine Color Yellow Urine Clarity Clear Urine pH 6.0 Urine Specific [place] 1.020 Urine Protein Negative mg/dL (NEG-TRACE) Urine Glucose (UA) Negative mg/dL (NEG) Urine Ketones (Stick) Negative mg/dL (NEG) Urine Blood Trace (NEG) Urine Nitrite Negative (NEG) Urine Bilirubin Negative (NEG) Urine Urobilinogen Dipstick 0.2 mg/dL (0.2 mg/dL) Urine Leukocyte Esterase Negative (NEG) Urine RBC 0 /HPF (0-2) Urine WBC 0 /HPF (0-4) Urine Squamous Epithelial Cells Few /LPF Urine Bacteria 0 /HPF (0-FEW) Urine Mucus Slight /LPF White Blood Count 7.5 x10^3/uL (4.0-11.0) Red Blood Count 4.15 x10^6/uL (3.50-5.40) Hemoglobin 12.3 g/dL (12.0-15.5) Hematocrit 36.7 % (36.0-47.0) Mean Corpuscular Volume 88 fL (79-100) Mean Corpuscular Hemoglobin 30 pg (25-35) Mean Corpuscular Hemoglobin Concent 34 g/dL (31-37) Red Cell Distribution Width 13.8 % (11.5-14.5) Platelet Count 385 x10^3/uL (140-400) Neutrophils (%) (Auto) 79 % (31-73) Lymphocytes (%) (Auto) 11 % (24-48) Monocytes (%) (Auto) 6 % (0-9) Eosinophils (%) (Auto) 2 % (0-3) Basophils (%) (Auto) 1 % (0-3) Neutrophils # (Auto) 5.9 x10^3uL (1.8-7.7) Lymphocytes # (Auto) 0.9 x10^3/uL (1.0-4.8) Monocytes # (Auto) 0.5 x10^3/uL (0.0-1.1) Eosinophils # (Auto) 0.2 x10^3/uL (0.0-0.7) Basophils # (Auto) 0.1 x10^3/uL (0.0-0.2) Sodium Level 139 mmol/L (136-145) Potassium Level 4.5 mmol/L (3.5-5.1) Chloride Level 105 mmol/L (98-107) Carbon Dioxide Level 28 mmol/L (21-32) Anion Gap 6 (6-14) Blood Urea Nitrogen 14 mg/dL (7-20) Creatinine 1.1 mg/dL (0.6-1.0) Estimated GFR (Cockcroft-Gault) 49.7 Glucose Level 133 mg/dL (70-99) Calcium Level 9.3 mg/dL (8.5-10.1) Laboratory Tests Test 12/04/16 11:33 12/04/16 12:15 Urine Collection Type Unknown Urine Color Yellow Urine Clarity Clear Urine pH 6.0 Urine Specific [place] 1.020 Urine Protein Negative mg/dL (NEG-TRACE) Urine Glucose (UA) Negative mg/dL (NEG) Urine Ketones (Stick) Negative mg/dL (NEG) Urine Blood Trace (NEG) Urine Nitrite Negative (NEG) Urine Bilirubin Negative (NEG) Urine Urobilinogen Dipstick 0.2 mg/dL (0.2 mg/dL) Urine Leukocyte Esterase Negative (NEG) Urine RBC 0 /HPF (0-2) Urine WBC 0 /HPF (0-4) Urine Squamous Epithelial Cells Few /LPF Urine Bacteria 0 /HPF (0-FEW) Urine Mucus Slight /LPF White Blood Count 7.5 x10^3/uL (4.0-11.0) Red Blood Count 4.15 x10^6/uL (3.50-5.40) Hemoglobin 12.3 g/dL (12.0-15.5) Hematocrit 36.7 % (36.0-47.0) Mean Corpuscular Volume 88 fL (79-100) Mean Corpuscular Hemoglobin 30 pg (25-35) Mean Corpuscular Hemoglobin Concent 34 g/dL (31-37) Red Cell Distribution Width 13.8 % (11.5-14.5) Platelet Count 385 x10^3/uL (140-400) Neutrophils (%) (Auto) 79 % (31-73) Lymphocytes (%) (Auto) 11 % (24-48) Monocytes (%) (Auto) 6 % (0-9) Eosinophils (%) (Auto) 2 % (0-3) Basophils (%) (Auto) 1 % (0-3) Neutrophils # (Auto) 5.9 x10^3uL (1.8-7.7) Lymphocytes # (Auto) 0.9 x10^3/uL (1.0-4.8) Monocytes # (Auto) 0.5 x10^3/uL (0.0-1.1) Eosinophils # (Auto) 0.2 x10^3/uL (0.0-0.7) Basophils # (Auto) 0.1 x10^3/uL (0.0-0.2) Sodium Level 139 mmol/L (136-145) Potassium Level 4.5 mmol/L (3.5-5.1) Chloride Level 105 mmol/L (98-107) Carbon Dioxide Level 28 mmol/L (21-32) Anion Gap 6 (6-14) Blood Urea Nitrogen 14 mg/dL (7-20) Creatinine 1.1 mg/dL (0.6-1.0) Estimated GFR (Cockcroft-Gault) 49.7 Glucose Level 133 mg/dL (70-99) Calcium Level 9.3 mg/dL (8.5-10.1) Assessment/Plan Assessment/Plan 66-year-old female status post CABG 2 weeks ago who made an uneventful postoperative recovery returns to the ER with flank pain. Her workup has been negative. She has a normal white count, normal electrolytes, normal urinalysis. CT scan showed a small left pleural effusion which is expected and not the source of her symptoms. There were no other intra-abdominal abnormalities on CT. She denies incisional pain, angina or shortness of breath, palpitations, ankle swelling. She is in normal sinus rhythm and normotensive. Her pain most likely is musculoskeletal in nature. Overall she looks well and I have no concerns. I think her pain will resolve. I've advised her to stop the amiodarone. She will follow-up in clinic with me next Wednesday, December 11 with a chest x-ray beforehand. [facility] DAVID CHAMPAGNE MD December 04, 2016 14:32
== END 2016-12-04 14:40 | disposition home or self-care (01) ==
LOC: ER 12:50
DX: R10.9 Unspecified abdominal pain (principal); M54.5 Low back pain; R31.9 Hematuria, unspecified; K21.9 Gastro-esophageal reflux disease without esophagitis; M06.9 Rheumatoid arthritis, unspecified; Z95.1 Presence of aortocoronary bypass graft; Z88.0 Allergy status to penicillin; Z88.4 Allergy status to anesthetic agent
CPT/HCPCS: 36415; 74176; 80048; 81001; 85027; 99285-25

== ENCOUNTER → 2016-12-11 | Outpatient (CLI) | payer MEDICARE, OTHER ==
[2016-12-04 14:30] VITALS: BP 112/57
--- NOTE | 2016-12-11 16:31 | RAD ---
Chest, 2 views, 12/11/2016: History: Postop CABG Comparison is made to a study from 11/22/2016. There as been a previous median sternotomy. The heart size and pulmonary vascularity are normal. There is persistent pleural thickening in the left base, although improved since the previous exam. The appearance is that of residual pleural fluid as confirmed on the CT abdomen study of 12/04/2016. There is a tiny amount of residual right-sided pleural fluid. No significant pulmonary infiltrate is seen. Mild spurring is present in the spine. IMPRESSION: 1. Small residual left pleural effusion, improved since 11/22/2016. 2. Tiny right pleural effusion
== END | disposition home or self-care (01) ==
LOC: RAD 12:18
PROVIDERS: ATTEND Thoracic Surgery (Cardiothoracic Vascular Surgery)
DX: Z95.1 Presence of aortocoronary bypass graft (principal)
CPT/HCPCS: 71020